=== PATIENT | male | born 1950 | race Two or more races ===

== ENCOUNTER → 2024-04-19 | Outpatient (CLI) | payer OTHER, MEDICAID, SELFPAY ==
[2024-04-19 17:01] LABS: Collection Type, Urine Clean Catch; Squamous Epithelial Cell,Urine 0 /hpf (0-5)
[2024-04-19 17:39] LABS: Bilirubin,Urine Negative (Negative); Blood,Urine Trace (Negative); Clarity,Urine Clear (Clear/Hazy); Color,Urine Lt-Yellow (Lt Yel-Yel); Glucose, Urine 2+ (Negative); Ketones,Urine Negative (Negative); Leukocyte Esterase,Urine Negative (Negative); Nitrite,Urine Negative (Negative); PH,Urine 6.5 (5.0-7.0); Protein,Urine 1+ (Neg - Trace); RBC,Urine 1 /hpf (0-3); Specific Gravity,Urine 1.013 (1.001-1.035); Urobilinogen,Urine Negative mg/dL (0.0-1.0); WBC,Urine 1 /hpf (0-5)
== END | disposition home or self-care (01) ==
PROVIDERS: PCP Internal Medicine; Referring Provider Internal Medicine; Visit Provider Internal Medicine
DX: N39.0 Urinary tract infection, site not specified (principal)
CPT/HCPCS: 81001; 87086

== ENCOUNTER → 2024-05-29 | Outpatient (CLI) | payer OTHER, MEDICAID, SELFPAY | END | disposition home or self-care (01) | PROVIDERS: PCP Internal Medicine; Referring Provider Internal Medicine; Visit Provider Student in an Organized Health Care Education/Training Program | DX: S01.402A Unspecified open wound of left cheek and temporomandibular area, initial encounter (principal); S21.109A Unspecified open wound of unspecified front wall of thorax without penetration into thoracic cavity, initial encounter; S01.90XA Unspecified open wound of unspecified part of head, initial encounter; X58.XXXA Exposure to other specified factors, initial encounter; D48.5 Neoplasm of uncertain behavior of skin; E11.69 Type 2 diabetes mellitus with other specified complication; N18.4 Chronic kidney disease, stage 4 (severe); Z79.84 Long term (current) use of oral hypoglycemic drugs | CPT/HCPCS: 17250; 99213; A9270; G0463 ==

== ENCOUNTER 2024-06-05 12:00 | Outpatient (RCR) | payer OTHER, SELFPAY ==
--- NOTE | 2024-06-06 08:18 | CTCCONSULT_ITS ---
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 Patient also diagnosed with melanoma in a March 2024 and was advised to follow-up with oncology. Patient was treated with radiation in the past for squamous cancer. Patient now have unhealing wounds. Patient have not received systemic therapy till now. 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 amlodipine - 10 mg 1 tab Daily 2. Aspir-81 - 81 mg 1 tab Daily 3. Colace - 100 mg 1 Capsule Daily 4. furosemide - 40 mg 1 tab Daily 5. glimepiride - 4 mg Daily 6. lovastatin - 40 mg Twice a Day 7. oxybutynin chloride - 5 mg 1 tab In the evening 8. Pyridium - 100 mg 1 tab Twice a Day 9. sertraline - 50 mg 1 tab In the evening 10. tamsulosin - 0.4 mg 1 Capsule In the evening 11. traZODone - 50 mg 1 tab In the evening 12. Trulicity - 0.75 mg/0.5 mL 1 Shot Weekly?Palabra Meds? Medications Last Reconciled by Elizabeth Craft MD on 06/05/2024 ALLERGIES: No Known Drug Allergies REVIEW OF SYSTEMS: A complete 14-point review of systems was performed and is negative except as noted in interval history. PHYSICAL EXAMINATION: VITAL SIGNS: Temperature?99.3, B/P?137/72, Height?64?inches, Oxygen?Saturation?99% Weight?139.6?lbs PAIN: 7 - Between severe and very severe pain ECOG Performance Status: 2 - Symptomatic; ambulatory; capable of self-care; >50% of waking hrs. not in bed GENERAL APPEARANCE: Appears well, in no apparent distress, appropriately interactive. HEENT: Normocephalic, no temporal wasting, normal conjunctiva, no scleral icterus, normal hearing, lips without lesions, neck normal range of motion. CARDIOVASCULAR: Not assessed. PULMONARY: Normal respiratory effort, no respiratory distress or use of accessory muscles, speaking in full sentences, no tachypnea. EXTREMITIES: No pedal edema or cyanosis. SKIN: Normal skin appearance. NEUROLOGIC: Alert and oriented x4. PSHYCHIATRIC: Appropriate affect, mood normal, behavior normal, intact thought and speech. LABORATORY DATA: I have personally reviewed and interpreted each of the patient?s relevant lab tests, abnormal findings are below: Date 07/18/19 ??GLUCOSE,RANDOM?(mg/dL) 220?H ??BLOOD?UREA?NITROGEN?(mg/dL) 33?H ??CREATININE?(mg/dL) 2.20?H ??SODIUM?(mmol/L) 140 ??POTASSIUM?(mmol/L) 4.0 ??CHLORIDE?(mmol/L) 103 ??CrCl?(CandG)?(ml/min) 34.28 ??AST/SGOT?(Unit/L) 16 ??ALT/SGPT?(Unit/L) 21 ??ALKALINE?PHOSPHATASE?(Unit/L) 66 ??BILIRUBIN,?TOTAL?(mg/dL) 0.3 ??PROTEIN?TOTAL?(gm/dl) 6.5 ??ALBUMIN,?SERUM?(gm/dl) 4.3 ??GLOBULIN?(gm/dl) 2.2?L ??ALBUMIN/GLOBULIN?RATIO 2.0 ??CALCIUM,?SERUM?(mg/dL) 9.2 ??CALCIUM?SERUM?(CORRECTED)?(mg/dL) 9.2 ASSESSMENT/PLAN: Locally advanced squamous cell cancer of the skin Patient is 74 yr old male with squamous cell cancer of skin and melanoma in situ Not received systemic therapy Unresectable Non healing wounds s/p radiation in the past will start on cemplimab as first line systemic therapy every 3 weeks PET /CT scan to see xtent of disease and to monitor disease Base line labs ordered Consent taken after informing the benefits and risk associated with disease Melanoma in situ Cont to monitor Will follow on pet to see any eveidence of systemic disease ORDERS: Tsh t4 cbc cmp pet scan Rad onc referrel and plaaitive referrel to dr whitehead Immunotherapy orders RETURN TO CLINIC: BILLING AND COMPLIANCE: I reviewed external records from providers outside my specialty as summarized above. I spent a total of 50 minutes on this patient?s care on the day of their visit excluding time spent related to any billed procedures. This time includes time spent with the patient as well as time spent documenting in the medical record, reviewing patients records and tests, obtaining history, placing orders, communicating with other healthcare professionals, counseling the patient, family or caregiver, and/or care coordination for the diagnoses above. Electronically Signed by: Lloyd Smith MD T: 8:15 AM CC: William?Hermelinda,?, Rodger?Rosa? PCP: Zaid Sanchez Referring: Zaid Sanchez This document was completed utilizing speech recognition software. Grammatical errors, random word insertions, pronoun errors, and incomplete sentences are an occasional consequence of this system due to software limitations, ambient noise, and hardware issues. Any formal questions or concerns about the content, text or information contained within the body of this dictation should be directly addressed to the provider for clarification.
== END 2024-06-07 23:59 | disposition home or self-care (01) ==
LOC: SCTC 12:00
PROVIDERS: PCP Internal Medicine; Referring Provider Internal Medicine; Visit Provider Internal Medicine Hematology & Oncology
DX: C44.329 Squamous cell carcinoma of skin of other parts of face (principal)
CPT/HCPCS: 99213; G0463

== ENCOUNTER → 2024-06-07 | Outpatient (CLI) | payer OTHER, SELFPAY | END | disposition home or self-care (01) | PROVIDERS: PCP Internal Medicine; Referring Provider Internal Medicine; Visit Provider Surgery | DX: C44.40 Unspecified malignant neoplasm of skin of scalp and neck (principal); I10 Essential (primary) hypertension; D48.5 Neoplasm of uncertain behavior of skin; E11.69 Type 2 diabetes mellitus with other specified complication; Z79.84 Long term (current) use of oral hypoglycemic drugs; N18.4 Chronic kidney disease, stage 4 (severe) | CPT/HCPCS: 16020; A9270 ==

== ENCOUNTER → 2024-06-21 | Outpatient (CLI) | payer OTHER, SELFPAY | END | disposition home or self-care (01) | PROVIDERS: PCP Internal Medicine; Referring Provider Internal Medicine; Visit Provider Student in an Organized Health Care Education/Training Program | DX: S01.402A Unspecified open wound of left cheek and temporomandibular area, initial encounter (principal); S21.109A Unspecified open wound of unspecified front wall of thorax without penetration into thoracic cavity, initial encounter; S01.90XA Unspecified open wound of unspecified part of head, initial encounter; X58.XXXA Exposure to other specified factors, initial encounter; L98.492 Non-pressure chronic ulcer of skin of other sites with fat layer exposed; C44.40 Unspecified malignant neoplasm of skin of scalp and neck; I10 Essential (primary) hypertension; D48.5 Neoplasm of uncertain behavior of skin; E11.69 Type 2 diabetes mellitus with other specified complication; Z79.84 Long term (current) use of oral hypoglycemic drugs; N18.4 Chronic kidney disease, stage 4 (severe) | CPT/HCPCS: 97597; A9270 ==

== ENCOUNTER 2024-06-26 16:34 | Emergency (ER) | payer OTHER, SELFPAY ==
[2024-06-26 16:39] VITALS: PULSE 78; RESP 20; O2SAT 98
[2024-06-26 17:03] VITALS: BP 119/53; PULSE 98; RESP 18; TEMP 37.7; O2SAT 95
[2024-06-26 17:04] VITALS: BMI 23.8
--- NOTE | 2024-06-26 17:09 | PD.EDRME ---
Rapid Medical Screening Exam RME Arrival date/time: 06/26/24 16:34 74-year-old male with cancer presents to the emergency department today with complaints of low hemoglobin patient was instructed to come to the ER for blood transfusion Vital signs: Vital Signs Temperature 100 F 06/26/24 17:03 Pulse Rate 98 06/26/24 17:03 Respiratory Rate 18 06/26/24 17:03 Blood Pressure 119/53 L 06/26/24 17:03 Pulse Oximetry (%) 95 06/26/24 17:03 Oxygen Delivery Method Room Air 06/26/24 17:03
[2024-06-26 22:02] VITALS: BP 123/49; PULSE 98; RESP 18; TEMP 37.6; O2SAT 96
--- NOTE | 2024-06-26 22:40 | PD.EDWEAK ---
ED Weakness RME/HPI General Chief complaint: Weakness Stated complaint: WEAK Source: patient and EMS Arrival date/time: 06/26/24 16:34 Mode of arrival: EMS Limitations: no limitations RME / HPI RME / HPI Narrative: 06/26/24 16:34 74-year-old male with cancer presents to the emergency department today with complaints of low hemoglobin patient was instructed to come to the ER for blood transfusion. Dr. Alonso?s Main ED Evaluation: 74-year-old male with a history of HTN, T2DM HLD, CKD, squamous cell carcinoma of the skin, melanoma in situ (diagnosed March 2024), and prior radiation treatment for squamous cell cancer presents to the ED for evaluation of low hemoglobin. The patient had labs drawn this morning. He received a voicemail which instructed him to come to the ER for a blood transfusion. He denies acute symptoms such as dizziness, syncope, chest pain, or shortness of breath. Patient notes he has an appointment tomorrow at 0800 for port placement for chemotherapy. Related Data Home Medications ?Medication ?Instructions ?Recorded ?Confirmed benazepril 40 mg tablet 40 mg PO BID 03/08/18 06/21/21 amlodipine 10 mg tablet 10 mg PO DAILY 06/18/21 06/21/21 famotidine 20 mg tablet 20 mg PO DAILY 06/18/21 06/21/21 furosemide 40 mg tablet 40 mg PO DAILY 06/18/21 06/21/21 glimepiride 2 mg tablet 2 mg PO QAM 06/18/21 06/21/21 labetalol 200 mg tablet 200 mg PO TID 06/18/21 06/21/21 lovastatin 40 mg tablet 40 mg PO QPM 06/18/21 06/21/21 mycophenolate mofetil 500 mg tablet 500 mg PO BID 06/18/21 06/21/21 oxybutynin chloride 5 mg tablet 5 mg PO QDAY 06/18/21 06/21/21 tamsulosin 0.4 mg capsule 0.4 mg PO DAILY 06/18/21 06/21/21 Previous Rx's ?Medication ?Instructions ?Recorded hydrocodone 5 mg-acetaminophen 325 1 tab PO BID PRN pain #30 tabs 06/07/24 mg tablet Allergies Allergy/AdvReac Type Severity Reaction Status Date / Time No Known Allergies Allergy Verified 06/26/24 16:45 Review of Systems Review of Systems Systems Reviewed: All systems reviewed, normal except as documented Past Medical History Past Medical History NEUROLOGIC: Positive Neurological Disorders and Brain Tumor (?possible metastatic brain lesion per CT 12/29/20); Negative Seizures, Guillain-[place] Syndrome or Spinal Cord Injury CARDIAC: Positive Cardiac Disorders, Hypercholesterolemia (TAKES MED) and Hypertension (TAKES MED); Negative Congestive Heart Failure, Edema, Cellulitis (HEALING HEAD DUE FROM SURG SKIN CA FROM 02/28) or Varicose Veins RESPIRATORY: Negative Chronic Obstructive Pulmonary Disease (COPD), Asthma, Tuberculosis or Sleep Apnea GASTROINTESTINAL: Positive Gastrointestinal Disorders and Gastroesophageal Reflux Disease (TAKES MED); Negative Hepatitis GENITOURINARY: Positive Genitourinary Disorders, Renal Disease (HAD TEMP DIALYSIS STATED AT THIS TIME KIDNEY FUNCTION WELL), Kidney Stones (HAD PROC X1), Dialysis (HAD TEMP DIALYSIS 02/28 HAD TEMP DIALYSIS CATH CHEST) and Benign Prostatic Hyperplasia MUSCULOSKELETAL: Positive Arthritis; Negative Musculoskeletal Disorders ENT: Positive Cataracts (FOR THIS PROC) ENDOCRINE: Positive Endocrine Disorders and Diabetes Mellitus Type 2 (TAKES MED); Negative Diabetes Mellitus Type 1 HEMATOLOGIC: Positive Blood Disorders and Anemia; Negative Sickle Cell Disease PSYCHO/SOCIAL: Positive Anxiety OTHER HISTORY: Positive Radiation Therapy (01/27), Chicken Pox, Measles and Cancer; Negative Hospitalization, Autoimmune Disease, Shingles, Falls, Blood Transfusions, Blood Transfusion Reaction, Anesthesia Reactions, Chemotherapy, MRSA or Mumps Family History FAMILY HISTORY: Positive Family Cardiac Disorders (MOTHER,SISTERS (HTN)); Negative Family Psychiatric Problems, Family Respiratory Disorders, Family Gastrointestinal Problems, Family Cancer, Family Surgery or Family Anesthesia Reaction Surgical History SURGICAL: Negative Pacemaker Social History SMOKING STATUS: Never smoker SECOND HAND EXPOSURE: No SUBSTANCE USE: does not use ED Exam General Limitations: Present no limitations General appearance: Present alert and in no apparent distress Head Head exam: Present atraumatic Eye Eye exam: Present normal appearance, PERRL and EOMI ENT ENT exam: Present normal exam, normal oropharynx and mucous membranes moist Neck Neck exam: Present normal inspection, full ROM and trachea midline Chest Chest inspection: Present normal inspection and symmetric chest wall rise Respiratory Respiratory exam: Present normal lung sounds bilaterally Cardiovascular Cardiovascular exam: Present regular rate, normal rhythm and normal heart sounds Abdominal Exam Abdominal exam: Present soft and normal bowel sounds Extremities Exam Extremities exam: Present normal inspection and full ROM Back Exam Back exam: Present normal inspection and full ROM Neurological Exam Neurological exam: Present alert, oriented X3 and CN II-XII intact Psychiatric Psychiatric exam: Present normal affect and normal mood Skin Skin exam: Present warm, dry, intact and normal color Course Quality Measures none Orders Category Date Time Status Insert IV NOW Care 06/26/24 17:08 Active Transfuse,blood/blood products NOW Care 06/26/24 17:08 Active Iron Stat Lab 06/26/24 17:23 Completed Total Iron Binding Capacity Stat Lab 06/26/24 17:23 Completed Type and Screen Stat Lab 06/26/24 17:23 Completed prbc [Red Blood Cells] Stat Lab 06/26/24 17:23 Completed Acetaminophen Tab [Tylenol ES Tab] Med 06/26/24 22:58 Discontinued 1,000 mg PO X1 ONE Vital Signs Vital signs: Vital Signs Temperature 100 F 06/26/24 17:03 Pulse Rate 98 06/26/24 17:03 Respiratory Rate 18 06/26/24 17:03 Blood Pressure 119/53 L 06/26/24 17:03 Pulse Oximetry (%) 95 06/26/24 17:03 Oxygen Delivery Method Room Air 06/26/24 17:03 Weakness MDM Narrative MDM Narrative:: 0130 Patient reevaluated. Stable, resting comfortable. He is getting his second unit of blood. 0530 Patient reevaluated. Stable, resting comfortable. He has no complaints. No fever, no chills, or anyother medical complaint. Scribe Attestation: I, Malika Scales, am scribing for and in the presence of Dr. Alonso. Provider Notation: Although this document has been carefully reviewed, there may still be some phonetic and other typographical errors. These errors are purely grammatical due to imperfections in the software program and should not be construed in any way to compromise the substance of the patient's medical care during this visit. Patient data External records reviewed:: [facility] previous records and EMS form Clinical information provided by:: patient and EMS Social determinants that could affect healthcare access:: none Patient has the following chronic illnesses:: see PMH How is presenting disease/condition affected by chronic disease/condition?: uneffected by Evaluation data The following diagnostics were reviewed and interpreted by me:: lab results Lab and/or radiology exams considered but not ordered:: na Interpretation Summary: Blood Type O Positive Antibody Screen Negative Medications / Prescriptions Medications or Prescriptions considered but not ordered:: na Medication administrations:: Medication Administration History Discontinued Medications Acetaminophen (Acetaminophen 500 Mg Tablet) 1,000 mg PO X1 ONE Stop: 06/26/24 22:59 Last Admin: 06/26/24 23:05 Dose: 1,000 mg Documented By: CVL as above, if any Consultations Consultation(s) initiated? (list below): No Diagnosis Weakness Differential Diagnosis: anemia, hypoglycemia, hypothyroidism and dehydration Most likely diagnosis given after review of the tests above:: see clinical impression Admission Indicated Admission indicated?: not indicated Admission Request Was there a request for admission?: No Disposition Plan Disposition Plan: Discharge Discharge Attestation Discharge Attestation: The patient and all family members were given an opportunity to ask questions and understood the discharge instructions. Discharge instructions specifically effects, indications for sooner follow up or return to the emergency department, and the expected course of current diagnosis. Patient condition: Stable Discharge Plan Plan Patient Disposition: HOME (Self Care) Disposition Comment: Stable for discharge home Patient condition on transfer: Stable Prescriptions/Referrals Prescriptions/Med Rec: No Action benazepril 40 mg Tablet 40 mg PO BID furosemide 40 mg tablet 40 mg PO DAILY labetalol 200 mg tablet 200 mg PO TID Patient Comments: TAKE 1 TABLET BY MOUTH THREE TIMES DAILY lovastatin 40 mg Tablet 40 mg PO QPM glimepiride 2 mg Tablet 2 mg PO QAM mycophenolate mofetil 500 mg tablet 500 mg PO BID Patient Comments: TAKE 1 TABLET BY MOUTH TWICE DAILY tamsulosin 0.4 mg Capsule 0.4 mg PO DAILY amlodipine 10 mg tablet 10 mg PO DAILY Patient Comments: TAKE 1 TABLET BY MOUTH ONCE DAILY oxybutynin chloride 5 mg Tablet 5 mg PO QDAY famotidine 20 mg tablet 20 mg PO DAILY hydrocodone-acetaminophen 5-325 mg tablet 1 tab PO BID MDD 2 PRN (Reason: pain) Qty: 30 0RF Referrals: [facility] [Outside] - In 1 week Lloyd Smith MD [Physician] - In 1 week Problem List Clinical Impression: Iron deficiency anemia, Hypochromic-microcytic anemia Patient/Caregiver Discharge Instructions Discharge Activity: activity as tolerated Education Materials: ED Anemia, Iron-Deficiency (Adult) Additional Instructions: Please follow-up with Dr. Smith in the cancer treatment center within the next several days. You can let him know that you received 2 units of packed red blood cells here in the emergency department today. Please return to the ER if you have any worsening or any further medical problems and we will help you. Print Language: Niuean Stand Alone Forms: Grac[employer]a Award Info., Patient Portal Info Letter
[2024-06-26 22:47] VITALS: BP 146/60; PULSE 93; RESP 20; TEMP 37.3; O2SAT 97
[2024-06-26] MEDS: ACETAMINOPHEN 500 MG TABLET 1000 MG PO (23:05)
[2024-06-26 23:06] VITALS: BP 146/65; PULSE 92; RESP 18; TEMP 37.2
[2024-06-26 23:10] LABS: Iron 9 mcg/dL (65-175); Total Iron Binding Capacity 251 mcg/dL (250-425)
[2024-06-26 23:21] VITALS: BP 144/60; PULSE 90; RESP 18; TEMP 37.2; O2SAT 97
[2024-06-27] VITALS (8 sets, daily range): BP systolic 131–138; BP diastolic 57–64; PULSE 76–95; RESP 16–18; TEMP 36.9–37.2; O2SAT 95–99
== END 2024-06-27 04:15 | disposition home or self-care (01) ==
PROVIDERS: Emergency Provider Emergency Medicine
DX: D50.9 Iron deficiency anemia, unspecified (principal); E11.22 Type 2 diabetes mellitus with diabetic chronic kidney disease; I12.9 Hypertensive chronic kidney disease with stage 1 through stage 4 chronic kidney disease, or unspecified chronic kidney disease; N18.9 Chronic kidney disease, unspecified; E78.5 Hyperlipidemia, unspecified; Z85.828 Personal history of other malignant neoplasm of skin; Z86.006 Personal history of melanoma in-situ; Z92.3 Personal history of irradiation
CPT/HCPCS: 36415; 36430; 83540; 83550; 86850; 86900; 86901; 86923; 93005; 99285; P9016; A9270

== ENCOUNTER → 2024-06-27 | Outpatient (CLI) | payer OTHER, SELFPAY ==
[2024-06-25 14:25] VITALS: BMI 27.3
[2024-06-26 12:34] LABS: Basophils % (Auto) 0 % (0-2.5); Eosinophils # (Auto) 0.5 Thou/mm3 (0.0-0.5); Eosinophils % (Auto) 3 % (0-10); Immature Granulocytes % (Auto) 1 % (0-0); Lymphocytes # (Auto) 1.7 Thou/mm3 (1.0-4.8); Lymphocytes % (Auto) 11 % (10-50); Mean Corpuscular HGB Conc 29.9 g/dl (31.0-37.0); Mean Corpuscular Volume 77 fL (80-100); Monocytes # (Auto) 1.4 Thou/mm3 (0.0-0.8); Monocytes % (Auto) 9 % (0-12); Neutrophils # (Auto) 12.2 Thou/mm3 (1.8-7.7); Neutrophils % (Auto) 77 % (37-80); Nucleated Red Blood Cell % 0 /100 WBC (0); Platelet Count 423 Thou/mm3 (140-440); RDW Standard Deviation 48.4 fL (35.1-43.9); Red Blood Count 2.39 Miln/mm3 (4.50-5.90)
[2024-06-26 12:40] LABS: INR 1.3 (0.9-1.3); Partial Thromboplastin Time 35.6 Seconds (22.0-36.0); Prothrombin Time 13.7 Seconds (9.0-12.2)
[2024-06-26 12:46] LABS: Hemoglobin 5.5 g/dL (13.5-16.0)
[2024-06-26 12:47] LABS: Hematocrit 18.4 % (41.0-53.0)
[2024-06-26 13:08] LABS: Path Review Blood Smear Sent to Pathologist
--- NOTE | 2024-06-26 13:28 | PC.NURSE ---
notified dr stauffer of critical values. order to cancel procedure. also notifed Dr.Bhinder Wang of critical values. attempt to call patient but unable to get no answer. left a voicemail to return phone call.
== END | disposition home or self-care (01) ==
LOC: SIRX 08:43
PROVIDERS: Radiology Diagnostic Radiology; Referring Provider Internal Medicine Hematology & Oncology; Visit Provider Internal Medicine Hematology & Oncology
DX: Z53.8 Procedure and treatment not carried out for other reasons (principal); Z01.812 Encounter for preprocedural laboratory examination
CPT/HCPCS: 36415; 85025; 85610; 85730

== ENCOUNTER → 2024-06-28 | Outpatient (CLI) | payer OTHER, SELFPAY | END | disposition home or self-care (01) | LOC: SWHD 13:05 | PROVIDERS: PCP Internal Medicine; Referring Provider Internal Medicine; Visit Provider Surgery | DX: S01.402A Unspecified open wound of left cheek and temporomandibular area, initial encounter (principal); S21.109A Unspecified open wound of unspecified front wall of thorax without penetration into thoracic cavity, initial encounter; S01.90XA Unspecified open wound of unspecified part of head, initial encounter; X58.XXXA Exposure to other specified factors, initial encounter; L98.492 Non-pressure chronic ulcer of skin of other sites with fat layer exposed; I10 Essential (primary) hypertension; D48.5 Neoplasm of uncertain behavior of skin; E11.69 Type 2 diabetes mellitus with other specified complication; Z79.84 Long term (current) use of oral hypoglycemic drugs; N18.4 Chronic kidney disease, stage 4 (severe) | CPT/HCPCS: 97597; A9270 ==

== ENCOUNTER 2024-07-02 07:57 | Outpatient (RCR) | payer OTHER, SELFPAY ==
[2024-06-27 11:07] LABS: Basophils % (Auto) 0 % (0-2.5); Eosinophils # (Auto) 0.5 Thou/mm3 (0.0-0.5); Eosinophils % (Auto) 3 % (0-10); Hematocrit 23.9 % (41.0-53.0); Immature Granulocytes % (Auto) 1 % (0-0); Immature Granulocytes Auto 0.08 Thou/mm3 (0.00-0.00); Lymphocytes # (Auto) 1.4 Thou/mm3 (1.0-4.8); Lymphocytes % (Auto) 9 % (10-50); Mean Corpuscular HGB Conc 31.8 g/dl (31.0-37.0); Mean Corpuscular Hemoglobin 24.6 pg (25.0-35.0); Mean Corpuscular Volume 77 fL (80-100); Monocytes # (Auto) 1.3 Thou/mm3 (0.0-0.8); Monocytes % (Auto) 9 % (0-12); Neutrophils % (Auto) 78 % (37-80); Nucleated Red Blood Cell % 0 /100 WBC (0); Platelet Count 387 Thou/mm3 (140-440); RDW Standard Deviation 46.9 fL (35.1-43.9); Red Blood Count 3.09 Miln/mm3 (4.50-5.90); White Blood Count 15.4 Thou/mm3 (3.8-10.6)
[2024-06-27 11:16] LABS: Hemoglobin 7.6 g/dL (13.5-16.0)
[2024-07-02 09:17] LABS: Basophils # (Auto) 0.1 Thou/mm3 (0.0-0.2); Basophils % (Auto) 0 % (0-2.5); Eosinophils # (Auto) 0.7 Thou/mm3 (0.0-0.5); Eosinophils % (Auto) 3 % (0-10); Hematocrit 21.7 % (41.0-53.0); Immature Granulocytes % (Auto) 1 % (0-0); Immature Granulocytes Auto 0.12 Thou/mm3 (0.00-0.00); Lymphocytes # (Auto) 1.7 Thou/mm3 (1.0-4.8); Lymphocytes % (Auto) 8 % (10-50); Mean Corpuscular HGB Conc 31.8 g/dl (31.0-37.0); Mean Corpuscular Hemoglobin 24.7 pg (25.0-35.0); Mean Corpuscular Volume 78 fL (80-100); Monocytes # (Auto) 1.8 Thou/mm3 (0.0-0.8); Monocytes % (Auto) 9 % (0-12); Neutrophils # (Auto) 16.4 Thou/mm3 (1.8-7.7); Neutrophils % (Auto) 79 % (37-80); Nucleated Red Blood Cell % 0 /100 WBC (0); Platelet Count 332 Thou/mm3 (140-440); RDW Standard Deviation 47.1 fL (35.1-43.9); Red Blood Count 2.79 Miln/mm3 (4.50-5.90); White Blood Count 20.8 Thou/mm3 (3.8-10.6)
[2024-07-02 09:22] LABS: Hemoglobin 6.9 g/dL (13.5-16.0)
[2024-07-02 09:36] LABS: Alanine Aminotransferase 31 U/L (10-49); Albumin, Serum 3.6 gm/dL (3.4-4.8); Albumin/Globulin Ratio 1.3 (1.2-2.2); Alkaline Phosphatase 273 U/L (46-116); Anion Gap 8 (7-16); Aspartate Amino Transferase 25 U/L (0-34); BUN/Creatinine Ratio 17 Ratio (12-20); Bilirubin,Total 0.3 mg/dL (0.3-1.2); Blood Urea Nitrogen 34 mg/dL (9-23); Calcium 10.5 mg/dL (8.3-10.6); Calcium (Corrected) 10.8 mg/dL (8.5-10.1); Carbon Dioxide 27.2 mMol/L (20.0-31.0); Chloride 98 mMol/L (98-107); Globulin 2.7 gm/dL (2.3-3.5); Glucose 167 mg/dL (74-106); Osmolality,Calculated 277 (275-295); Potassium 4.6 mMol/L (3.4-5.1); Sodium 133 mMol/L (136-145); Thyroid Stimulating Hormone 3.45 uIU/mL (0.55-4.78); Total Protein 6.3 gm/dL (5.7-8.2); eGFR 34 See Note
--- NOTE | 2024-07-15 01:22 | CTCFLWUP_ITS ---
Patient: MOLLY RANDALL : 1950 Page 3 of 4 FOLLOW UP NOTE DATE OF SERVICE: 07/04/2024 NAME: MOLLY RANDALL ACCOUNT: [id number] : 1950 AGE: 74 Telephone call to follow-up on patient. Patient has been having bleeding from the wound. 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 Patient also diagnosed with melanoma in a March 2024 and was advised to follow-up with oncology. Patient was treated with radiation in the past for squamous cancer. Patient now have unhealing wounds. Patient is on cemiplimab OTHER MEDICAL HISTORY/CONDITIONS: HYPERTENSION DIABETES TYPE 2 HIGH CHOLESTEROL SKIN CANCER HX CKD (2020) CATARACT EYE SURGERY RIGHT EYE [facility] SURGERY -SCALP/ SKIN TRANSPLANT FAMILY HISTORY: Father:?DENIES Mother:?DENIES Sibling:?DENIES Children:?DENIES Cancer History:?HX SQUAMOUS CELL CANCER SCALP,FACE SOCIAL HISTORY: Occupational?History:?RETIRED [employer] Education?Level:?Completed something less than 8th grade Marital?Status:?Single Tobacco?Pack?per?Day:?1 Tobacco?Use?Years:?15 Tobacco Use:?STOPPED SMOKING 40 YEARS AGO ETOH?Use:?STOPPED?DRINKING?40?YEARS?AGO Drug?Note:?DENIES MEDICATIONS: 1. amlodipine - 10 mg 1 tab Daily 2. Aspir-81 - 81 mg 1 tab Daily 3. Colace - 100 mg 1 Capsule Daily 4. furosemide - 40 mg 1 tab Daily 5. glimepiride - 4 mg Daily 6. lovastatin - 40 mg Twice a Day 7. oxybutynin chloride - 5 mg 1 tab In the evening 8. Pyridium - 100 mg 1 tab Twice a Day 9. sertraline - 50 mg 1 tab In the evening 10. tamsulosin - 0.4 mg 1 Capsule In the evening 11. traZODone - 50 mg 1 tab In the evening 12. Trulicity - 0.75 mg/0.5 mL 1 Shot Weekly Medications Last Reconciled by Elizabeth Craft RN on 06/05/2024 ALLERGIES: No Known Drug Allergies REVIEW OF SYSTEMS: A complete 14-point review of systems was performed and is negative except as noted in interval history. LABORATORY DATA: I have personally reviewed and interpreted each of the patient?s relevant lab tests, abnormal findings are below: Date 07/02/24 07/05/24 07/08/24 ??WHITE?BLOOD?COUNT?(Thou/mm3) 20.8?H 12.8?H 17.3?H ??RED?BLOOD?COUNT?(Miln/mm3) 2.79?L 3.51?L 3.33?L ??HEMOGLOBIN?(gm/dl) 6.9?LL 9.1?L 8.5?L ??HEMATOCRIT?(%) 21.7?LL 27.1?L 26.7?L ??PLATELET?COUNT?(Thou/mm3) 332 328 418 ??NEUTROPHILS?%,?AUTO?(%) 79 84?H 83?H ??LYMPH?%,?AUTO?(%) 8?L 5?L 8?L ??NEUTROPHILS,?AUTO?(Thou/mm3) 16.4?H 10.7?H 14.3?H ??GLUCOSE,RANDOM?(mg/dL) ? ? 148?H ??BLOOD?UREA?NITROGEN?(mg/dL) ? ? 32?H ??CREATININE?(mg/dL) ? ? 1.80?H ??SODIUM?(mmol/L) ? ? 133?L ??POTASSIUM?(mmol/L) ? ? 4.5 ??CHLORIDE?(mmol/L) ? ? 97?L ??CrCl?(CandG)?(ml/min) ? ? 31.62 ??AST/SGOT?(Unit/L) ? ? 29 ??ALT/SGPT?(Unit/L) ? ? 35 ??ALKALINE?PHOSPHATASE?(Unit/L) ? ? 317?H ??BILIRUBIN,?TOTAL?(mg/dL) ? ? 0.3 ??PROTEIN?TOTAL?(gm/dl) ? ? 6.1 ??ALBUMIN,?SERUM?(gm/dl) ? ? 3.4 ??GLOBULIN?(gm/dl) ? ? 2.7 ??ALBUMIN/GLOBULIN?RATIO ? ? 1.3 ??CALCIUM,?SERUM?(mg/dL) ? ? 10.5 ??CALCIUM?SERUM?(CORRECTED)?(mg/dL) ? ? 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 Patient is 74 yr old male with squamous cell cancer of skin and melanoma in situ Not received systemic therapy Unresectable Non healing wounds s/p radiation in the past Patient is on cemplimab as first line systemic therapy every 3 weeks PET /CT scan to see xtent of disease and to monitor disease Continue cemiplimab Transfuse to keep hemoglobin above 7 ORDERS: Order # Description [id number] Follow Up Appointment [id number] CBC + Comprehensive Metabolic Panel [id number] Lab Appointment [id number] Follow Up Appointment [id number] CBC + Comprehensive Metabolic Panel [id number] Lab Appointment [id number] Follow Up Appointment [id number] CBC + Comprehensive Metabolic Panel [id number] Lab Appointment [id number] Follow Up Appointment [id number] CBC + Comprehensive Metabolic Panel [id number] Lab Appointment [id number] Follow Up Appointment [id number] CBC + Comprehensive Metabolic Panel [id number] Lab Appointment [id number] Follow Up Appointment [id number] CBC + Comprehensive Metabolic Panel [id number] Lab Appointment [id number] Follow Up Appointment [id number] CBC + Comprehensive Metabolic Panel [id number] Lab Appointment [id number] Follow Up Appointment [id number] CBC + Comprehensive Metabolic Panel [id number] Lab Appointment [id number] Follow Up Appointment [id number] CBC + Comprehensive Metabolic Panel [id number] Lab Appointment [id number] Follow Up Appointment [id number] CBC + Comprehensive Metabolic Panel [id number] Lab Appointment [id number] Follow Up Appointment [id number] CBC + Comprehensive Metabolic Panel [id number] Lab Appointment [id number] Follow Up Appointment [id number] CBC + Comprehensive Metabolic Panel [id number] Lab Appointment [id number] Follow Up Appointment [id number] CBC + Comprehensive Metabolic Panel [id number] Lab Appointment [id number] Follow Up Appointment [id number] CBC + Comprehensive Metabolic Panel [id number] Lab Appointment [id number] Follow Up Appointment [id number] CBC + Comprehensive Metabolic Panel [id number] Lab Appointment [id number] Follow Up Appointment [id number] CBC + Comprehensive Metabolic Panel [id number] Lab Appointment [id number] Follow Up Appointment [id number] CBC + Comprehensive Metabolic Panel [id number] Lab Appointment [id number] Follow Up Appointment [id number] CBC + Comprehensive Metabolic Panel [id number] Lab Appointment [id number] Follow Up Appointment [id number] CBC + Comprehensive Metabolic Panel [id number] Lab Appointment [id number] Follow Up Appointment [id number] CBC + Comprehensive Metabolic Panel [id number] Lab Appointment [id number] Follow Up Appointment [id number] CBC + Comprehensive Metabolic Panel [id number] Lab Appointment [id number] Follow Up Appointment [id number] CBC + Comprehensive Metabolic Panel [id number] Lab Appointment [id number] Follow Up Appointment [id number] CBC + Comprehensive Metabolic Panel [id number] Lab Appointment [id number] Follow Up Appointment [id number] CBC + Comprehensive Metabolic Panel [id number] Lab Appointment [id number] Follow Up Appointment [id number] CBC + Comprehensive Metabolic Panel [id number] Lab Appointment [id number] Follow Up Appointment RETURN TO CLINIC: BILLING AND COMPLIANCE: I reviewed external records from providers outside my specialty as summarized above. I spent a total of 50 minutes on this patient?s care on the day of their visit excluding time spent related to any billed procedures. This time includes time spent with the patient as well as time spent documenting in the medical record, reviewing patients records and tests, obtaining history, placing orders, communicating with other healthcare professionals, counseling the patient, family or caregiver, and/or care coordination for the diagnoses above. Electronically Signed by: Lloyd Smith MD T: 1:20 AM CC: William?Hermelinda?, Rodger?Rosa? PCP: Zaid Sanchez Referring: Zaid Sanchez This document was completed utilizing speech recognition software. Grammatical errors, random word insertions, pronoun errors, and incomplete sentences are an occasional consequence of this system due to software limitations, ambient noise, and hardware issues. Any formal questions or concerns about the content, text or information contained within the body of this dictation should be directly addressed to the provider for clarification.
== END 2024-07-08 23:59 | disposition home or self-care (01) ==
LOC: SCTC 07:57
PROVIDERS: PCP Internal Medicine; Referring Provider Internal Medicine; Visit Provider Internal Medicine Hematology & Oncology
DX: Z51.11 Encounter for antineoplastic chemotherapy (principal); C44.329 Squamous cell carcinoma of skin of other parts of face
CPT/HCPCS: 36415; 36430; 80053; 84439; 84443; 85025; 86850; 86900; 86901; 86923; 96413; 99212; J7040; J7050; J9119; P9016; G0463

== ENCOUNTER → 2024-07-03 | Outpatient (CLI) | payer OTHER, SELFPAY | END | disposition home or self-care (01) | LOC: SWHD 13:06 | PROVIDERS: PCP Internal Medicine; Referring Provider Internal Medicine; Visit Provider Student in an Organized Health Care Education/Training Program | DX: S01.402A Unspecified open wound of left cheek and temporomandibular area, initial encounter (principal); S21.109A Unspecified open wound of unspecified front wall of thorax without penetration into thoracic cavity, initial encounter; S01.90XA Unspecified open wound of unspecified part of head, initial encounter; X58.XXXA Exposure to other specified factors, initial encounter; L98.492 Non-pressure chronic ulcer of skin of other sites with fat layer exposed; I10 Essential (primary) hypertension; D48.5 Neoplasm of uncertain behavior of skin; E11.69 Type 2 diabetes mellitus with other specified complication; Z79.84 Long term (current) use of oral hypoglycemic drugs; N18.4 Chronic kidney disease, stage 4 (severe) | CPT/HCPCS: 17250; A9270 ==

== ENCOUNTER 2024-07-05 14:37 | Emergency (ER) | payer MEDICARE, MEDICAID, SELFPAY ==
[2024-07-05 15:52] VITALS: BP 120/57; PULSE 87; RESP 18; TEMP 36.7; O2SAT 98; BMI 25.9
--- NOTE | 2024-07-05 15:53 | PD.EDADULT ---
ED General RME/HPI General Stated complaint: BLEED Time Seen by Provider: 07/05/24 14:54 Arrival date/time: 07/05/24 14:37 RME / HPI RME / HPI narrative: 74 year old male with history of hypertension, diabetes, hyperlipidemia, squamous cell carcinoma of the skin, melanoma in situ (diagnosed March 2024), h/o radiation therapy presents to the ED BIBA from the wound clinic. Related Data Home Medications ?Medication ?Instructions ?Recorded ?Confirmed benazepril 40 mg tablet 40 mg PO BID 03/08/18 06/21/21 amlodipine 10 mg tablet 10 mg PO DAILY 06/18/21 06/21/21 famotidine 20 mg tablet 20 mg PO DAILY 06/18/21 06/21/21 furosemide 40 mg tablet 40 mg PO DAILY 06/18/21 06/21/21 glimepiride 2 mg tablet 2 mg PO QAM 06/18/21 06/21/21 labetalol 200 mg tablet 200 mg PO TID 06/18/21 06/21/21 lovastatin 40 mg tablet 40 mg PO QPM 06/18/21 06/21/21 mycophenolate mofetil 500 mg tablet 500 mg PO BID 06/18/21 06/21/21 oxybutynin chloride 5 mg tablet 5 mg PO QDAY 06/18/21 06/21/21 tamsulosin 0.4 mg capsule 0.4 mg PO DAILY 06/18/21 06/21/21 Previous Rx's ?Medication ?Instructions ?Recorded hydrocodone 5 mg-acetaminophen 325 1 tab PO BID PRN pain #30 tabs 06/07/24 mg tablet Allergies Allergy/AdvReac Type Severity Reaction Status Date / Time No Known Allergies Allergy Verified 07/03/24 08:08 Course Orders Category Date Time Status CBC Stat Lab 07/05/24 16:04 Completed Type and Screen Stat Lab 07/05/24 16:04 Results Acetaminophen Tab [Tylenol Tab] Med 07/05/24 15:26 Discontinued 650 mg PO X1 ONE Vital Signs Vital signs: Vital Signs Temperature 98.0 F 07/05/24 15:52 Pulse Rate 87 07/05/24 15:52 Respiratory Rate 18 07/05/24 15:52 Blood Pressure 120/57 L 07/05/24 15:52 Pulse Oximetry (%) 98 07/05/24 15:52 Oxygen Delivery Method Room Air 03/28/25 15:52 MDM Medications Medication administrations:: Medication Administration History Discontinued Medications Acetaminophen (Acetaminophen 325 Mg Tablet) 650 mg PO X1 ONE Stop: 07/05/24 15:27 Last Admin: 07/05/24 17:25 Dose: 650 mg Documented By: NAN Medical Decision Making Lab Data 07/05/24 16:04 Labs: Lab Results 07/05/24 Range/Units 16:04 WBC 12.8 H D (3.8-10.6) Thou/mm3 RBC 3.51 L (4.50-5.90) Miln/mm3 Hgb 9.1 L D (13.5-16.0) g/dL Hct 27.1 L (41.0-53.0) % MCV 77 L (80-100) fL MCH 25.9 (25.0-35.0) pg MCHC 33.6 (31.0-37.0) g/dl RDW Std Deviation 46.2 H (35.1-43.9) fL Plt Count 328 (140-440) Thou/mm3 Neut % (Auto) 84 H (37-80) % Lymph % (Auto) 5 L (10-50) % Pickett % (Auto) 9 (0-12) % Eos % (Auto) 2 (0-10) % Baso % (Auto) 0 (0-2.5) % Neut # (Auto) 10.7 H (1.8-7.7) Thou/mm3 Lymph # (Auto) 0.6 L (1.0-4.8) Thou/mm3 Pickett # (Auto) 1.1 H (0.0-0.8) Thou/mm3 Eos # (Auto) 0.2 (0.0-0.5) Thou/mm3 Baso # (Auto) 0.1 (0.0-0.2) Thou/mm3 Immature Gran # (Auto) 0.07 H (0.00-0.00) Thou/mm3 Absolute Nucleated RBC 0.00 (0.00-0.00) Thou/mm3 Immature Gran % 1 H (0-0) % Nucleated RBC % 0 (0) /100 WBC Blood Type O Positive Blood Bank Wristband ID Yes Discharge Plan Plan Patient Disposition: HOME (Self Care) Prescriptions/Referrals Prescriptions/Med Rec: No Action benazepril 40 mg Tablet 40 mg PO BID furosemide 40 mg tablet 40 mg PO DAILY labetalol 200 mg tablet 200 mg PO TID Patient Comments: TAKE 1 TABLET BY MOUTH THREE TIMES DAILY lovastatin 40 mg Tablet 40 mg PO QPM glimepiride 2 mg Tablet 2 mg PO QAM mycophenolate mofetil 500 mg tablet 500 mg PO BID Patient Comments: TAKE 1 TABLET BY MOUTH TWICE DAILY tamsulosin 0.4 mg Capsule 0.4 mg PO DAILY amlodipine 10 mg tablet 10 mg PO DAILY Patient Comments: TAKE 1 TABLET BY MOUTH ONCE DAILY oxybutynin chloride 5 mg Tablet 5 mg PO QDAY famotidine 20 mg tablet 20 mg PO DAILY hydrocodone-acetaminophen 5-325 mg tablet 1 tab PO BID MDD 2 PRN (Reason: pain) Qty: 30 0RF Referrals: No Primary/Family,Physician [Primary Care Provider] - In 1 week Problem List Clinical Impression: Bleeding from wound Patient/Caregiver Discharge Instructions Additional Instructions: Continue following up with wound care as scheduled Print Language: Albanian Stand Alone Forms: Graciela Award Info., Patient Portal Info Letter
[2024-07-05 16:13] LABS: Basophils # (Auto) 0.1 Thou/mm3 (0.0-0.2); Basophils % (Auto) 0 % (0-2.5); Eosinophils # (Auto) 0.2 Thou/mm3 (0.0-0.5); Eosinophils % (Auto) 2 % (0-10); Hematocrit 27.1 % (41.0-53.0); Hemoglobin 9.1 g/dL (13.5-16.0); Immature Granulocytes % (Auto) 1 % (0-0); Immature Granulocytes Auto 0.07 Thou/mm3 (0.00-0.00); Lymphocytes # (Auto) 0.6 Thou/mm3 (1.0-4.8); Lymphocytes % (Auto) 5 % (10-50); Mean Corpuscular HGB Conc 33.6 g/dl (31.0-37.0); Mean Corpuscular Hemoglobin 25.9 pg (25.0-35.0); Mean Corpuscular Volume 77 fL (80-100); Monocytes # (Auto) 1.1 Thou/mm3 (0.0-0.8); Monocytes % (Auto) 9 % (0-12); Neutrophils # (Auto) 10.7 Thou/mm3 (1.8-7.7); Neutrophils % (Auto) 84 % (37-80); Nucleated Red Blood Cell % 0 /100 WBC (0); Platelet Count 328 Thou/mm3 (140-440); RDW Standard Deviation 46.2 fL (35.1-43.9); Red Blood Count 3.51 Miln/mm3 (4.50-5.90); White Blood Count 12.8 Thou/mm3 (3.8-10.6)
[2024-07-05] MEDS: ACETAMINOPHEN 325 MG TABLET 650 MG PO (17:25)
[2024-07-05 18:03] VITALS: BP 122/56; PULSE 90; RESP 18; TEMP 36.8; O2SAT 99
== END 2024-07-05 19:12 | disposition home or self-care (01) ==
PROVIDERS: Emergency Provider Emergency Medicine
DX: R58 Hemorrhage, not elsewhere classified (principal)
CPT/HCPCS: 36415; 85025; 86850; 86900; 86901; 99283; A9270

== ENCOUNTER → 2024-07-05 | Outpatient (CLI) | payer OTHER, SELFPAY | END | disposition home or self-care (01) | LOC: SWHD 13:22 | PROVIDERS: PCP Internal Medicine; Referring Provider Internal Medicine; Visit Provider Surgery | DX: S01.402A Unspecified open wound of left cheek and temporomandibular area, initial encounter (principal); S21.109A Unspecified open wound of unspecified front wall of thorax without penetration into thoracic cavity, initial encounter; S01.90XA Unspecified open wound of unspecified part of head, initial encounter; X58.XXXA Exposure to other specified factors, initial encounter; L98.492 Non-pressure chronic ulcer of skin of other sites with fat layer exposed; D48.5 Neoplasm of uncertain behavior of skin; E11.69 Type 2 diabetes mellitus with other specified complication; Z79.84 Long term (current) use of oral hypoglycemic drugs; N18.4 Chronic kidney disease, stage 4 (severe) | CPT/HCPCS: 97597; 97598; A9270 ==

== ENCOUNTER → 2024-07-08 | Outpatient (CLI) | payer OTHER, MEDICAID, SELFPAY ==
[2024-07-08 10:22] LABS: Basophils # (Auto) 0.1 Thou/mm3 (0.0-0.2); Basophils % (Auto) 0 % (0-2.5); Eosinophils # (Auto) 0.4 Thou/mm3 (0.0-0.5); Eosinophils % (Auto) 2 % (0-10); Hematocrit 26.7 % (41.0-53.0); Immature Granulocytes % (Auto) 1 % (0-0); Immature Granulocytes Auto 0.12 Thou/mm3 (0.00-0.00); Lymphocytes # (Auto) 1.3 Thou/mm3 (1.0-4.8); Lymphocytes % (Auto) 8 % (10-50); Mean Corpuscular HGB Conc 31.8 g/dl (31.0-37.0); Mean Corpuscular Hemoglobin 25.5 pg (25.0-35.0); Mean Corpuscular Volume 80 fL (80-100); Monocytes # (Auto) 1.1 Thou/mm3 (0.0-0.8); Monocytes % (Auto) 6 % (0-12); Neutrophils # (Auto) 14.3 Thou/mm3 (1.8-7.7); Neutrophils % (Auto) 83 % (37-80); Nucleated Red Blood Cell % 0 /100 WBC (0); Platelet Count 418 Thou/mm3 (140-440); RDW Standard Deviation 48.9 fL (35.1-43.9); Red Blood Count 3.33 Miln/mm3 (4.50-5.90); White Blood Count 17.3 Thou/mm3 (3.8-10.6)
[2024-07-08 10:35] LABS: Alanine Aminotransferase 35 U/L (10-49); Albumin, Serum 3.4 gm/dL (3.4-4.8); Albumin/Globulin Ratio 1.3 (1.2-2.2); Alkaline Phosphatase 317 U/L (46-116); Anion Gap 9 (7-16); Aspartate Amino Transferase 29 U/L (0-34); BUN/Creatinine Ratio 18 Ratio (12-20); Bilirubin,Total 0.3 mg/dL (0.3-1.2); Blood Urea Nitrogen 32 mg/dL (9-23); Calcium 10.5 mg/dL (8.3-10.6); Chloride 97 mMol/L (98-107); Creatinine (Component) 1.8 mg/dL (0.6-1.3); Globulin 2.7 gm/dL (2.3-3.5); Glucose 148 mg/dL (74-106); Osmolality,Calculated 276 (275-295); Potassium 4.5 mMol/L (3.4-5.1); Sodium 133 mMol/L (136-145); Total Protein 6.1 gm/dL (5.7-8.2); eGFR 39 See Note
[2024-07-08 10:55] LABS: Hemoglobin 8.5 g/dL (13.5-16.0)
== END | disposition home or self-care (01) ==
PROVIDERS: PCP Internal Medicine; Referring Provider Internal Medicine Hematology & Oncology; Visit Provider Internal Medicine Hematology & Oncology
DX: C44.90 Unspecified malignant neoplasm of skin, unspecified (principal)
CPT/HCPCS: 36415; 80053; 85025

== ENCOUNTER → 2024-07-09 | Outpatient (CLI) | payer OTHER, MEDICAID, SELFPAY ==
--- NOTE | 2024-07-09 09:30 | XR_ITS ---
EXAMINATION: PET/CT FUSION SKULL TO THIGH EXAM DATE AND TIME: July 09, 2024, 1002 hours Comparison brain MRI January 07, 2021, CT brain scan 12/29/2020, CT abdomen pelvis October 29, 2020 INDICATIONS: Diagnosis restaging post treatment skin cancer CTDI:vol (mGy) 3.82 DLP: (mGycm) 396.48 PROCEDURE: 15.9 mCi FDG was administered intravenously To allow for distribution and uptake of radiotracer, the patient was allowed to rest quietly in a shielded room. Imaging was performed on an integrated 16-slice PET/CT scanner, with scanning from the skull base to the mid thigh. Serum blood glucose at the time of the injection was measured 136 mg/dL. CT scanning was performed without oral or intravenous contrast material. FINDINGS: Head and Neck: Hypermetabolic extensive left frontal scalp lesion, at least transverse dimension 9.8 cm anterior posterior dimension 2.6 cm with large defect in the left frontal bone at the 7 cm Large hypermetabolic soft tissue mass below the left ear, AP dimension 8.5 cm, mediolateral dimension 4.8 cm 16 x 6 mm hypermetabolic soft tissue mass anterior to the left ear Suspicious for 25 mm left lobe hypermetabolic liver lesion axial image 146 and more caudad left lobe hypermetabolic liver lesion image 153 measuring 22 mm More subtle hypermetabolic areas in the right lobe of the liver without definite lesions on the CT images Chest: 12 x 14 mm hypermetabolic skin nodule anterior to the upper body the sternum, axial image 109 12 x 4 mm hypermetabolic skin nodule anterior to the sternum, axial image 109 Abdomen and Pelvis: 25 mm left lobe hypermetabolic liver lesion axial image 146 More caudad left lobe hypermetabolic liver lesion 22 mm Musculoskeletal: Marrow uptake is within normal range. IMPRESSION: Hypermetabolic left frontal scalp lesion 9.8 x 2.6 cm, with large frontal cranial vault defect, at least 7 cm, recommend brain MRI follow-up pre and postcontrast to assess intracranial extension Hypermetabolic soft tissue mass below the left ear 8.5 x 4.8 cm 16 x 6 mm hypermetabolic soft tissue mass anterior to the left ear 12 x 4 mm hypermetabolic skin nodule anterior to the upper body of the sternum 25 mm, 22 mm hypermetabolic left lobe liver lesions, recommend MRI abdomen liver follow-up pre and post intravenous contrast
== END | disposition home or self-care (01) ==
PROVIDERS: PCP Internal Medicine; Referring Provider Internal Medicine Hematology & Oncology; Visit Provider Internal Medicine Hematology & Oncology
DX: G93.89 Other specified disorders of brain (principal); H93.8X2 Other specified disorders of left ear; R22.2 Localized swelling, mass and lump, trunk; C44.90 Unspecified malignant neoplasm of skin, unspecified
CPT/HCPCS: 78815; A9552

== ENCOUNTER → 2024-07-10 | Outpatient (CLI) | payer OTHER, MEDICAID, SELFPAY | END | disposition home or self-care (01) | LOC: SWHD 12:42 | PROVIDERS: PCP Internal Medicine; Referring Provider Internal Medicine; Visit Provider Student in an Organized Health Care Education/Training Program | DX: S01.402A Unspecified open wound of left cheek and temporomandibular area, initial encounter (principal); S21.109A Unspecified open wound of unspecified front wall of thorax without penetration into thoracic cavity, initial encounter; S01.90XA Unspecified open wound of unspecified part of head, initial encounter; X58.XXXA Exposure to other specified factors, initial encounter; D48.5 Neoplasm of uncertain behavior of skin; E11.69 Type 2 diabetes mellitus with other specified complication; N18.4 Chronic kidney disease, stage 4 (severe); Z79.84 Long term (current) use of oral hypoglycemic drugs | CPT/HCPCS: 17250; A9270 ==

== ENCOUNTER → 2024-07-12 | Outpatient (CLI) | payer OTHER, MEDICAID, SELFPAY | END | disposition home or self-care (01) | LOC: SWHD 12:50 | PROVIDERS: PCP Internal Medicine; Referring Provider Internal Medicine; Visit Provider Surgery | DX: S01.402A Unspecified open wound of left cheek and temporomandibular area, initial encounter (principal); S21.109A Unspecified open wound of unspecified front wall of thorax without penetration into thoracic cavity, initial encounter; S01.90XA Unspecified open wound of unspecified part of head, initial encounter; X58.XXXA Exposure to other specified factors, initial encounter; D48.5 Neoplasm of uncertain behavior of skin; E11.69 Type 2 diabetes mellitus with other specified complication; N18.4 Chronic kidney disease, stage 4 (severe); Z79.84 Long term (current) use of oral hypoglycemic drugs | CPT/HCPCS: 99214; A9270; G0463 ==

== ENCOUNTER → 2024-07-15 | Outpatient (CLI) | payer OTHER, MEDICAID, SELFPAY ==
[2024-07-15 17:44] LABS: Basophils # (Auto) 0.1 Thou/mm3 (0.0-0.2); Basophils % (Auto) 0 % (0-2.5); Eosinophils # (Auto) 0.2 Thou/mm3 (0.0-0.5); Eosinophils % (Auto) 1 % (0-10); Hematocrit 21.3 % (41.0-53.0); Immature Granulocytes % (Auto) 1 % (0-0); Immature Granulocytes Auto 0.17 Thou/mm3 (0.00-0.00); Lymphocytes # (Auto) 1.8 Thou/mm3 (1.0-4.8); Lymphocytes % (Auto) 10 % (10-50); Mean Corpuscular Hemoglobin 24.8 pg (25.0-35.0); Mean Corpuscular Volume 83 fL (80-100); Monocytes # (Auto) 1.5 Thou/mm3 (0.0-0.8); Monocytes % (Auto) 8 % (0-12); Neutrophils # (Auto) 13.9 Thou/mm3 (1.8-7.7); Neutrophils % (Auto) 79 % (37-80); Nucleated Red Blood Cell % 0 /100 WBC (0); Platelet Count 451 Thou/mm3 (140-440); RDW Standard Deviation 53.9 fL (35.1-43.9); Red Blood Count 2.58 Miln/mm3 (4.50-5.90); White Blood Count 17.5 Thou/mm3 (3.8-10.6)
[2024-07-15 18:02] LABS: Alanine Aminotransferase 15 U/L (10-49); Albumin, Serum 3.2 gm/dL (3.4-4.8); Albumin/Globulin Ratio 1.4 (1.2-2.2); Alkaline Phosphatase 198 U/L (46-116); Anion Gap 7 (7-16); Aspartate Amino Transferase 10 U/L (0-34); BUN/Creatinine Ratio 15 Ratio (12-20); Bilirubin,Total 0.3 mg/dL (0.3-1.2); Blood Urea Nitrogen 33 mg/dL (9-23); Calcium 9.4 mg/dL (8.3-10.6); Carbon Dioxide 26.6 mMol/L (20.0-31.0); Chloride 99 mMol/L (98-107); Creatinine (Component) 2.2 mg/dL (0.6-1.3); Globulin 2.3 gm/dL (2.3-3.5); Glucose 246 mg/dL (74-106); Osmolality,Calculated 281 (275-295); Potassium 4.9 mMol/L (3.4-5.1); Sodium 133 mMol/L (136-145); Thyroid Stimulating Hormone 1.72 uIU/mL (0.55-4.78); Total Protein 5.5 gm/dL (5.7-8.2); eGFR 30 See Note
[2024-07-15 18:08] LABS: Hemoglobin 6.4 g/dL (13.5-16.0)
[2024-07-16 04:15] LABS: Path Review Blood Smear Sent to Pathologist
== END | disposition home or self-care (01) ==
LOC: SCTO 16:07
PROVIDERS: PCP Internal Medicine; Referring Provider Internal Medicine Hematology & Oncology; Visit Provider Internal Medicine Hematology & Oncology
DX: C44.90 Unspecified malignant neoplasm of skin, unspecified (principal); E03.2 Hypothyroidism due to medicaments and other exogenous substances
CPT/HCPCS: 36415; 80053; 84443; 85025

== ENCOUNTER 2024-07-17 13:49 | Emergency (ER) | payer OTHER, SELFPAY ==
[2024-07-17 13:53] VITALS: BP 126/56; PULSE 77; RESP 18; TEMP 36.8; O2SAT 99
[2024-07-17 13:58] VITALS: PULSE 76; RESP 16; O2SAT 99
--- NOTE | 2024-07-17 13:58 | PC.NURSE ---
Patient to er via ems from wound center, to er with c/o low hemoglobin, was told by cancer to come to er for low hemoglobin, however, patient went to his appointment instead, staff did not feel comfortable letting him drive, patient has no other complaints at this time, denies pain, skin warm dry and slightly pale. Patient has wound dressing to head in place from wound care, patient placed in gown, call light within reach, chart up to be seen by er provider.
[2024-07-17 14:03] VITALS: BMI 25.3
--- NOTE | 2024-07-17 14:16 | PD.EDADULT ---
ED General RME/HPI General Chief complaint: General Adult/Misc Complain Stated complaint: ABNORMAL LABS Time Seen by Provider: 07/17/24 14:15 Arrival date/time: 07/17/24 13:49 RME / HPI RME / HPI narrative: DR. PARMAR MAIN ED EVALUATION: 74 year old male presents to the Emergency Department BIB from cancer treatment center for abnormally low hemoglobin. May need blood transfusion. PMHx: Hypertension, diabetes, hyperlipidemia, squamous cell carcinoma of the skin, melanoma in situ (diagnosed March 2024), h/o radiation therapy. Social Hx: No tobacco, alcohol, or substance use. Related Data Home Medications ?Medication ?Instructions ?Recorded ?Confirmed benazepril 40 mg tablet 40 mg PO BID 03/08/18 06/21/21 amlodipine 10 mg tablet 10 mg PO DAILY 06/18/21 06/21/21 famotidine 20 mg tablet 20 mg PO DAILY 06/18/21 06/21/21 furosemide 40 mg tablet 40 mg PO DAILY 06/18/21 06/21/21 glimepiride 2 mg tablet 2 mg PO QAM 06/18/21 06/21/21 labetalol 200 mg tablet 200 mg PO TID 06/18/21 06/21/21 lovastatin 40 mg tablet 40 mg PO QPM 06/18/21 06/21/21 mycophenolate mofetil 500 mg tablet 500 mg PO BID 06/18/21 06/21/21 oxybutynin chloride 5 mg tablet 5 mg PO QDAY 06/18/21 06/21/21 tamsulosin 0.4 mg capsule 0.4 mg PO DAILY 06/18/21 06/21/21 Previous Rx's ?Medication ?Instructions ?Recorded hydrocodone 5 mg-acetaminophen 325 1 tab PO BID PRN pain #30 tabs 06/07/24 mg tablet Allergies Allergy/AdvReac Type Severity Reaction Status Date / Time No Known Allergies Allergy Verified 07/03/24 08:08 Review of Systems Review of Systems Systems Reviewed: All systems reviewed, normal except as documented Past Medical History Past Medical History NEUROLOGIC: Positive Neurological Disorders and Brain Tumor CARDIAC: Positive Cardiac Disorders, Hypercholesterolemia and Hypertension GASTROINTESTINAL: Positive Gastrointestinal Disorders and Gastroesophageal Reflux Disease GENITOURINARY: Positive Genitourinary Disorders, Renal Disease, Kidney Stones, Dialysis and Benign Prostatic Hyperplasia MUSCULOSKELETAL: Positive Arthritis ENT: Positive Cataracts ENDOCRINE: Positive Endocrine Disorders and Diabetes Mellitus Type 2 HEMATOLOGIC: Positive Blood Disorders and Anemia PSYCHO/SOCIAL: Positive Anxiety OTHER HISTORY: Positive Radiation Therapy, Chicken Pox, Measles and Cancer Family History FAMILY HISTORY: Positive Family Cardiac Disorders Social History SMOKING STATUS: Former smoker SECOND HAND EXPOSURE: No SUBSTANCE USE: does not use ALCOHOL: Never ED Exam Narrative Physical exam: GENERAL APPEARANCE: alert and oriented x 4, well-developed, well-nourished, no acute distress, looks pale VITALS: All vitals were reviewed and the pulse ox is 99% on room air, which is normal according to my interpretation. HEENT: Patient has a bandage over his head, chronic left mass. Atraumatic; pupils equal, round, reactive to light; EOMI; mucous membranes pink, moist; oropharynx clear NECK: Supple LUNGS: CTABL; no wheezes, no rales, no rhonchi HEART: Regular rate, regular rhythm; normal S1, S2; no murmurs ABDOMEN: non distended; normal BS; soft, no tenderness, no guarding, no rebound; no masses, no organomegaly, no hernia BACK: no CVA tenderness EXTREMITIES: atraumatic; no edema NEUROLOGIC: awake; alert and oriented x4; cranial nerves II-XII grossly intact; no focal sensory or motor deficits PSYCHIATRIC: appropriate mood and affect SKIN: warm, dry, normal color; no rashes Course Quality Measures none Orders Category Date Time Status CBC Stat Lab 07/17/24 14:23 Completed CMP [Comprehensive Metabolic Panel] Stat Lab 07/17/24 14:23 Completed Type and Screen Stat Lab 07/17/24 14:23 Completed Vital Signs Vital signs: Vital Signs Temperature 98.2 F 07/17/24 13:53 Pulse Rate 77 07/17/24 13:53 Respiratory Rate 18 07/17/24 13:53 Blood Pressure 126/56 L 07/17/24 13:53 Pulse Oximetry (%) 99 07/17/24 13:53 Oxygen Delivery Method Room Air 07/17/24 13:53 [facility] Patient data External records reviewed:: EMS form Clinical information provided by:: patient and EMS Social determinants that could affect healthcare access:: none Patient has the following chronic illnesses:: Hypertension, diabetes, hyperlipidemia, squamous cell carcinoma of the skin, melanoma in situ (diagnosed March 2024), h/o radiation therapy How is presenting disease/condition affected by chronic disease/condition?: exacerbated by Evaluation data The following diagnostics were reviewed and interpreted by me:: lab results Lab and/or radiology exams considered but not ordered:: none Interpretation Summary: Hemoglobin 7.5, no need for blood transfusion today. Medications Medications considered but not ordered:: none Medication administrations:: see above if any Consultations Consultation(s) initiated? (list below): No Diagnosis Differential Diagnosis ED Complaint MDM: anemia, dehydration, GI bleed Most likely diagnosis given after review of the tests above:: Anemia Admission Indicated Admission indicated?: not indicated Explain why admission is indicated or not indicated:: Patient has no emergent abnormalities on his studies and can be managed on an outpatient basis. Admission Request Was there a request for admission?: No Disposition Plan Disposition Plan: Discharge Discharge Attestation Discharge Attestation: The patient and all family members were given an opportunity to ask questions and understood the discharge instructions. Discharge instructions specifically effects, indications for sooner follow up or return to the emergency department, and the expected course of current diagnosis. Patient condition: Stable Medical Decision Making MDM Narrative MDM Narrative: IIra am scribing for and in the presence of Dr. Parmar. Differential Diagnosis Differential Diagnosis: anemia, dehydration, GI bleed Lab Data 07/17/24 14:23 07/17/24 14:23 Labs: Lab Results 07/17/24 Range/Units 14:23 WBC 17.3 H (3.8-10.6) Thou/mm3 RBC 2.93 L (4.50-5.90) Miln/mm3 Hgb 7.5 L (13.5-16.0) g/dL Hct 23.8 L (41.0-53.0) % MCV 81 (80-100) fL MCH 25.6 (25.0-35.0) pg MCHC 31.5 (31.0-37.0) g/dl RDW Std Deviation 52.0 H (35.1-43.9) fL Plt Count 445 H (140-440) Thou/mm3 Neut % (Auto) 79 (37-80) % Lymph % (Auto) 12 (10-50) % Dubois % (Auto) 8 (0-12) % Eos % (Auto) 1 (0-10) % Baso % (Auto) 0 (0-2.5) % Neut # (Auto) 13.6 H (1.8-7.7) Thou/mm3 Lymph # (Auto) 2.1 (1.0-4.8) Thou/mm3 Dubois # (Auto) 1.4 H (0.0-0.8) Thou/mm3 Eos # (Auto) 0.1 (0.0-0.5) Thou/mm3 Baso # (Auto) 0.1 (0.0-0.2) Thou/mm3 Immature Gran # (Auto) 0.10 H (0.00-0.00) Thou/mm3 Absolute Nucleated RBC 0.00 (0.00-0.00) Thou/mm3 Immature Gran % 1 H (0-0) % Nucleated RBC % 0 (0) /100 WBC Sodium 137 (136-145) mMol/L Potassium 4.8 (3.4-5.1) mMol/L Chloride 102 (98-107) mMol/L Carbon Dioxide 27.3 (20.0-31.0) mMol/L Anion Gap 8 (7-16) BUN 31 H (9-23) mg/dL Creatinine 2.0 H (0.6-1.3) mg/dL Estim Creat Clear Calc 25.7 L (>60) mL/min eGFR 34 L (60 - ) See Note BUN/Creatinine Ratio 16 (12-20) Ratio Glucose 110 H D (74-106) mg/dL Calculated Osmolality 281 (275-295) Calcium 10.6 (8.3-10.6) mg/dL Corrected Calcium 10.6 H (8.5-10.1) mg/dL Total Bilirubin 0.3 (0.3-1.2) mg/dL AST 12 (0-34) U/L ALT 14 (10-49) U/L Alkaline Phosphatase 202 H (46-116) U/L Total Protein 7.0 (5.7-8.2) gm/dL Albumin 4.0 D (3.4-4.8) gm/dL Globulin 3.0 (2.3-3.5) gm/dL Albumin/Globulin Ratio 1.3 (1.2-2.2) Blood Type O Positive Antibody Screen NEGATIVE Blood Bank Wristband ID Yes Discharge Plan Plan Patient Disposition: HOME (Self Care) Prescriptions/Referrals Prescriptions/Med Rec: No Action benazepril 40 mg Tablet 40 mg PO BID furosemide 40 mg tablet 40 mg PO DAILY labetalol 200 mg tablet 200 mg PO TID Patient Comments: TAKE 1 TABLET BY MOUTH THREE TIMES DAILY lovastatin 40 mg Tablet 40 mg PO QPM glimepiride 2 mg Tablet 2 mg PO QAM mycophenolate mofetil 500 mg tablet 500 mg PO BID Patient Comments: TAKE 1 TABLET BY MOUTH TWICE DAILY tamsulosin 0.4 mg Capsule 0.4 mg PO DAILY amlodipine 10 mg tablet 10 mg PO DAILY Patient Comments: TAKE 1 TABLET BY MOUTH ONCE DAILY oxybutynin chloride 5 mg Tablet 5 mg PO QDAY famotidine 20 mg tablet 20 mg PO DAILY hydrocodone-acetaminophen 5-325 mg tablet 1 tab PO BID MDD 2 PRN (Reason: pain) Qty: 30 0RF Referrals: Zaid Sanchez MD [Primary Care Provider] - In 1 week Problem List Clinical Impression: Anemia Patient/Caregiver Discharge Instructions Education Materials: ED Anemia Type Not Specified Print Language: Bulgarian Stand Alone Forms: Graciela Award Info., Patient Portal Info Letter
[2024-07-17 14:38] LABS: Basophils # (Auto) 0.1 Thou/mm3 (0.0-0.2); Basophils % (Auto) 0 % (0-2.5); Eosinophils # (Auto) 0.1 Thou/mm3 (0.0-0.5); Eosinophils % (Auto) 1 % (0-10); Immature Granulocytes % (Auto) 1 % (0-0); Lymphocytes # (Auto) 2.1 Thou/mm3 (1.0-4.8); Lymphocytes % (Auto) 12 % (10-50); Mean Corpuscular Volume 81 fL (80-100); Monocytes # (Auto) 1.4 Thou/mm3 (0.0-0.8); Monocytes % (Auto) 8 % (0-12); Nucleated Red Blood Cell % 0 /100 WBC (0)
[2024-07-17 14:39] LABS: Hematocrit 23.8 % (41.0-53.0); Mean Corpuscular HGB Conc 31.5 g/dl (31.0-37.0); Mean Corpuscular Hemoglobin 25.6 pg (25.0-35.0); Neutrophils # (Auto) 13.6 Thou/mm3 (1.8-7.7); Neutrophils % (Auto) 79 % (37-80); Platelet Count 445 Thou/mm3 (140-440); Red Blood Count 2.93 Miln/mm3 (4.50-5.90); White Blood Count 17.3 Thou/mm3 (3.8-10.6)
[2024-07-17 14:40] LABS: Hemoglobin 7.5 g/dL (13.5-16.0)
[2024-07-17 14:58] LABS: Alanine Aminotransferase 14 U/L (10-49); Albumin/Globulin Ratio 1.3 (1.2-2.2); Alkaline Phosphatase 202 U/L (46-116); Anion Gap 8 (7-16); Aspartate Amino Transferase 12 U/L (0-34); BUN/Creatinine Ratio 16 Ratio (12-20); Bilirubin,Total 0.3 mg/dL (0.3-1.2); Blood Urea Nitrogen 31 mg/dL (9-23); Calcium 10.6 mg/dL (8.3-10.6); Calcium (Corrected) 10.6 mg/dL (8.5-10.1); Carbon Dioxide 27.3 mMol/L (20.0-31.0); Chloride 102 mMol/L (98-107); Estimated Creatinine Clearance 25.7 mL/min (>60); Glucose 110 mg/dL (74-106); Osmolality,Calculated 281 (275-295); Potassium 4.8 mMol/L (3.4-5.1); Sodium 137 mMol/L (136-145); eGFR 34 See Note
[2024-07-17 16:43] VITALS: BP 132/66; PULSE 82; RESP 16; O2SAT 99
== END 2024-07-17 16:43 | disposition home or self-care (01) ==
PROVIDERS: Emergency Provider Emergency Medicine; PCP Internal Medicine
DX: C44.92 Squamous cell carcinoma of skin, unspecified (principal); D63.0 Anemia in neoplastic disease; I10 Essential (primary) hypertension; E11.9 Type 2 diabetes mellitus without complications; E78.00 Pure hypercholesterolemia, unspecified; D03.9 Melanoma in situ, unspecified; Z87.891 Personal history of nicotine dependence; Z92.3 Personal history of irradiation
CPT/HCPCS: 36415; 80053; 85025; 86850; 86900; 86901; 99283

== ENCOUNTER → 2024-07-17 | Outpatient (CLI) | payer OTHER, MEDICAID, SELFPAY | END | disposition home or self-care (01) | LOC: SWHD 12:44 | PROVIDERS: PCP Internal Medicine; Referring Provider Internal Medicine; Visit Provider Student in an Organized Health Care Education/Training Program | DX: S01.402A Unspecified open wound of left cheek and temporomandibular area, initial encounter (principal); S21.109A Unspecified open wound of unspecified front wall of thorax without penetration into thoracic cavity, initial encounter; S01.90XA Unspecified open wound of unspecified part of head, initial encounter; X58.XXXA Exposure to other specified factors, initial encounter; D48.5 Neoplasm of uncertain behavior of skin; E11.69 Type 2 diabetes mellitus with other specified complication; N18.4 Chronic kidney disease, stage 4 (severe); Z79.84 Long term (current) use of oral hypoglycemic drugs | CPT/HCPCS: 17250; 99214; A9270; G0463 ==

== ENCOUNTER → 2024-07-19 | Outpatient (CLI) | payer OTHER, SELFPAY | END | disposition home or self-care (01) | LOC: SWHD 12:39 | PROVIDERS: PCP Internal Medicine; Referring Provider Internal Medicine; Visit Provider Student in an Organized Health Care Education/Training Program | DX: S01.402A Unspecified open wound of left cheek and temporomandibular area, initial encounter (principal); S21.109A Unspecified open wound of unspecified front wall of thorax without penetration into thoracic cavity, initial encounter; S01.90XA Unspecified open wound of unspecified part of head, initial encounter; X58.XXXA Exposure to other specified factors, initial encounter; D48.5 Neoplasm of uncertain behavior of skin; E11.69 Type 2 diabetes mellitus with other specified complication; N18.4 Chronic kidney disease, stage 4 (severe); Z79.84 Long term (current) use of oral hypoglycemic drugs | CPT/HCPCS: 11042; 97597; A9270 ==

== ENCOUNTER → 2024-07-22 | Outpatient (CLI) | payer OTHER, SELFPAY ==
[2024-07-22 10:48] LABS: Basophils % (Auto) 0 % (0-2.5); Eosinophils # (Auto) 0.4 Thou/mm3 (0.0-0.5); Eosinophils % (Auto) 3 % (0-10); Hematocrit 21.4 % (41.0-53.0); Immature Granulocytes % (Auto) 1 % (0-0); Immature Granulocytes Auto 0.07 Thou/mm3 (0.00-0.00); Lymphocytes # (Auto) 1.8 Thou/mm3 (1.0-4.8); Lymphocytes % (Auto) 13 % (10-50); Mean Corpuscular HGB Conc 30.8 g/dl (31.0-37.0); Mean Corpuscular Hemoglobin 24.7 pg (25.0-35.0); Mean Corpuscular Volume 80 fL (80-100); Monocytes # (Auto) 1.1 Thou/mm3 (0.0-0.8); Monocytes % (Auto) 8 % (0-12); Neutrophils # (Auto) 10.8 Thou/mm3 (1.8-7.7); Neutrophils % (Auto) 76 % (37-80); Nucleated Red Blood Cell % 0 /100 WBC (0); Platelet Count 404 Thou/mm3 (140-440); RDW Standard Deviation 50.7 fL (35.1-43.9); Red Blood Count 2.67 Miln/mm3 (4.50-5.90); White Blood Count 14.2 Thou/mm3 (3.8-10.6)
[2024-07-22 10:52] LABS: Alanine Aminotransferase 31 U/L (10-49); Albumin, Serum 3.7 gm/dL (3.4-4.8); Albumin/Globulin Ratio 1.3 (1.2-2.2); Alkaline Phosphatase 174 U/L (46-116); Anion Gap 9 (7-16); Aspartate Amino Transferase 30 U/L (0-34); BUN/Creatinine Ratio 16 Ratio (12-20); Bilirubin,Total 0.3 mg/dL (0.3-1.2); Blood Urea Nitrogen 34 mg/dL (9-23); Calcium 10.3 mg/dL (8.3-10.6); Calcium (Corrected) 10.5 mg/dL (8.5-10.1); Chloride 102 mMol/L (98-107); Creatinine (Component) 2.1 mg/dL (0.6-1.3); Globulin 2.9 gm/dL (2.3-3.5); Glucose 126 mg/dL (74-106); Osmolality,Calculated 281 (275-295); Potassium 4.6 mMol/L (3.4-5.1); Sodium 136 mMol/L (136-145); Total Protein 6.6 gm/dL (5.7-8.2); eGFR 32 See Note
[2024-07-22 10:55] LABS: Hemoglobin 6.6 g/dL (13.5-16.0)
== END | disposition home or self-care (01) ==
LOC: SCTO 09:38
PROVIDERS: PCP Internal Medicine; Referring Provider Internal Medicine Hematology & Oncology; Visit Provider Internal Medicine Hematology & Oncology
DX: E03.2 Hypothyroidism due to medicaments and other exogenous substances (principal); C44.90 Unspecified malignant neoplasm of skin, unspecified
CPT/HCPCS: 36415; 80053; 84443; 85025

== ENCOUNTER → 2024-07-24 | Outpatient (CLI) | payer OTHER, SELFPAY | END | disposition home or self-care (01) | LOC: SWHD 12:46 | PROVIDERS: PCP Internal Medicine; Referring Provider Internal Medicine; Visit Provider Student in an Organized Health Care Education/Training Program | DX: S01.402A Unspecified open wound of left cheek and temporomandibular area, initial encounter (principal); S21.109A Unspecified open wound of unspecified front wall of thorax without penetration into thoracic cavity, initial encounter; S01.90XA Unspecified open wound of unspecified part of head, initial encounter; X58.XXXA Exposure to other specified factors, initial encounter; D48.5 Neoplasm of uncertain behavior of skin; E11.69 Type 2 diabetes mellitus with other specified complication; N18.4 Chronic kidney disease, stage 4 (severe); Z79.84 Long term (current) use of oral hypoglycemic drugs | CPT/HCPCS: 17250; 99214; A9270; G0463 ==

== ENCOUNTER → 2024-07-26 | Outpatient (CLI) | payer OTHER, SELFPAY | END | disposition home or self-care (01) | LOC: SWHD 12:35 | PROVIDERS: PCP Internal Medicine; Referring Provider Internal Medicine; Visit Provider Physician Assistant | DX: S01.402A Unspecified open wound of left cheek and temporomandibular area, initial encounter (principal); S21.109A Unspecified open wound of unspecified front wall of thorax without penetration into thoracic cavity, initial encounter; S01.90XA Unspecified open wound of unspecified part of head, initial encounter; X58.XXXA Exposure to other specified factors, initial encounter; D48.5 Neoplasm of uncertain behavior of skin; E11.69 Type 2 diabetes mellitus with other specified complication; N18.4 Chronic kidney disease, stage 4 (severe); Z79.84 Long term (current) use of oral hypoglycemic drugs | CPT/HCPCS: 17250; A9270 ==

== ENCOUNTER → 2024-07-31 | Outpatient (CLI) | payer OTHER, SELFPAY | END | disposition home or self-care (01) | LOC: SWHD 12:40 | PROVIDERS: PCP Internal Medicine; Referring Provider Internal Medicine; Visit Provider Surgery | DX: S01.402A Unspecified open wound of left cheek and temporomandibular area, initial encounter (principal); S21.109A Unspecified open wound of unspecified front wall of thorax without penetration into thoracic cavity, initial encounter; S01.90XA Unspecified open wound of unspecified part of head, initial encounter; X58.XXXA Exposure to other specified factors, initial encounter; D48.5 Neoplasm of uncertain behavior of skin; E11.69 Type 2 diabetes mellitus with other specified complication; N18.4 Chronic kidney disease, stage 4 (severe); Z79.84 Long term (current) use of oral hypoglycemic drugs | CPT/HCPCS: 99214; A9270; G0463 ==

== ENCOUNTER → 2024-08-02 | Outpatient (CLI) | payer OTHER, SELFPAY | END | disposition home or self-care (01) | LOC: SWHD 12:35 | PROVIDERS: PCP Internal Medicine; Referring Provider Internal Medicine; Visit Provider Surgery | DX: S01.402A Unspecified open wound of left cheek and temporomandibular area, initial encounter (principal); S21.109A Unspecified open wound of unspecified front wall of thorax without penetration into thoracic cavity, initial encounter; S01.90XA Unspecified open wound of unspecified part of head, initial encounter; X58.XXXA Exposure to other specified factors, initial encounter; D48.5 Neoplasm of uncertain behavior of skin; E11.69 Type 2 diabetes mellitus with other specified complication; N18.4 Chronic kidney disease, stage 4 (severe); Z79.84 Long term (current) use of oral hypoglycemic drugs | CPT/HCPCS: 11042; 11045 ×10 ==

== ENCOUNTER 2024-08-07 08:04 | Outpatient (RCR) | payer OTHER, SELFPAY ==
--- NOTE | 2024-07-30 13:57 | CTCFLWUP_ITS ---
Patient: MOLLY RANDALL : 1950 Page 2 of 5 FOLLOW UP NOTE DATE OF SERVICE: 07/30/2024 NAME: MOLLY RANDALL ACCOUNT: [id number] : 1950 AGE: 74 INTERVAL HISTORY: Mr. Antony Lou, a patient with scalp cancer, presents for follow-up after starting treatment with cemiplimab in May 2024. The patient reports feeling well and is happy with his progress, stating that he believes the tumor is decreasing in size. He mentions eating very well and appears to be in better overall health compared to his initial presentation. Mr. Antony Lou has been adherent to his treatment regimen, which includes immunotherapy. He received a blood transfusion on July 23, consisting of two units. The patient reports no specific complaints or new symptoms during this visit. Since starting treatment, Mr. Antony Lou's overall health status appears to have improved significantly. The clinician notes that the patient looks so much better and appears to be a different person compared to his initial presentation, suggesting a positive response to the current treatment plan. 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 Patient also diagnosed with melanoma in a March 2024 and was advised to follow-up with oncology. Patient was treated with radiation in the past for squamous cancer. Patient now have unhealing wounds. 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 amlodipine - 10 mg 1 tab Daily 2. Aspir-81 - 81 mg 1 tab Daily 3. Colace - 100 mg 1 Capsule Daily 4. furosemide - 40 mg 1 tab Daily 5. glimepiride - 4 mg Daily 6. lovastatin - 40 mg Twice a Day 7. oxybutynin chloride - 5 mg 1 tab In the evening 8. Pyridium - 100 mg 1 tab Twice a Day 9. sertraline - 50 mg 1 tab In the evening 10. tamsulosin - 0.4 mg 1 Capsule In the evening 11. traZODone - 50 mg 1 tab In the evening 12. Trulicity - 0.75 mg/0.5 mL 1 Shot Weekly Medications Last Reconciled by Anna Hood MA on 07/30/2024 ALLERGIES: No Known Drug Allergies REVIEW OF SYSTEMS: A complete 14-point review of systems was performed and is negative except as noted in interval history. PHYSICAL EXAMINATION: VITAL SIGNS: Temperature?98.2, B/P?129/68, Oxygen?Saturation?100% Weight?134.8?lbs (Change?since?07/23/24:?1.6?lbs) PAIN: 0 - No pain ECOG Performance Status: 1 - Symptomatic; ambulatory; restricted in strenuous activity GENERAL APPEARANCE: Appears well, in no apparent distress, appropriately interactive. HEENT: Normocephalic, no temporal wasting, normal conjunctiva, no scleral icterus, normal hearing, lips without lesions, neck normal range of motion. CARDIOVASCULAR: Not assessed. PULMONARY: Normal respiratory effort, no respiratory distress or use of accessory muscles, speaking in full sentences, no tachypnea. EXTREMITIES: No pedal edema or cyanosis. SKIN: Normal skin appearance. NEUROLOGIC: Alert and oriented x4. PSHYCHIATRIC: Appropriate affect, mood normal, behavior normal, intact thought and speech. LABORATORY DATA: I have personally reviewed and interpreted each of the patient?s relevant lab tests, abnormal findings are below: Date 07/17/24 07/22/24 ??WHITE?BLOOD?COUNT?(Thou/mm3) 17.3?H 14.2?H ??RED?BLOOD?COUNT?(Miln/mm3) 2.93?L 2.67?L ??HEMOGLOBIN?(gm/dl) 7.5?L 6.6?LL ??HEMATOCRIT?(%) 23.8?L 21.4?LL ??PLATELET?COUNT?(Thou/mm3) 445?H 404 ??NEUTROPHILS?%,?AUTO?(%) 79 76 ??LYMPH?%,?AUTO?(%) 12 13 ??NEUTROPHILS,?AUTO?(Thou/mm3) 13.6?H 10.8?H ??GLUCOSE,RANDOM?(mg/dL) 110?H 126?H ??BLOOD?UREA?NITROGEN?(mg/dL) 31?H 34?H ??CREATININE?(mg/dL) 2.00?H 2.10?H ??SODIUM?(mmol/L) 137 136 ??POTASSIUM?(mmol/L) 4.8 4.6 ??CHLORIDE?(mmol/L) 102 102 ??CrCl?(CandG)?(ml/min) 28.46 27.10 ??AST/SGOT?(Unit/L) 12 30 ??ALT/SGPT?(Unit/L) 14 31 ??ALKALINE?PHOSPHATASE?(Unit/L) 202?H 174?H ??BILIRUBIN,?TOTAL?(mg/dL) 0.3 0.3 ??PROTEIN?TOTAL?(gm/dl) 7.0 6.6 ??ALBUMIN,?SERUM?(gm/dl) 4.0 3.7 ??GLOBULIN?(gm/dl) 3.0 2.9 ??ALBUMIN/GLOBULIN?RATIO 1.3 1.3 ??CALCIUM,?SERUM?(mg/dL) 10.6 10.3 ??CALCIUM?SERUM?(CORRECTED)?(mg/dL) 10.6?H 10.5?H ASSESSMENT/PLAN: 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 Scalp Cancer Assessment: Patient started on cemiplimab in May 2024 for scalp cancer. Recent PET-CT scan shows multiple concerning lesions: 1. Hypermetabolic left frontal scalp lesion (9.8 x 2 cm) 2. Two lesions on left ear (8.5 x 4.8 cm and 16 x 6 mm) 3. Two liver spots (25 mm and 22 mm) 4. Sternum lesion (12 x 4 mm) Patient reports subjective improvement, stating the tumor is decreasing in size. However, the left frontal scalp lesion is concerning for potential intracranial involvement. Plan: - Continue cemiplimab immunotherapy - Order MRI brain to evaluate for intracranial involvement of left frontal scalp lesion - Order MRI liver to further evaluate liver lesions - Monitor thyroid function due to immunotherapy - Schedule follow-up PET-CT scan in 3 months - Follow-up appointment in 4 weeks - Continue current treatment schedule (patient to return in 2 weeks for next treatment) Anemia Assessment: Patient received blood transfusion on July 23, 2024. Two units of blood were administered. Plan: - Continue to monitor hemoglobin levels - Assess need for further transfusions at follow-up appointments Bone Health Concerns Assessment: Patient has bone-related issues, possibly related to cancer metastases or treatment effects. Consideration for medication to decrease calcium levels, pending dental clearance. Plan: - Refer patient to dentist for clearance - Once dental clearance obtained, consider initiating medication to lower calcium levels (pending insurance approval) - Advise patient to increase water intake ORDERS: Order # Description [id number] MRI + Brain + With W/O Contrast [id number] Comprehensive Metabolic Panel - 12 + CBC with Auto Diff [id number] Thyroid Stimulating Hormone + Thyroxine, Free + Assay Triiodothyronine (T3) [id number] Cortisol Free [id number] MD Follow Up 4 Week RETURN TO CLINIC: 4 weeks BILLING AND COMPLIANCE: I reviewed external records from providers outside my specialty as summarized above. I spent a total of 50 minutes on this patient?s care on the day of their visit excluding time spent related to any billed procedures. This time includes time spent with the patient as well as time spent documenting in the medical record, reviewing patients records and tests, obtaining history, placing orders, communicating with other healthcare professionals, counseling the patient, family or caregiver, and/or care coordination for the diagnoses above. Electronically Signed by: Lloyd Smith MD T: 1:55 PM CC: William?Hermelinda,?, Rodger?Rosa? PCP: Zaid Sanchez Referring: Zaid Sanchez This document was completed utilizing speech recognition software. Grammatical errors, random word insertions, pronoun errors, and incomplete sentences are an occasional consequence of this system due to software limitations, ambient noise, and hardware issues. Any formal questions or concerns about the content, text or information contained within the body of this dictation should be directly addressed to the provider for clarification.
[2024-08-07 08:56] LABS: Basophils # (Auto) 0.1 Thou/mm3 (0.0-0.2); Basophils % (Auto) 0 % (0-2.5); Eosinophils # (Auto) 0.4 Thou/mm3 (0.0-0.5); Eosinophils % (Auto) 3 % (0-10); Hematocrit 20.3 % (41.0-53.0); Immature Granulocytes % (Auto) 1 % (0-0); Immature Granulocytes Auto 0.11 Thou/mm3 (0.00-0.00); Lymphocytes # (Auto) 1.8 Thou/mm3 (1.0-4.8); Lymphocytes % (Auto) 13 % (10-50); Mean Corpuscular HGB Conc 32.5 g/dl (31.0-37.0); Mean Corpuscular Hemoglobin 26.3 pg (25.0-35.0); Mean Corpuscular Volume 81 fL (80-100); Monocytes # (Auto) 1.2 Thou/mm3 (0.0-0.8); Monocytes % (Auto) 9 % (0-12); Neutrophils # (Auto) 9.9 Thou/mm3 (1.8-7.7); Neutrophils % (Auto) 74 % (37-80); Nucleated Red Blood Cell % 0 /100 WBC (0); Platelet Count 393 Thou/mm3 (140-440); RDW Standard Deviation 53.2 fL (35.1-43.9); Red Blood Count 2.51 Miln/mm3 (4.50-5.90); White Blood Count 13.5 Thou/mm3 (3.8-10.6)
[2024-08-07 09:06] LABS: Hemoglobin 6.6 g/dL (13.5-16.0)
[2024-08-07 09:14] LABS: Alanine Aminotransferase 13 U/L (10-49); Albumin, Serum 3.6 gm/dL (3.4-4.8); Albumin/Globulin Ratio 1.3 (1.2-2.2); Alkaline Phosphatase 160 U/L (46-116); Anion Gap 7 (7-16); Aspartate Amino Transferase 10 U/L (0-34); BUN/Creatinine Ratio 20 Ratio (12-20); Bilirubin,Total 0.2 mg/dL (0.3-1.2); Blood Urea Nitrogen 47 mg/dL (9-23); Calcium 9.7 mg/dL (8.3-10.6); Carbon Dioxide 26.2 mMol/L (20.0-31.0); Chloride 102 mMol/L (98-107); Creatinine (Component) 2.4 mg/dL (0.6-1.3); Globulin 2.7 gm/dL (2.3-3.5); Glucose 144 mg/dL (74-106); Osmolality,Calculated 285 (275-295); Sodium 135 mMol/L (136-145); Total Protein 6.3 gm/dL (5.7-8.2); eGFR 27 See Note
== END 2024-08-07 23:59 | disposition home or self-care (01) ==
LOC: SCTC 08:04
PROVIDERS: Internal Medicine Hematology & Oncology; PCP Internal Medicine; Referring Provider Internal Medicine; Visit Provider Radiology Therapeutic Radiology
DX: Z51.11 Encounter for antineoplastic chemotherapy (principal); C44.42 Squamous cell carcinoma of skin of scalp and neck; D64.9 Anemia, unspecified
CPT/HCPCS: 36430; 80053; 85025; 86850; 86900; 86901; 86923; 96413; 99213; J7050; J9119; P9016; A9270; G0463

== ENCOUNTER → 2024-08-09 | Outpatient (CLI) | payer OTHER, SELFPAY | END | disposition home or self-care (01) | LOC: SWHD 12:30 | PROVIDERS: PCP Internal Medicine; Referring Provider Internal Medicine; Visit Provider Student in an Organized Health Care Education/Training Program | DX: S01.90XA Unspecified open wound of unspecified part of head, initial encounter (principal); S01.402A Unspecified open wound of left cheek and temporomandibular area, initial encounter; S21.109A Unspecified open wound of unspecified front wall of thorax without penetration into thoracic cavity, initial encounter; X58.XXXA Exposure to other specified factors, initial encounter; D48.5 Neoplasm of uncertain behavior of skin; E11.69 Type 2 diabetes mellitus with other specified complication; N18.4 Chronic kidney disease, stage 4 (severe); C76.0 Malignant neoplasm of head, face and neck; C49.0 Malignant neoplasm of connective and soft tissue of head, face and neck | CPT/HCPCS: 17250; A9270 ==

== ENCOUNTER → 2024-08-12 | Outpatient (CLI) | payer OTHER, SELFPAY ==
[2024-08-12 11:46] LABS: Alanine Aminotransferase 10 U/L (10-49); Albumin, Serum 3.9 gm/dL (3.4-4.8); Albumin/Globulin Ratio 1.3 (1.2-2.2); Alkaline Phosphatase 149 U/L (46-116); Anion Gap 10 (7-16); Aspartate Amino Transferase < 10 U/L (0-34); BUN/Creatinine Ratio 25 Ratio (12-20); Bilirubin,Total 0.3 mg/dL (0.3-1.2); Blood Urea Nitrogen 49 mg/dL (9-23); Calcium 9.9 mg/dL (8.3-10.6); Chloride 103 mMol/L (98-107); Free T4 (Free Thyroxine) 0.72 ng/dL (0.89-1.76); Globulin 2.9 gm/dL (2.3-3.5); Glucose 124 mg/dL (74-106); Osmolality,Calculated 289 (275-295); Potassium 4.6 mMol/L (3.4-5.1); Sodium 138 mMol/L (136-145); Thyroid Stimulating Hormone 2.87 uIU/mL (0.55-4.78); Total Protein 6.8 gm/dL (5.7-8.2); eGFR 34 See Note
[2024-08-12 11:47] LABS: Basophils # (Auto) 0.1 Thou/mm3 (0.0-0.2); Basophils % (Auto) 1 % (0-2.5); Eosinophils # (Auto) 0.3 Thou/mm3 (0.0-0.5); Eosinophils % (Auto) 3 % (0-10); Hematocrit 31.2 % (41.0-53.0); Hemoglobin 9.9 g/dL (13.5-16.0); Immature Granulocytes % (Auto) 1 % (0-0); Immature Granulocytes Auto 0.07 Thou/mm3 (0.00-0.00); Lymphocytes # (Auto) 1.8 Thou/mm3 (1.0-4.8); Lymphocytes % (Auto) 14 % (10-50); Mean Corpuscular HGB Conc 31.7 g/dl (31.0-37.0); Mean Corpuscular Hemoglobin 26.9 pg (25.0-35.0); Mean Corpuscular Volume 85 fL (80-100); Monocytes # (Auto) 1.1 Thou/mm3 (0.0-0.8); Monocytes % (Auto) 8 % (0-12); Neutrophils # (Auto) 9.7 Thou/mm3 (1.8-7.7); Neutrophils % (Auto) 75 % (37-80); Nucleated Red Blood Cell % 0 /100 WBC (0); Platelet Count 359 Thou/mm3 (140-440); RDW Standard Deviation 54.2 fL (35.1-43.9); Red Blood Count 3.68 Miln/mm3 (4.50-5.90)
[2024-08-26 07:25] LABS: T3,Total* 65 ng/dL (76-181)
[2024-08-26 07:26] LABS: Cortisol,total,LC/MS/MS* 17.4 mcg/dL
== END | disposition home or self-care (01) ==
LOC: SCTO 10:14
PROVIDERS: PCP Internal Medicine; Referring Provider Internal Medicine Hematology & Oncology; Visit Provider Internal Medicine Hematology & Oncology
DX: C44.90 Unspecified malignant neoplasm of skin, unspecified (principal)
CPT/HCPCS: 36415; 80053; 82533; 84439; 84443; 84480; 85025

== ENCOUNTER → 2024-08-14 | Outpatient (CLI) | payer OTHER, SELFPAY | END | disposition home or self-care (01) | LOC: SWHD 12:40 | PROVIDERS: PCP Internal Medicine; Referring Provider Internal Medicine; Visit Provider Surgery | DX: S01.402A Unspecified open wound of left cheek and temporomandibular area, initial encounter (principal); S21.109A Unspecified open wound of unspecified front wall of thorax without penetration into thoracic cavity, initial encounter; S01.90XA Unspecified open wound of unspecified part of head, initial encounter; X58.XXXA Exposure to other specified factors, initial encounter; D48.5 Neoplasm of uncertain behavior of skin; E11.69 Type 2 diabetes mellitus with other specified complication; N18.4 Chronic kidney disease, stage 4 (severe); Z79.84 Long term (current) use of oral hypoglycemic drugs | CPT/HCPCS: 97597; A9270 ==

== ENCOUNTER → 2024-08-16 | Outpatient (CLI) | payer OTHER, SELFPAY | END | disposition home or self-care (01) | LOC: SWHD 12:49 | PROVIDERS: PCP Internal Medicine; Referring Provider Internal Medicine; Visit Provider Surgery | DX: S01.402A Unspecified open wound of left cheek and temporomandibular area, initial encounter (principal); S21.109A Unspecified open wound of unspecified front wall of thorax without penetration into thoracic cavity, initial encounter; S01.90XA Unspecified open wound of unspecified part of head, initial encounter; X58.XXXA Exposure to other specified factors, initial encounter; D48.5 Neoplasm of uncertain behavior of skin; E11.69 Type 2 diabetes mellitus with other specified complication; N18.4 Chronic kidney disease, stage 4 (severe); Z79.84 Long term (current) use of oral hypoglycemic drugs; D64.9 Anemia, unspecified; C76.0 Malignant neoplasm of head, face and neck; C49.0 Malignant neoplasm of connective and soft tissue of head, face and neck | CPT/HCPCS: 99214; A9270; G0463 ==

== ENCOUNTER → 2024-08-19 | Outpatient (CLI) | payer OTHER, SELFPAY | END | disposition home or self-care (01) | LOC: SWHD 12:36 | PROVIDERS: PCP Internal Medicine; Referring Provider Internal Medicine; Visit Provider Student in an Organized Health Care Education/Training Program | DX: S01.402A Unspecified open wound of left cheek and temporomandibular area, initial encounter (principal); S21.109A Unspecified open wound of unspecified front wall of thorax without penetration into thoracic cavity, initial encounter; S01.90XA Unspecified open wound of unspecified part of head, initial encounter; X58.XXXA Exposure to other specified factors, initial encounter; D48.5 Neoplasm of uncertain behavior of skin; E11.69 Type 2 diabetes mellitus with other specified complication; N18.4 Chronic kidney disease, stage 4 (severe); D64.9 Anemia, unspecified; Z79.84 Long term (current) use of oral hypoglycemic drugs; C76.0 Malignant neoplasm of head, face and neck; C49.0 Malignant neoplasm of connective and soft tissue of head, face and neck | CPT/HCPCS: 99214; A9270; G0463 ==

== ENCOUNTER → 2024-08-19 | Outpatient (CLI) | payer OTHER, SELFPAY ==
[2024-08-19 10:28] LABS: Basophils # (Auto) 0.1 Thou/mm3 (0.0-0.2); Basophils % (Auto) 0 % (0-2.5); Eosinophils # (Auto) 0.3 Thou/mm3 (0.0-0.5); Eosinophils % (Auto) 2 % (0-10); Hematocrit 28.4 % (41.0-53.0); Hemoglobin 9.1 g/dL (13.5-16.0); Immature Granulocytes % (Auto) 0 % (0-0); Immature Granulocytes Auto 0.06 Thou/mm3 (0.00-0.00); Lymphocytes # (Auto) 1.8 Thou/mm3 (1.0-4.8); Lymphocytes % (Auto) 13 % (10-50); Mean Corpuscular Hemoglobin 26.7 pg (25.0-35.0); Mean Corpuscular Volume 83 fL (80-100); Monocytes # (Auto) 1.2 Thou/mm3 (0.0-0.8); Monocytes % (Auto) 9 % (0-12); Neutrophils # (Auto) 10.2 Thou/mm3 (1.8-7.7); Neutrophils % (Auto) 75 % (37-80); Nucleated Red Blood Cell % 0 /100 WBC (0); Platelet Count 328 Thou/mm3 (140-440); RDW Standard Deviation 52.2 fL (35.1-43.9); Red Blood Count 3.41 Miln/mm3 (4.50-5.90); White Blood Count 13.7 Thou/mm3 (3.8-10.6)
[2024-08-19 11:07] LABS: Alanine Aminotransferase 12 U/L (10-49); Albumin, Serum 3.9 gm/dL (3.4-4.8); Albumin/Globulin Ratio 1.3 (1.2-2.2); Alkaline Phosphatase 143 U/L (46-116); Anion Gap 10 (7-16); Aspartate Amino Transferase 12 U/L (0-34); BUN/Creatinine Ratio 19 Ratio (12-20); Bilirubin,Total 0.4 mg/dL (0.3-1.2); Blood Urea Nitrogen 40 mg/dL (9-23); Calcium (Corrected) 10.1 mg/dL (8.5-10.1); Carbon Dioxide 26.2 mMol/L (20.0-31.0); Chloride 100 mMol/L (98-107); Creatinine (Component) 2.1 mg/dL (0.6-1.3); Glucose 178 mg/dL (74-106); Osmolality,Calculated 285 (275-295); Potassium 4.5 mMol/L (3.4-5.1); Sodium 136 mMol/L (136-145); Thyroid Stimulating Hormone 2.48 uIU/mL (0.55-4.78); Total Protein 6.9 gm/dL (5.7-8.2); eGFR 32 See Note
== END | disposition home or self-care (01) ==
LOC: SCTO 09:21
PROVIDERS: PCP Internal Medicine; Referring Provider Internal Medicine Hematology & Oncology; Visit Provider Internal Medicine Hematology & Oncology
DX: E03.2 Hypothyroidism due to medicaments and other exogenous substances (principal); C44.90 Unspecified malignant neoplasm of skin, unspecified
CPT/HCPCS: 36415; 80053; 84443; 85025

== ENCOUNTER → 2024-08-23 | Outpatient (CLI) | payer OTHER, SELFPAY | END | disposition home or self-care (01) | LOC: SWHD 12:40 | PROVIDERS: PCP Internal Medicine; Referring Provider Internal Medicine; Visit Provider Student in an Organized Health Care Education/Training Program | DX: S01.402A Unspecified open wound of left cheek and temporomandibular area, initial encounter (principal); S21.109A Unspecified open wound of unspecified front wall of thorax without penetration into thoracic cavity, initial encounter; S01.90XA Unspecified open wound of unspecified part of head, initial encounter; X58.XXXA Exposure to other specified factors, initial encounter; D48.5 Neoplasm of uncertain behavior of skin; E11.69 Type 2 diabetes mellitus with other specified complication; N18.4 Chronic kidney disease, stage 4 (severe); Z79.84 Long term (current) use of oral hypoglycemic drugs; D64.9 Anemia, unspecified; C76.0 Malignant neoplasm of head, face and neck; C49.0 Malignant neoplasm of connective and soft tissue of head, face and neck | CPT/HCPCS: 11106; A9270 ==

== ENCOUNTER → 2024-08-26 | Outpatient (CLI) | payer OTHER, SELFPAY ==
[2024-08-26 10:19] LABS: Alanine Aminotransferase 28 U/L (10-49); Albumin, Serum 4.1 gm/dL (3.4-4.8); Albumin/Globulin Ratio 1.5 (1.2-2.2); Alkaline Phosphatase 147 U/L (46-116); Anion Gap 10 (7-16); Aspartate Amino Transferase 23 U/L (0-34); BUN/Creatinine Ratio 13 Ratio (12-20); Bilirubin,Total 0.3 mg/dL (0.3-1.2); Blood Urea Nitrogen 30 mg/dL (9-23); Calcium 10.2 mg/dL (8.3-10.6); Calcium (Corrected) 10.2 mg/dL (8.5-10.1); Carbon Dioxide 25.4 mMol/L (20.0-31.0); Chloride 99 mMol/L (98-107); Creatinine (Component) 2.4 mg/dL (0.6-1.3); Globulin 2.8 gm/dL (2.3-3.5); Glucose 151 mg/dL (74-106); Osmolality,Calculated 277 (275-295); Potassium 4.4 mMol/L (3.4-5.1); Sodium 134 mMol/L (136-145); Thyroid Stimulating Hormone 2.67 uIU/mL (0.55-4.78); Total Protein 6.9 gm/dL (5.7-8.2); eGFR 27 See Note
[2024-08-26 10:22] LABS: Basophils # (Auto) 0.1 Thou/mm3 (0.0-0.2); Basophils % (Auto) 0 % (0-2.5); Eosinophils # (Auto) 0.4 Thou/mm3 (0.0-0.5); Eosinophils % (Auto) 2 % (0-10); Hematocrit 26.3 % (41.0-53.0); Immature Granulocytes % (Auto) 1 % (0-0); Immature Granulocytes Auto 0.09 Thou/mm3 (0.00-0.00); Lymphocytes # (Auto) 1.4 Thou/mm3 (1.0-4.8); Lymphocytes % (Auto) 9 % (10-50); Mean Corpuscular HGB Conc 32.7 g/dl (31.0-37.0); Mean Corpuscular Hemoglobin 26.5 pg (25.0-35.0); Mean Corpuscular Volume 81 fL (80-100); Monocytes # (Auto) 1.3 Thou/mm3 (0.0-0.8); Monocytes % (Auto) 8 % (0-12); Neutrophils # (Auto) 13.6 Thou/mm3 (1.8-7.7); Neutrophils % (Auto) 81 % (37-80); Nucleated Red Blood Cell % 0 /100 WBC (0); Platelet Count 407 Thou/mm3 (140-440); RDW Standard Deviation 51.2 fL (35.1-43.9); Red Blood Count 3.24 Miln/mm3 (4.50-5.90); White Blood Count 16.8 Thou/mm3 (3.8-10.6)
[2024-08-26 10:26] LABS: Hemoglobin 8.6 g/dL (13.5-16.0)
== END | disposition home or self-care (01) ==
LOC: SCTO 09:05
PROVIDERS: PCP Internal Medicine; Referring Provider Internal Medicine Hematology & Oncology; Visit Provider Internal Medicine Hematology & Oncology
DX: C44.90 Unspecified malignant neoplasm of skin, unspecified (principal); E03.2 Hypothyroidism due to medicaments and other exogenous substances
CPT/HCPCS: 36415; 80053; 84443; 85025

== ENCOUNTER → 2024-08-28 | Outpatient (CLI) | payer OTHER, SELFPAY | END | disposition home or self-care (01) | LOC: SWHD 12:53 | PROVIDERS: PCP Internal Medicine; Referring Provider Internal Medicine; Visit Provider Student in an Organized Health Care Education/Training Program | DX: S01.402A Unspecified open wound of left cheek and temporomandibular area, initial encounter (principal); S21.109A Unspecified open wound of unspecified front wall of thorax without penetration into thoracic cavity, initial encounter; S01.90XA Unspecified open wound of unspecified part of head, initial encounter; X58.XXXA Exposure to other specified factors, initial encounter; D48.5 Neoplasm of uncertain behavior of skin; E11.69 Type 2 diabetes mellitus with other specified complication; N18.4 Chronic kidney disease, stage 4 (severe); Z79.84 Long term (current) use of oral hypoglycemic drugs; D64.9 Anemia, unspecified; C76.0 Malignant neoplasm of head, face and neck; C49.0 Malignant neoplasm of connective and soft tissue of head, face and neck | CPT/HCPCS: 11042; 11045; A9270 ==

== ENCOUNTER → 2024-08-30 | Outpatient (CLI) | payer OTHER, SELFPAY | END | disposition home or self-care (01) | LOC: SWHD 12:33 | PROVIDERS: PCP Internal Medicine; Referring Provider Internal Medicine; Visit Provider Surgery | DX: S21.109A Unspecified open wound of unspecified front wall of thorax without penetration into thoracic cavity, initial encounter (principal); S01.90XA Unspecified open wound of unspecified part of head, initial encounter; X58.XXXA Exposure to other specified factors, initial encounter; D48.5 Neoplasm of uncertain behavior of skin; E11.69 Type 2 diabetes mellitus with other specified complication; N18.4 Chronic kidney disease, stage 4 (severe); Z79.84 Long term (current) use of oral hypoglycemic drugs; D64.9 Anemia, unspecified; C76.0 Malignant neoplasm of head, face and neck; C49.0 Malignant neoplasm of connective and soft tissue of head, face and neck | CPT/HCPCS: 99214; A9270; G0463 ==

== ENCOUNTER 2024-09-03 08:03 | Outpatient (RCR) | payer OTHER, SELFPAY ==
[2024-09-03 08:48] LABS: Basophils % (Auto) 0 % (0-2.5); Eosinophils # (Auto) 0.4 Thou/mm3 (0.0-0.5); Eosinophils % (Auto) 2 % (0-10); Hematocrit 21.4 % (41.0-53.0); Immature Granulocytes % (Auto) 1 % (0-0); Immature Granulocytes Auto 0.13 Thou/mm3 (0.00-0.00); Lymphocytes # (Auto) 1.9 Thou/mm3 (1.0-4.8); Lymphocytes % (Auto) 10 % (10-50); Mean Corpuscular HGB Conc 32.2 g/dl (31.0-37.0); Mean Corpuscular Hemoglobin 26.4 pg (25.0-35.0); Mean Corpuscular Volume 82 fL (80-100); Monocytes # (Auto) 1.6 Thou/mm3 (0.0-0.8); Monocytes % (Auto) 8 % (0-12); Neutrophils # (Auto) 15.4 Thou/mm3 (1.8-7.7); Neutrophils % (Auto) 79 % (37-80); Nucleated Red Blood Cell % 0 /100 WBC (0); Platelet Count 437 Thou/mm3 (140-440); RDW Standard Deviation 50.3 fL (35.1-43.9); Red Blood Count 2.61 Miln/mm3 (4.50-5.90); White Blood Count 19.5 Thou/mm3 (3.8-10.6)
[2024-09-03 08:51] LABS: Hemoglobin 6.9 g/dL (13.5-16.0)
[2024-09-03 08:59] LABS: Alanine Aminotransferase 32 U/L (10-49); Albumin, Serum 3.7 gm/dL (3.4-4.8); Albumin/Globulin Ratio 1.4 (1.2-2.2); Alkaline Phosphatase 167 U/L (46-116); Anion Gap 10 (7-16); Aspartate Amino Transferase 27 U/L (0-34); BUN/Creatinine Ratio 15 Ratio (12-20); Bilirubin,Total 0.3 mg/dL (0.3-1.2); Blood Urea Nitrogen 31 mg/dL (9-23); Calcium 9.5 mg/dL (8.3-10.6); Calcium (Corrected) 9.7 mg/dL (8.5-10.1); Carbon Dioxide 27.1 mMol/L (20.0-31.0); Chloride 100 mMol/L (98-107); Creatinine (Component) 2.1 mg/dL (0.6-1.3); Globulin 2.7 gm/dL (2.3-3.5); Glucose 135 mg/dL (74-106); Osmolality,Calculated 282 (275-295); Potassium 4.6 mMol/L (3.4-5.1); Sodium 137 mMol/L (136-145); Thyroid Stimulating Hormone 2.48 uIU/mL (0.55-4.78); Total Protein 6.4 gm/dL (5.7-8.2); eGFR 32 See Note
== END 2024-09-07 23:59 | disposition home or self-care (01) ==
LOC: SCTC 08:03
PROVIDERS: Internal Medicine Hematology & Oncology; PCP Internal Medicine; Referring Provider Internal Medicine; Visit Provider Radiology Therapeutic Radiology
DX: Z51.11 Encounter for antineoplastic chemotherapy (principal); C44.42 Squamous cell carcinoma of skin of scalp and neck; D64.9 Anemia, unspecified
CPT/HCPCS: 36415; 36430; 80053; 84443; 85025; 86850; 86900; 86901; 86923; 96413; J7050; J9119; P9016

== ENCOUNTER → 2024-09-04 | Outpatient (CLI) | payer OTHER, SELFPAY | END | disposition home or self-care (01) | LOC: SWHD 12:48 | PROVIDERS: PCP Internal Medicine; Referring Provider Internal Medicine; Visit Provider Student in an Organized Health Care Education/Training Program | DX: S31.109A Unspecified open wound of abdominal wall, unspecified quadrant without penetration into peritoneal cavity, initial encounter (principal); S01.90XA Unspecified open wound of unspecified part of head, initial encounter; X58.XXXA Exposure to other specified factors, initial encounter; D48.5 Neoplasm of uncertain behavior of skin; E11.69 Type 2 diabetes mellitus with other specified complication; N18.4 Chronic kidney disease, stage 4 (severe); Z79.84 Long term (current) use of oral hypoglycemic drugs; D64.9 Anemia, unspecified; C76.0 Malignant neoplasm of head, face and neck; C49.0 Malignant neoplasm of connective and soft tissue of head, face and neck | CPT/HCPCS: 97597; 97598 ×2; A9270 ==

== ENCOUNTER → 2024-09-06 | Outpatient (CLI) | payer OTHER, SELFPAY | END | disposition home or self-care (01) | LOC: SWHD 12:37 | PROVIDERS: PCP Internal Medicine; Referring Provider Internal Medicine; Visit Provider Physician Assistant | DX: S31.109A Unspecified open wound of abdominal wall, unspecified quadrant without penetration into peritoneal cavity, initial encounter (principal); S01.90XA Unspecified open wound of unspecified part of head, initial encounter; X58.XXXA Exposure to other specified factors, initial encounter; D48.5 Neoplasm of uncertain behavior of skin; E11.69 Type 2 diabetes mellitus with other specified complication; N18.4 Chronic kidney disease, stage 4 (severe); Z79.84 Long term (current) use of oral hypoglycemic drugs; D64.9 Anemia, unspecified; C76.0 Malignant neoplasm of head, face and neck; C49.0 Malignant neoplasm of connective and soft tissue of head, face and neck | CPT/HCPCS: 99213; A9270; G0463 ==

== ENCOUNTER → 2024-09-09 | Outpatient (CLI) | payer OTHER, SELFPAY ==
[2024-09-09 14:55] LABS: Basophils % (Auto) 0 % (0-2.5); Eosinophils # (Auto) 0.2 Thou/mm3 (0.0-0.5); Eosinophils % (Auto) 1 % (0-10); Hematocrit 26.3 % (41.0-53.0); Immature Granulocytes % (Auto) 1 % (0-0); Immature Granulocytes Auto 0.12 Thou/mm3 (0.00-0.00); Lymphocytes # (Auto) 1.3 Thou/mm3 (1.0-4.8); Lymphocytes % (Auto) 7 % (10-50); Mean Corpuscular HGB Conc 33.1 g/dl (31.0-37.0); Mean Corpuscular Hemoglobin 26.9 pg (25.0-35.0); Mean Corpuscular Volume 81 fL (80-100); Monocytes # (Auto) 1.1 Thou/mm3 (0.0-0.8); Monocytes % (Auto) 6 % (0-12); Neutrophils # (Auto) 15.4 Thou/mm3 (1.8-7.7); Neutrophils % (Auto) 85 % (37-80); Nucleated Red Blood Cell % 0 /100 WBC (0); Platelet Count 429 Thou/mm3 (140-440); RDW Standard Deviation 46.1 fL (35.1-43.9); Red Blood Count 3.24 Miln/mm3 (4.50-5.90); White Blood Count 18.1 Thou/mm3 (3.8-10.6)
[2024-09-09 14:59] LABS: Alanine Aminotransferase 33 U/L (10-49); Albumin, Serum 3.5 gm/dL (3.4-4.8); Albumin/Globulin Ratio 1.3 (1.2-2.2); Alkaline Phosphatase 158 U/L (46-116); Anion Gap 10 (7-16); Aspartate Amino Transferase 23 U/L (0-34); BUN/Creatinine Ratio 20 Ratio (12-20); Bilirubin,Total 0.3 mg/dL (0.3-1.2); Blood Urea Nitrogen 40 mg/dL (9-23); Calcium 9.3 mg/dL (8.3-10.6); Calcium (Corrected) 9.7 mg/dL (8.5-10.1); Carbon Dioxide 25.5 mMol/L (20.0-31.0); Chloride 101 mMol/L (98-107); Globulin 2.6 gm/dL (2.3-3.5); Glucose 119 mg/dL (74-106); Osmolality,Calculated 282 (275-295); Potassium 4.5 mMol/L (3.4-5.1); Sodium 136 mMol/L (136-145); Thyroid Stimulating Hormone 2.27 uIU/mL (0.55-4.78); Total Protein 6.1 gm/dL (5.7-8.2); eGFR 34 See Note
[2024-09-09 15:04] LABS: Hemoglobin 8.7 g/dL (13.5-16.0)
== END | disposition home or self-care (01) ==
LOC: SCTO 13:49
PROVIDERS: PCP Internal Medicine; Referring Provider Internal Medicine Hematology & Oncology; Visit Provider Internal Medicine Hematology & Oncology
DX: C44.90 Unspecified malignant neoplasm of skin, unspecified (principal)
CPT/HCPCS: 36415; 80053; 84443; 85025

== ENCOUNTER → 2024-09-11 | Outpatient (CLI) | payer OTHER, SELFPAY | END | disposition home or self-care (01) | LOC: SWHD 12:47 | PROVIDERS: PCP Internal Medicine; Referring Provider Internal Medicine; Visit Provider Surgery | DX: S31.109A Unspecified open wound of abdominal wall, unspecified quadrant without penetration into peritoneal cavity, initial encounter (principal); S01.90XA Unspecified open wound of unspecified part of head, initial encounter; X58.XXXA Exposure to other specified factors, initial encounter; D48.5 Neoplasm of uncertain behavior of skin; E11.69 Type 2 diabetes mellitus with other specified complication; N18.4 Chronic kidney disease, stage 4 (severe); Z79.84 Long term (current) use of oral hypoglycemic drugs; C76.0 Malignant neoplasm of head, face and neck; C49.0 Malignant neoplasm of connective and soft tissue of head, face and neck | CPT/HCPCS: 99214; G0463 ==

== ENCOUNTER → 2024-09-13 | Outpatient (CLI) | payer OTHER, SELFPAY | END | disposition home or self-care (01) | LOC: SWHD 12:47 | PROVIDERS: PCP Internal Medicine; Referring Provider Internal Medicine; Visit Provider Student in an Organized Health Care Education/Training Program | DX: S31.109A Unspecified open wound of abdominal wall, unspecified quadrant without penetration into peritoneal cavity, initial encounter (principal); S01.90XA Unspecified open wound of unspecified part of head, initial encounter; X58.XXXA Exposure to other specified factors, initial encounter; D48.5 Neoplasm of uncertain behavior of skin; E11.69 Type 2 diabetes mellitus with other specified complication; N18.4 Chronic kidney disease, stage 4 (severe); D64.9 Anemia, unspecified; C76.0 Malignant neoplasm of head, face and neck; C49.0 Malignant neoplasm of connective and soft tissue of head, face and neck | CPT/HCPCS: 11042 ==

== ENCOUNTER → 2024-09-16 | Outpatient (CLI) | payer OTHER, SELFPAY ==
[2024-09-16 13:52] LABS: Basophils # (Auto) 0.1 Thou/mm3 (0.0-0.2); Basophils % (Auto) 0 % (0-2.5); Eosinophils # (Auto) 0.1 Thou/mm3 (0.0-0.5); Eosinophils % (Auto) 1 % (0-10); Hematocrit 23.8 % (41.0-53.0); Immature Granulocytes % (Auto) 1 % (0-0); Immature Granulocytes Auto 0.12 Thou/mm3 (0.00-0.00); Lymphocytes # (Auto) 1.5 Thou/mm3 (1.0-4.8); Lymphocytes % (Auto) 8 % (10-50); Mean Corpuscular HGB Conc 33.2 g/dl (31.0-37.0); Mean Corpuscular Hemoglobin 26.6 pg (25.0-35.0); Mean Corpuscular Volume 80 fL (80-100); Monocytes # (Auto) 1.3 Thou/mm3 (0.0-0.8); Monocytes % (Auto) 7 % (0-12); Neutrophils # (Auto) 15.8 Thou/mm3 (1.8-7.7); Neutrophils % (Auto) 84 % (37-80); Nucleated Red Blood Cell % 0 /100 WBC (0); Platelet Count 438 Thou/mm3 (140-440); RDW Standard Deviation 45.1 fL (35.1-43.9); Red Blood Count 2.97 Miln/mm3 (4.50-5.90); White Blood Count 18.9 Thou/mm3 (3.8-10.6)
[2024-09-16 13:56] LABS: Alanine Aminotransferase 23 U/L (10-49); Albumin, Serum 3.4 gm/dL (3.4-4.8); Albumin/Globulin Ratio 1.2 (1.2-2.2); Alkaline Phosphatase 151 U/L (46-116); Anion Gap 10 (7-16); BUN/Creatinine Ratio 15 Ratio (12-20); Bilirubin,Total 0.3 mg/dL (0.3-1.2); Blood Urea Nitrogen 29 mg/dL (9-23); Calcium 9.9 mg/dL (8.3-10.6); Calcium (Corrected) 10.4 mg/dL (8.5-10.1); Carbon Dioxide 24.5 mMol/L (20.0-31.0); Chloride 96 mMol/L (98-107); Creatinine (Component) 1.9 mg/dL (0.6-1.3); Globulin 2.8 gm/dL (2.3-3.5); Glucose 111 mg/dL (74-106); Osmolality,Calculated 267 (275-295); Potassium 4.9 mMol/L (3.4-5.1); Sodium 130 mMol/L (136-145); Thyroid Stimulating Hormone 2.32 uIU/mL (0.55-4.78); Total Protein 6.2 gm/dL (5.7-8.2); eGFR 36 See Note
[2024-09-16 14:17] LABS: Hemoglobin 7.9 g/dL (13.5-16.0)
== END | disposition home or self-care (01) ==
LOC: SCTO 12:11
PROVIDERS: PCP Internal Medicine; Referring Provider Internal Medicine Hematology & Oncology; Visit Provider Internal Medicine Hematology & Oncology
DX: C44.90 Unspecified malignant neoplasm of skin, unspecified (principal)
CPT/HCPCS: 36415; 80053; 84443; 85025

== ENCOUNTER → 2024-09-18 | Outpatient (CLI) | payer OTHER, SELFPAY | END | disposition home or self-care (01) | LOC: SWHD 12:26 | PROVIDERS: PCP Internal Medicine; Referring Provider Internal Medicine; Visit Provider Surgery | DX: S31.109A Unspecified open wound of abdominal wall, unspecified quadrant without penetration into peritoneal cavity, initial encounter (principal); S01.90XA Unspecified open wound of unspecified part of head, initial encounter; X58.XXXA Exposure to other specified factors, initial encounter; D48.5 Neoplasm of uncertain behavior of skin; E11.69 Type 2 diabetes mellitus with other specified complication; N18.4 Chronic kidney disease, stage 4 (severe); Z79.84 Long term (current) use of oral hypoglycemic drugs; D64.9 Anemia, unspecified; C76.0 Malignant neoplasm of head, face and neck; C49.0 Malignant neoplasm of connective and soft tissue of head, face and neck | CPT/HCPCS: 99213; A9270; G0463 ==

== ENCOUNTER → 2024-09-20 | Outpatient (CLI) | payer OTHER, SELFPAY | END | disposition home or self-care (01) | LOC: SWHD 12:51 | PROVIDERS: PCP Internal Medicine; Referring Provider Internal Medicine; Visit Provider Surgery | DX: S01.90XA Unspecified open wound of unspecified part of head, initial encounter (principal); X58.XXXA Exposure to other specified factors, initial encounter; D48.5 Neoplasm of uncertain behavior of skin; E11.69 Type 2 diabetes mellitus with other specified complication; N18.4 Chronic kidney disease, stage 4 (severe); Z79.84 Long term (current) use of oral hypoglycemic drugs; D64.9 Anemia, unspecified; C76.0 Malignant neoplasm of head, face and neck; C49.0 Malignant neoplasm of connective and soft tissue of head, face and neck | CPT/HCPCS: 99213; A9270; G0463 ==

== ENCOUNTER → 2024-09-23 | Outpatient (CLI) | payer OTHER, SELFPAY ==
[2024-09-23 11:27] LABS: Basophils # (Auto) 0.1 Thou/mm3 (0.0-0.2); Basophils % (Auto) 0 % (0-2.5); Eosinophils # (Auto) 0.1 Thou/mm3 (0.0-0.5); Eosinophils % (Auto) 0 % (0-10); Hematocrit 30.1 % (41.0-53.0); Hemoglobin 9.9 g/dL (13.5-16.0); Immature Granulocytes % (Auto) 1 % (0-0); Immature Granulocytes Auto 0.16 Thou/mm3 (0.00-0.00); Lymphocytes # (Auto) 1.5 Thou/mm3 (1.0-4.8); Lymphocytes % (Auto) 7 % (10-50); Mean Corpuscular HGB Conc 32.9 g/dl (31.0-37.0); Mean Corpuscular Hemoglobin 27.1 pg (25.0-35.0); Mean Corpuscular Volume 83 fL (80-100); Monocytes # (Auto) 1.5 Thou/mm3 (0.0-0.8); Monocytes % (Auto) 7 % (0-12); Neutrophils # (Auto) 17.2 Thou/mm3 (1.8-7.7); Neutrophils % (Auto) 84 % (37-80); Nucleated Red Blood Cell % 0 /100 WBC (0); Platelet Count 462 Thou/mm3 (140-440); RDW Standard Deviation 45.4 fL (35.1-43.9); Red Blood Count 3.65 Miln/mm3 (4.50-5.90); White Blood Count 20.4 Thou/mm3 (3.8-10.6)
[2024-09-23 11:44] LABS: Anion Gap 9 (7-16); BUN/Creatinine Ratio 12 Ratio (12-20); Bilirubin,Total 0.4 mg/dL (0.3-1.2); Blood Urea Nitrogen 23 mg/dL (9-23); Calcium 10.1 mg/dL (8.3-10.6); Chloride 96 mMol/L (98-107); Creatinine (Component) 1.9 mg/dL (0.6-1.3); Glucose 133 mg/dL (74-106); Osmolality,Calculated 268 (275-295); Potassium 4.3 mMol/L (3.4-5.1); Sodium 131 mMol/L (136-145); eGFR 36 See Note
[2024-09-23 11:45] LABS: Alanine Aminotransferase 13 U/L (10-49); Albumin, Serum 3.8 gm/dL (3.4-4.8); Albumin/Globulin Ratio 1.3 (1.2-2.2); Alkaline Phosphatase 151 U/L (46-116); Aspartate Amino Transferase < 10 U/L (0-34); Calcium (Corrected) 10.3 mg/dL (8.5-10.1); Thyroid Stimulating Hormone 2.64 uIU/mL (0.55-4.78); Total Protein 6.8 gm/dL (5.7-8.2)
== END | disposition home or self-care (01) ==
LOC: SCTO 10:13
PROVIDERS: PCP Internal Medicine; Referring Provider Internal Medicine Hematology & Oncology; Visit Provider Internal Medicine Hematology & Oncology
DX: C44.90 Unspecified malignant neoplasm of skin, unspecified (principal)
CPT/HCPCS: 36415; 80053; 84443; 85025

== ENCOUNTER → 2024-09-25 | Outpatient (CLI) | payer OTHER, SELFPAY | END | disposition home or self-care (01) | LOC: SWHD 12:51 | PROVIDERS: PCP Internal Medicine; Referring Provider Internal Medicine; Visit Provider Student in an Organized Health Care Education/Training Program | DX: S01.90XA Unspecified open wound of unspecified part of head, initial encounter (principal); X58.XXXA Exposure to other specified factors, initial encounter; D48.5 Neoplasm of uncertain behavior of skin; E11.69 Type 2 diabetes mellitus with other specified complication; N18.4 Chronic kidney disease, stage 4 (severe); Z79.84 Long term (current) use of oral hypoglycemic drugs; D64.9 Anemia, unspecified; C76.0 Malignant neoplasm of head, face and neck; C49.0 Malignant neoplasm of connective and soft tissue of head, face and neck | CPT/HCPCS: 11042; 11045; A9270 ==

== ENCOUNTER → 2024-09-27 | Outpatient (CLI) | payer OTHER, SELFPAY | END | disposition home or self-care (01) | LOC: SWHD 12:41 | PROVIDERS: PCP Internal Medicine; Referring Provider Internal Medicine; Visit Provider Surgery | DX: X58.XXXA Exposure to other specified factors, initial encounter (principal); D48.5 Neoplasm of uncertain behavior of skin; E11.69 Type 2 diabetes mellitus with other specified complication; N18.4 Chronic kidney disease, stage 4 (severe); Z79.84 Long term (current) use of oral hypoglycemic drugs; D64.9 Anemia, unspecified; C76.0 Malignant neoplasm of head, face and neck; C49.0 Malignant neoplasm of connective and soft tissue of head, face and neck | CPT/HCPCS: 99213; A9270; G0463 ==

== ENCOUNTER → 2024-09-30 | Outpatient (CLI) | payer OTHER, MEDICAID, SELFPAY ==
[2024-09-30 12:26] LABS: Basophils % (Auto) 0 % (0-2.5); Eosinophils # (Auto) 0.2 Thou/mm3 (0.0-0.5); Eosinophils % (Auto) 1 % (0-10); Hematocrit 24.7 % (41.0-53.0); Immature Granulocytes % (Auto) 1 % (0-0); Immature Granulocytes Auto 0.21 Thou/mm3 (0.00-0.00); Lymphocytes % (Auto) 9 % (10-50); Mean Corpuscular HGB Conc 32.8 g/dl (31.0-37.0); Mean Corpuscular Hemoglobin 27.1 pg (25.0-35.0); Mean Corpuscular Volume 83 fL (80-100); Monocytes # (Auto) 1.6 Thou/mm3 (0.0-0.8); Monocytes % (Auto) 7 % (0-12); Neutrophils # (Auto) 18.8 Thou/mm3 (1.8-7.7); Neutrophils % (Auto) 82 % (37-80); Nucleated Red Blood Cell % 0 /100 WBC (0); Platelet Count 400 Thou/mm3 (140-440); RDW Standard Deviation 46.6 fL (35.1-43.9); Red Blood Count 2.99 Miln/mm3 (4.50-5.90); White Blood Count 22.9 Thou/mm3 (3.8-10.6)
[2024-09-30 12:27] LABS: Hemoglobin 8.1 g/dL (13.5-16.0)
[2024-09-30 12:46] LABS: Alanine Aminotransferase 15 U/L (10-49); Albumin, Serum 3.8 gm/dL (3.4-4.8); Albumin/Globulin Ratio 1.6 (1.2-2.2); Alkaline Phosphatase 147 U/L (46-116); Anion Gap 10 (7-16); Aspartate Amino Transferase 12 U/L (0-34); BUN/Creatinine Ratio 12 Ratio (12-20); Bilirubin,Total 0.5 mg/dL (0.3-1.2); Blood Urea Nitrogen 24 mg/dL (9-23); Calcium 10.4 mg/dL (8.3-10.6); Calcium (Corrected) 10.6 mg/dL (8.5-10.1); Carbon Dioxide 24.9 mMol/L (20.0-31.0); Chloride 95 mMol/L (98-107); Globulin 2.4 gm/dL (2.3-3.5); Glucose 137 mg/dL (74-106); Osmolality,Calculated 266 (275-295); Potassium 4.4 mMol/L (3.4-5.1); Sodium 130 mMol/L (136-145); Thyroid Stimulating Hormone 1.96 uIU/mL (0.55-4.78); Total Protein 6.2 gm/dL (5.7-8.2); eGFR 34 See Note
== END | disposition home or self-care (01) ==
PROVIDERS: PCP Internal Medicine; Referring Provider Internal Medicine Hematology & Oncology; Visit Provider Internal Medicine Hematology & Oncology
DX: C44.90 Unspecified malignant neoplasm of skin, unspecified (principal); E03.9 Hypothyroidism, unspecified
CPT/HCPCS: 36415; 80053; 84443; 85025

== ENCOUNTER 2024-10-01 14:06 | Outpatient (RCR) | payer OTHER, SELFPAY ==
[2024-09-27 19:50] LABS: Abnormal protein band 1 0.3 g/dL (NONE DETECTED); Albumin 2.9 g/dL (3.8-4.8); Alpha-1-Globulin 0.7 g/dL (0.2-0.3); Alpha-2-Globulin 1.1 g/dL (0.5-0.9); Beta-1-Globulin 0.4 g/dL (0.4-0.6); Beta-2-globulin 0.5 g/dL (0.2-0.5); Immunoglobulin A 320 mg/dL (70-320); Immunoglobulin G 1180 mg/dL (600-1540); Kappa Light Chain, Free 62.8 mg/L (3.3-19.4); Lambda Light Chain, Free 52.1 mg/L (5.7-26.3)
[2024-09-30 06:55] LABS: Immunoglobulin M 73 mg/dL (50-300); Kappa/Lambda, Free Ratio 1.21 (0.26-1.65); Protein, total, serum 6.6 g/dL (6.1-8.1)
--- NOTE | 2024-10-02 07:27 | CTCFLWUP_ITS ---
Patient: MOLLY RANDALL : 1950 Page 2 of 4 FOLLOW UP NOTE DATE OF SERVICE: 10/01/2024 NAME: MOLLY RANDALL ACCOUNT: [id number] : 1950 AGE: 74 INTERVAL HISTORY: Mr. Antony oLu, a patient with scalp cancer, presents for follow-up after starting treatment with cemiplimab in May 2024. The patient reports feeling well and is happy with his progress, stating that he believes the tumor is decreasing in size. He mentions eating very well and appears to be in better overall health compared to his initial presentation. His wound do not have bad odor. ONCOLOGY HISTORY:?[facility] Hx? 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 Patient also diagnosed with melanoma in a March 2024 and was advised to follow-up with oncology. Patient was treated with radiation in the past for squamous cancer. Patient now have unhealing wounds. 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 amlodipine - 10 mg 1 tab Daily 2. Colace - 100 mg 1 Capsule Daily 3. furosemide - 40 mg 1 tab Daily 4. glimepiride - 4 mg Daily 5. lovastatin - 40 mg Twice a Day 6. oxybutynin chloride - 5 mg 1 tab In the evening 7. Pyridium - 100 mg 1 tab Twice a Day 8. sertraline - 50 mg 1 tab In the evening 9. tamsulosin - 0.4 mg 1 Capsule In the evening 10. traZODone - 50 mg 1 tab In the evening 11. Trulicity - 0.75 mg/0.5 mL 1 Shot Weekly?[place]ra Meds? Medications Last Reconciled by Mayela Trimble MA on 10/01/2024 ALLERGIES: No Known Drug Allergies REVIEW OF SYSTEMS: A complete 14-point review of systems was performed and is negative except as noted in interval history. PHYSICAL EXAMINATION:?[facility] PE? VITAL SIGNS: Temperature?100.7, B/P?110/68, Oxygen?Saturation?97% Weight?127?lbs (Change?since?09/24/24:?4?lbs) PAIN: 0 - No pain ECOG Performance Status: 2 - Symptomatic; ambulatory; capable of self-care; >50% of waking hrs. not in bed GENERAL APPEARANCE: Appears well, in no apparent distress, appropriately interactive. HEENT: Normocephalic, no temporal wasting, normal conjunctiva, no scleral icterus, normal hearing, lips without lesions, neck normal range of motion. CARDIOVASCULAR: Not assessed. PULMONARY: Normal respiratory effort, no respiratory distress or use of accessory muscles, speaking in full sentences, no tachypnea. EXTREMITIES: No pedal edema or cyanosis. SKIN: Normal skin appearance. NEUROLOGIC: Alert and oriented x4. PSHYCHIATRIC: Appropriate affect, mood normal, behavior normal, intact thought and speech. LABORATORY DATA: I have personally reviewed and interpreted each of the patient?s relevant lab tests, abnormal findings are below: Date 09/23/24 09/30/24 ??WHITE?BLOOD?COUNT?(Thou/mm3) 20.4?H 22.9?H ??RED?BLOOD?COUNT?(Miln/mm3) 3.65?L 2.99?L ??HEMOGLOBIN?(gm/dl) 9.9?L 8.1?L ??HEMATOCRIT?(%) 30.1?L 24.7?L ??PLATELET?COUNT?(Thou/mm3) 462?H 400 ??NEUTROPHILS?%,?AUTO?(%) 84?H 82?H ??LYMPH?%,?AUTO?(%) 7?L 9?L ??NEUTROPHILS,?AUTO?(Thou/mm3) 17.2?H 18.8?H ??GLUCOSE,RANDOM?(mg/dL) 133?H 137?H ??BLOOD?UREA?NITROGEN?(mg/dL) 23 24?H ??CREATININE?(mg/dL) 1.90?H 2.00?H ??SODIUM?(mmol/L) 131?L 130?L ??POTASSIUM?(mmol/L) 4.3 4.4 ??CHLORIDE?(mmol/L) 96?L 95?L ??CrCl?(CandG)?(ml/min) 28.41 25.18 ??AST/SGOT?(Unit/L) <?10 12 ??ALT/SGPT?(Unit/L) 13 15 ??ALKALINE?PHOSPHATASE?(Unit/L) 151?H 147?H ??BILIRUBIN,?TOTAL?(mg/dL) 0.4 0.5 ??PROTEIN?TOTAL?(gm/dl) 6.8 6.2 ??ALBUMIN,?SERUM?(gm/dl) 3.8 3.8 ??GLOBULIN?(gm/dl) 3.0 2.4 ??ALBUMIN/GLOBULIN?RATIO 1.3 1.6 ??CALCIUM,?SERUM?(mg/dL) 10.1 10.4 ??CALCIUM?SERUM?(CORRECTED)?(mg/dL) 10.3?H 10.6?H ASSESSMENT/PLAN:?Anthony Smith Assessment/Plan? 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 Scalp Cancer Assessment: Patient started on cemiplimab in May 2024 for scalp cancer. Recent PET-CT scan shows multiple concerning lesions: 1. Hypermetabolic left frontal scalp lesion (9.8 x 2 cm) 2. Two lesions on left ear (8.5 x 4.8 cm and 16 x 6 mm) 3. Two liver spots (25 mm and 22 mm) 4. Sternum lesion (12 x 4 mm) Patient reports subjective improvement, stating the tumor is decreasing in size. However, the left frontal scalp lesion is concerning for potential intracranial involvement. Plan: - Continue cemiplimab immunotherapy - Monitor thyroid function due to immunotherapy Ordered PET scan Anemia Improved and stable Plan: - Continue to monitor hemoglobin levels - Assess need for further transfusions as needed Bone Health Concerns Assessment: Patient has bone-related issues, possibly related to cancer metastases or treatment effects. Consideration for medication to decrease calcium levels, pending dental clearance. Plan: - Refer patient to dentist for clearance - Once dental clearance obtained, consider initiating medication to lower calcium levels (pending insurance approval) - Advise patient to increase water intake ORDERS: Order # Description [id number] Follow Up Appointment [id number] CBC + Comprehensive Metabolic Panel [id number] Lab Appointment [id number] Bone Scan, Whole body [id number] Serum Protein Electrophoresis + Serum Immunofixation Electrophoresis + Beta-2 Microglobulin + Quant Immunoglobulins + Free kappa and lambda light chains plus ratio, quantitative RETURN TO CLINIC: BILLING AND COMPLIANCE: I reviewed external records from providers outside my specialty as summarized above. I spent a total of 50 minutes on this patient?s care on the day of their visit excluding time spent related to any billed procedures. This time includes time spent with the patient as well as time spent documenting in the medical record, reviewing patients records and tests, obtaining history, placing orders, communicating with other healthcare professionals, counseling the patient, family or caregiver, and/or care coordination for the diagnoses above. Electronically Signed by: Lloyd Smith MD T: 7:25 AM CC: William?Hermelinda?, Rodger?Rosa? PCP: Zaid Sanchez Referring: Zaid Sanchez This document was completed utilizing speech recognition software. Grammatical errors, random word insertions, pronoun errors, and incomplete sentences are an occasional consequence of this system due to software limitations, ambient noise, and hardware issues. Any formal questions or concerns about the content, text or information contained within the body of this dictation should be directly addressed to the provider for clarification.
== END 2024-10-07 23:59 | disposition home or self-care (01) ==
LOC: SCTC 14:06
PROVIDERS: PCP Internal Medicine; Referring Provider Internal Medicine; Visit Provider Internal Medicine Hematology & Oncology
DX: Z51.11 Encounter for antineoplastic chemotherapy (principal); C44.42 Squamous cell carcinoma of skin of scalp and neck; D64.9 Anemia, unspecified
CPT/HCPCS: 36430; 82232; 82784; 83521; 84155; 84165; 86334; 86850; 86900; 86901; 86923; 96413; 99212; J7050; J9119; P9016; G0463

== ENCOUNTER → 2024-10-02 | Outpatient (CLI) | payer OTHER, MEDICAID, SELFPAY | END | disposition home or self-care (01) | LOC: SWHD 12:43 | PROVIDERS: PCP Internal Medicine; Referring Provider Internal Medicine; Visit Provider Student in an Organized Health Care Education/Training Program | DX: S01.90XA Unspecified open wound of unspecified part of head, initial encounter (principal); X58.XXXA Exposure to other specified factors, initial encounter; D48.5 Neoplasm of uncertain behavior of skin; E11.69 Type 2 diabetes mellitus with other specified complication; N18.4 Chronic kidney disease, stage 4 (severe); Z79.84 Long term (current) use of oral hypoglycemic drugs; D64.9 Anemia, unspecified; C76.0 Malignant neoplasm of head, face and neck; C49.0 Malignant neoplasm of connective and soft tissue of head, face and neck | CPT/HCPCS: 97597; 97598 ×8; A9270 ==

== ENCOUNTER → 2024-10-02 | Outpatient (CLI) | payer OTHER, MEDICAID, SELFPAY | END | disposition home or self-care (01) | LOC: SLDO 14:17 | PROVIDERS: Referring Provider Student in an Organized Health Care Education/Training Program; Visit Provider Student in an Organized Health Care Education/Training Program | DX: E11.622 Type 2 diabetes mellitus with other skin ulcer (principal); C44.42 Squamous cell carcinoma of skin of scalp and neck | CPT/HCPCS: 87070; 87075; 87077; 87186; 87205 ==

== ENCOUNTER → 2024-10-04 | Outpatient (CLI) | payer OTHER, MEDICAID, SELFPAY | END | disposition home or self-care (01) | LOC: SWHD 12:38 | PROVIDERS: PCP Internal Medicine; Referring Provider Internal Medicine; Visit Provider Physician Assistant | DX: S01.90XA Unspecified open wound of unspecified part of head, initial encounter (principal); X58.XXXA Exposure to other specified factors, initial encounter; D48.5 Neoplasm of uncertain behavior of skin; E11.69 Type 2 diabetes mellitus with other specified complication; N18.4 Chronic kidney disease, stage 4 (severe); D64.9 Anemia, unspecified; C76.0 Malignant neoplasm of head, face and neck; C49.0 Malignant neoplasm of connective and soft tissue of head, face and neck | CPT/HCPCS: 17250; A9270 ==

== ENCOUNTER → 2024-10-07 | Outpatient (CLI) | payer OTHER, MEDICAID, SELFPAY ==
[2024-10-07 11:35] LABS: Basophils # (Auto) 0.1 Thou/mm3 (0.0-0.2); Basophils % (Auto) 0 % (0-2.5); Eosinophils # (Auto) 0.2 Thou/mm3 (0.0-0.5); Eosinophils % (Auto) 1 % (0-10); Hematocrit 24.2 % (41.0-53.0); Immature Granulocytes % (Auto) 1 % (0-0); Immature Granulocytes Auto 0.18 Thou/mm3 (0.00-0.00); Lymphocytes # (Auto) 1.8 Thou/mm3 (1.0-4.8); Lymphocytes % (Auto) 8 % (10-50); Mean Corpuscular HGB Conc 32.2 g/dl (31.0-37.0); Mean Corpuscular Hemoglobin 26.5 pg (25.0-35.0); Mean Corpuscular Volume 82 fL (80-100); Monocytes # (Auto) 1.4 Thou/mm3 (0.0-0.8); Monocytes % (Auto) 6 % (0-12); Neutrophils # (Auto) 18.9 Thou/mm3 (1.8-7.7); Neutrophils % (Auto) 84 % (37-80); Nucleated Red Blood Cell % 0 /100 WBC (0); Platelet Count 421 Thou/mm3 (140-440); RDW Standard Deviation 46.3 fL (35.1-43.9); Red Blood Count 2.94 Miln/mm3 (4.50-5.90); White Blood Count 22.5 Thou/mm3 (3.8-10.6)
[2024-10-07 11:40] LABS: Hemoglobin 7.8 g/dL (13.5-16.0)
[2024-10-07 11:48] LABS: Alanine Aminotransferase 13 U/L (10-49); Albumin, Serum 3.7 gm/dL (3.4-4.8); Albumin/Globulin Ratio 1.5 (1.2-2.2); Alkaline Phosphatase 142 U/L (46-116); Anion Gap 6 (7-16); Aspartate Amino Transferase 10 U/L (0-34); BUN/Creatinine Ratio 14 Ratio (12-20); Bilirubin,Total 0.3 mg/dL (0.3-1.2); Blood Urea Nitrogen 28 mg/dL (9-23); Calcium 10.8 mg/dL (8.3-10.6); Carbon Dioxide 25.7 mMol/L (20.0-31.0); Chloride 98 mMol/L (98-107); Globulin 2.4 gm/dL (2.3-3.5); Glucose 178 mg/dL (74-106); Osmolality,Calculated 270 (275-295); Potassium 5.1 mMol/L (3.4-5.1); Sodium 130 mMol/L (136-145); Total Protein 6.1 gm/dL (5.7-8.2); eGFR 34 See Note
== END | disposition home or self-care (01) ==
PROVIDERS: PCP Internal Medicine; Referring Provider Internal Medicine Hematology & Oncology; Visit Provider Internal Medicine Hematology & Oncology
DX: C44.90 Unspecified malignant neoplasm of skin, unspecified (principal); E03.9 Hypothyroidism, unspecified
CPT/HCPCS: 36415; 80053; 85025

== ENCOUNTER → 2024-10-09 | Outpatient (CLI) | payer OTHER, MEDICAID, SELFPAY | END | disposition home or self-care (01) | LOC: SWHD 12:39 | PROVIDERS: PCP Internal Medicine; Referring Provider Internal Medicine; Visit Provider Student in an Organized Health Care Education/Training Program | DX: S01.90XA Unspecified open wound of unspecified part of head, initial encounter (principal); X58.XXXA Exposure to other specified factors, initial encounter; D48.5 Neoplasm of uncertain behavior of skin; E11.69 Type 2 diabetes mellitus with other specified complication; N18.4 Chronic kidney disease, stage 4 (severe); Z79.84 Long term (current) use of oral hypoglycemic drugs; D64.9 Anemia, unspecified; C76.0 Malignant neoplasm of head, face and neck; C49.0 Malignant neoplasm of connective and soft tissue of head, face and neck | CPT/HCPCS: 11042; 11045; A9270 ==

== ENCOUNTER 2024-10-14 16:16 | Emergency (ER) | payer OTHER, SELFPAY ==
[2024-10-14 16:24] VITALS: PULSE 90; RESP 18; O2SAT 99; BMI 21.4
[2024-10-14 18:30] VITALS: BP 121/55; PULSE 82; RESP 20; TEMP 36.6; O2SAT 99
--- NOTE | 2024-10-14 20:27 | PD.EDRME ---
Rapid Medical Screening Exam RME Arrival date/time: 10/14/24 16:16 This is a case of 74-year-old male who came in the emergency room due to bleeding from the head status postbiopsy and a skin lesion 45 minutes prior to arrival in the emergency room patient eloped after MSE Chief Complaint: Skin/Abscess/Foreign Body Time Seen by Provider: 10/14/24 18:20 Vital signs: Vital Signs Temperature 97.8 F 10/14/24 18:30 Pulse Rate 82 10/14/24 18:30 Respiratory Rate 20 10/14/24 18:30 Blood Pressure 121/55 L 10/14/24 18:30 Pulse Oximetry (%) 99 10/14/24 18:30 Oxygen Delivery Method Room Air 10/14/24 18:30
--- NOTE | 2024-10-14 20:34 | PD.EDADDENDU ---
Emergency Room Addendum Addendum Narrative: When I looked for the patient to start my evaluation, I was told the patient eloped. Alphonso Lee MD
== END 2024-10-15 19:01 | disposition left against medical advice (07) ==
PROVIDERS: Emergency Provider Emergency Medicine; PCP Internal Medicine
DX: L76.22 Postprocedural hemorrhage of skin and subcutaneous tissue following other procedure (principal); Y84.8 Other medical procedures as the cause of abnormal reaction of the patient, or of later complication, without mention of misadventure at the time of the procedure; Z53.29 Procedure and treatment not carried out because of patient's decision for other reasons
CPT/HCPCS: 99281

== ENCOUNTER → 2024-10-14 | Outpatient (CLI) | payer OTHER, SELFPAY ==
[2024-10-14 13:26] LABS: Alanine Aminotransferase 10 U/L (10-49); Albumin, Serum 3.4 gm/dL (3.4-4.8); Albumin/Globulin Ratio 1.3 (1.2-2.2); Alkaline Phosphatase 123 U/L (46-116); Anion Gap 10 (7-16); Aspartate Amino Transferase 10 U/L (0-34); BUN/Creatinine Ratio 17 Ratio (12-20); Bilirubin,Total 0.2 mg/dL (0.3-1.2); Blood Urea Nitrogen 46 mg/dL (9-23); Calcium 9.8 mg/dL (8.3-10.6); Calcium (Corrected) 10.3 mg/dL (8.5-10.1); Carbon Dioxide 22.2 mMol/L (20.0-31.0); Chloride 103 mMol/L (98-107); Creatinine (Component) 2.7 mg/dL (0.6-1.3); Globulin 2.7 gm/dL (2.3-3.5); Glucose 259 mg/dL (74-106); Osmolality,Calculated 291 (275-295); Potassium 5.1 mMol/L (3.4-5.1); Sodium 135 mMol/L (136-145); Thyroid Stimulating Hormone 2.76 uIU/mL (0.55-4.78); Total Protein 6.1 gm/dL (5.7-8.2); eGFR 24 See Note
[2024-10-14 13:27] LABS: Basophils # (Auto) 0.0 Thou/mm3 (0.0-0.2); Basophils % (Auto) 0 % (0-2.5); Eosinophils # (Auto) 0.3 Thou/mm3 (0.0-0.5); Eosinophils % (Auto) 2 % (0-10); Immature Granulocytes Auto 0.14 Thou/mm3 (0.00-0.00); Lymphocytes # (Auto) 1.5 Thou/mm3 (1.0-4.8); Lymphocytes % (Auto) 10 % (10-50); Mean Corpuscular HGB Conc 32.6 g/dl (31.0-37.0); Mean Corpuscular Hemoglobin 26.6 pg (25.0-35.0); Mean Corpuscular Volume 81 fL (80-100); Monocytes # (Auto) 1.3 Thou/mm3 (0.0-0.8); Monocytes % (Auto) 8 % (0-12); Neutrophils # (Auto) 12.4 Thou/mm3 (1.8-7.7); Neutrophils % (Auto) 79 % (37-80); Nucleated Red Blood Cell # 0.00 Thou/mm3 (0.00-0.00); Nucleated Red Blood Cell % 0 /100 WBC (0); Platelet Count 370 Thou/mm3 (140-440); RDW Standard Deviation 47.7 fL (35.1-43.9); Red Blood Count 2.37 Miln/mm3 (4.50-5.90); White Blood Count 15.7 Thou/mm3 (3.8-10.6)
[2024-10-14 13:39] LABS: Hematocrit 19.3 % (41.0-53.0)
[2024-10-14 13:40] LABS: Hemoglobin 6.3 g/dL (13.5-16.0)
== END | disposition home or self-care (01) ==
LOC: COPL 12:00
PROVIDERS: PCP Internal Medicine; Referring Provider Internal Medicine Hematology & Oncology; Visit Provider Internal Medicine Hematology & Oncology
DX: C44.90 Unspecified malignant neoplasm of skin, unspecified (principal); E03.9 Hypothyroidism, unspecified
CPT/HCPCS: 36415; 80053; 84443; 85025

== ENCOUNTER → 2024-10-16 | Outpatient (CLI) | payer OTHER, SELFPAY | END | disposition home or self-care (01) | LOC: SWHD 12:41 | PROVIDERS: PCP Internal Medicine; Referring Provider Internal Medicine; Visit Provider Student in an Organized Health Care Education/Training Program | DX: S01.90XA Unspecified open wound of unspecified part of head, initial encounter (principal); X58.XXXA Exposure to other specified factors, initial encounter; D48.5 Neoplasm of uncertain behavior of skin; E11.69 Type 2 diabetes mellitus with other specified complication; N18.4 Chronic kidney disease, stage 4 (severe); Z79.84 Long term (current) use of oral hypoglycemic drugs; D64.9 Anemia, unspecified; C76.0 Malignant neoplasm of head, face and neck; C49.0 Malignant neoplasm of connective and soft tissue of head, face and neck | CPT/HCPCS: 17250; A9270 ==

== ENCOUNTER → 2024-10-18 | Outpatient (CLI) | payer OTHER, SELFPAY | END | disposition home or self-care (01) | LOC: SWHD 12:40 | PROVIDERS: PCP Internal Medicine; Referring Provider Internal Medicine; Visit Provider Surgery | DX: S01.90XA Unspecified open wound of unspecified part of head, initial encounter (principal); X58.XXXA Exposure to other specified factors, initial encounter; D48.5 Neoplasm of uncertain behavior of skin; E11.69 Type 2 diabetes mellitus with other specified complication; N18.4 Chronic kidney disease, stage 4 (severe); Z79.84 Long term (current) use of oral hypoglycemic drugs; D64.9 Anemia, unspecified; C76.0 Malignant neoplasm of head, face and neck; C49.0 Malignant neoplasm of connective and soft tissue of head, face and neck | CPT/HCPCS: 99213; A9270; G0463 ==

== ENCOUNTER → 2024-10-21 | Outpatient (CLI) | payer OTHER, MEDICAID, SELFPAY ==
[2024-10-21 14:13] LABS: Basophils # (Auto) 0.1 Thou/mm3 (0.0-0.2); Basophils % (Auto) 0 % (0-2.5); Eosinophils # (Auto) 0.1 Thou/mm3 (0.0-0.5); Eosinophils % (Auto) 1 % (0-10); Hematocrit 25.8 % (41.0-53.0); Immature Granulocytes Auto 0.09 Thou/mm3 (0.00-0.00); Lymphocytes # (Auto) 1.7 Thou/mm3 (1.0-4.8); Lymphocytes % (Auto) 11 % (10-50); Mean Corpuscular HGB Conc 32.2 g/dl (31.0-37.0); Mean Corpuscular Hemoglobin 27.1 pg (25.0-35.0); Mean Corpuscular Volume 84 fL (80-100); Monocytes # (Auto) 1.3 Thou/mm3 (0.0-0.8); Monocytes % (Auto) 8 % (0-12); Neutrophils # (Auto) 12.7 Thou/mm3 (1.8-7.7); Neutrophils % (Auto) 80 % (37-80); Nucleated Red Blood Cell # 0.00 Thou/mm3 (0.00-0.00); Nucleated Red Blood Cell % 0 /100 WBC (0); Platelet Count 365 Thou/mm3 (140-440); RDW Standard Deviation 50.9 fL (35.1-43.9); Red Blood Count 3.06 Miln/mm3 (4.50-5.90); White Blood Count 15.9 Thou/mm3 (3.8-10.6)
[2024-10-21 14:15] LABS: Hemoglobin 8.3 g/dL (13.5-16.0)
[2024-10-21 14:38] LABS: Alanine Aminotransferase 7 U/L (10-49); Albumin, Serum 3.5 gm/dL (3.4-4.8); Albumin/Globulin Ratio 1.2 (1.2-2.2); Alkaline Phosphatase 101 U/L (46-116); Anion Gap 11 (7-16); Aspartate Amino Transferase 10 U/L (0-34); BUN/Creatinine Ratio 24 Ratio (12-20); Bilirubin,Total 0.2 mg/dL (0.3-1.2); Blood Urea Nitrogen 57 mg/dL (9-23); Calcium 9.8 mg/dL (8.3-10.6); Calcium (Corrected) 10.2 mg/dL (8.5-10.1); Carbon Dioxide 25.5 mMol/L (20.0-31.0); Chloride 99 mMol/L (98-107); Creatinine (Component) 2.4 mg/dL (0.6-1.3); Globulin 3.0 gm/dL (2.3-3.5); Glucose 173 mg/dL (74-106); Osmolality,Calculated 289 (275-295); Potassium 4.9 mMol/L (3.4-5.1); Sodium 135 mMol/L (136-145); Total Protein 6.5 gm/dL (5.7-8.2); eGFR 27 See Note
== END | disposition home or self-care (01) ==
LOC: SCTO 13:05
PROVIDERS: PCP Internal Medicine; Referring Provider Internal Medicine Hematology & Oncology; Visit Provider Internal Medicine Hematology & Oncology
DX: C44.90 Unspecified malignant neoplasm of skin, unspecified (principal)
CPT/HCPCS: 36415; 80053; 85025

== ENCOUNTER → 2024-10-23 | Outpatient (CLI) | payer OTHER, MEDICAID, SELFPAY | END | disposition home or self-care (01) | LOC: SWHD 12:30 | PROVIDERS: PCP Internal Medicine; Referring Provider Internal Medicine; Visit Provider Student in an Organized Health Care Education/Training Program | DX: S01.90XA Unspecified open wound of unspecified part of head, initial encounter (principal); X58.XXXA Exposure to other specified factors, initial encounter; D48.5 Neoplasm of uncertain behavior of skin; C76.0 Malignant neoplasm of head, face and neck; C49.0 Malignant neoplasm of connective and soft tissue of head, face and neck | CPT/HCPCS: 17250; 99213; A9270; G0463 ==

== ENCOUNTER → 2024-10-25 | Outpatient (CLI) | payer OTHER, MEDICAID, SELFPAY | END | disposition home or self-care (01) | LOC: SWHD 13:15 | PROVIDERS: PCP Internal Medicine; Referring Provider Internal Medicine; Visit Provider Student in an Organized Health Care Education/Training Program | DX: S01.90XA Unspecified open wound of unspecified part of head, initial encounter (principal); X58.XXXA Exposure to other specified factors, initial encounter; D48.5 Neoplasm of uncertain behavior of skin; E11.69 Type 2 diabetes mellitus with other specified complication; N18.4 Chronic kidney disease, stage 4 (severe); Z79.84 Long term (current) use of oral hypoglycemic drugs; C76.0 Malignant neoplasm of head, face and neck; C49.0 Malignant neoplasm of connective and soft tissue of head, face and neck | CPT/HCPCS: 99213; G0463 ==

== ENCOUNTER → 2024-10-30 | Outpatient (CLI) | payer OTHER, MEDICAID, SELFPAY | END | disposition home or self-care (01) | LOC: SWHD 12:53 | PROVIDERS: PCP Internal Medicine; Referring Provider Internal Medicine; Visit Provider Student in an Organized Health Care Education/Training Program | DX: S01.90XA Unspecified open wound of unspecified part of head, initial encounter (principal); X58.XXXA Exposure to other specified factors, initial encounter; D48.5 Neoplasm of uncertain behavior of skin; E11.69 Type 2 diabetes mellitus with other specified complication; N18.4 Chronic kidney disease, stage 4 (severe); Z79.84 Long term (current) use of oral hypoglycemic drugs; C76.0 Malignant neoplasm of head, face and neck; C49.0 Malignant neoplasm of connective and soft tissue of head, face and neck | CPT/HCPCS: 17250; A9270 ==

== ENCOUNTER → 2024-11-01 | Outpatient (CLI) | payer OTHER, MEDICAID, SELFPAY | END | disposition home or self-care (01) | LOC: SWHD 12:38 | PROVIDERS: PCP Internal Medicine; Referring Provider Internal Medicine; Visit Provider Student in an Organized Health Care Education/Training Program | DX: S01.90XA Unspecified open wound of unspecified part of head, initial encounter (principal); X58.XXXA Exposure to other specified factors, initial encounter; D48.5 Neoplasm of uncertain behavior of skin; E11.69 Type 2 diabetes mellitus with other specified complication; N18.4 Chronic kidney disease, stage 4 (severe); Z79.84 Long term (current) use of oral hypoglycemic drugs; C76.0 Malignant neoplasm of head, face and neck; C49.0 Malignant neoplasm of connective and soft tissue of head, face and neck | CPT/HCPCS: 99213; A9270; G0463 ==

== ENCOUNTER → 2024-11-04 | Outpatient (CLI) | payer OTHER, MEDICAID, SELFPAY ==
[2024-11-04 15:47] LABS: Basophils # (Auto) 0.0 Thou/mm3 (0.0-0.2); Basophils % (Auto) 0 % (0-2.5); Eosinophils # (Auto) 0.1 Thou/mm3 (0.0-0.5); Eosinophils % (Auto) 1 % (0-10); Immature Granulocytes Auto 0.07 Thou/mm3 (0.00-0.00); Lymphocytes # (Auto) 1.4 Thou/mm3 (1.0-4.8); Lymphocytes % (Auto) 12 % (10-50); Mean Corpuscular HGB Conc 31.0 g/dl (31.0-37.0); Mean Corpuscular Hemoglobin 26.9 pg (25.0-35.0); Mean Corpuscular Volume 87 fL (80-100); Monocytes # (Auto) 1.1 Thou/mm3 (0.0-0.8); Monocytes % (Auto) 9 % (0-12); Neutrophils # (Auto) 9.6 Thou/mm3 (1.8-7.7); Neutrophils % (Auto) 78 % (37-80); Nucleated Red Blood Cell # 0.00 Thou/mm3 (0.00-0.00); Nucleated Red Blood Cell % 0 /100 WBC (0); Platelet Count 460 Thou/mm3 (140-440); RDW Standard Deviation 51.8 fL (35.1-43.9); Red Blood Count 2.12 Miln/mm3 (4.50-5.90); White Blood Count 12.3 Thou/mm3 (3.8-10.6)
[2024-11-04 15:57] LABS: Hematocrit 18.4 % (41.0-53.0); Hemoglobin 5.7 g/dL (13.5-16.0)
[2024-11-04 16:07] LABS: Alanine Aminotransferase 25 U/L (10-49); Albumin, Serum 3.5 gm/dL (3.4-4.8); Albumin/Globulin Ratio 1.5 (1.2-2.2); Alkaline Phosphatase 122 U/L (46-116); Anion Gap 11 (7-16); Aspartate Amino Transferase 16 U/L (0-34); BUN/Creatinine Ratio 22 Ratio (12-20); Bilirubin,Total < 0.2 mg/dL (0.3-1.2); Blood Urea Nitrogen 53 mg/dL (9-23); Calcium 9.3 mg/dL (8.3-10.6); Calcium (Corrected) 9.7 mg/dL (8.5-10.1); Carbon Dioxide 25.0 mMol/L (20.0-31.0); Chloride 105 mMol/L (98-107); Creatinine (Component) 2.4 mg/dL (0.6-1.3); Globulin 2.4 gm/dL (2.3-3.5); Glucose 93 mg/dL (74-106); Osmolality,Calculated 295 (275-295); Potassium 5.0 mMol/L (3.4-5.1); Sodium 141 mMol/L (136-145); Thyroid Stimulating Hormone 2.68 uIU/mL (0.55-4.78); Total Protein 5.9 gm/dL (5.7-8.2); eGFR 27 See Note
== END | disposition home or self-care (01) ==
LOC: SCTO 14:05
PROVIDERS: PCP Internal Medicine; Referring Provider Internal Medicine Hematology & Oncology; Visit Provider Internal Medicine Hematology & Oncology
DX: E03.9 Hypothyroidism, unspecified (principal); C44.90 Unspecified malignant neoplasm of skin, unspecified
CPT/HCPCS: 36415; 80053; 84443; 85025

== ENCOUNTER → 2024-11-06 | Outpatient (CLI) | payer OTHER, MEDICAID, SELFPAY | END | disposition home or self-care (01) | PROVIDERS: PCP Internal Medicine; Referring Provider Internal Medicine; Visit Provider Student in an Organized Health Care Education/Training Program | DX: S01.90XA Unspecified open wound of unspecified part of head, initial encounter (principal); X58.XXXA Exposure to other specified factors, initial encounter; D48.5 Neoplasm of uncertain behavior of skin; E11.69 Type 2 diabetes mellitus with other specified complication; N18.4 Chronic kidney disease, stage 4 (severe); Z79.84 Long term (current) use of oral hypoglycemic drugs; C76.0 Malignant neoplasm of head, face and neck; C49.0 Malignant neoplasm of connective and soft tissue of head, face and neck | CPT/HCPCS: 17250 ==

== ENCOUNTER → 2024-11-06 | Outpatient (CLI) | payer OTHER, MEDICAID, SELFPAY ==
--- NOTE | 2024-11-06 13:15 | XR_ITS ---
Examination: Bone scan whole body, radioisotope Date and time of exam: November 06, 2024 1402 hours INDICATIONS: Diagnosis malignant neoplasm of the skin, skin cancer tumor the head Technique: Study has been performed with intravenous administration of 20.8 mci 99M technetium MDP. Anterior, posterior whole body images are obtained. Images have been obtained including the lower extremities. Findings: Irregular increased isotope accumulation in the left cranial vault most prominent anteriorly in the frontotemporal region Remaining images demonstrate symmetrical isotope accumulation IMPRESSION: Abnormal increased isotope accumulation left cranial vault, recommend 6 view standard skull series follow-up
== END | disposition home or self-care (01) ==
PROVIDERS: PCP Internal Medicine; Referring Provider Urology; Visit Provider Urology
DX: R93.7 Abnormal findings on diagnostic imaging of other parts of musculoskeletal system (principal); C44.90 Unspecified malignant neoplasm of skin, unspecified
CPT/HCPCS: 78306; A9503

== ENCOUNTER 2024-11-07 07:33 | Outpatient (RCR) | payer OTHER, SELFPAY ==
[2024-10-15 09:21] LABS: Basophils # (Auto) 0.1 Thou/mm3 (0.0-0.2); Basophils % (Auto) 0 % (0-2.5); Eosinophils # (Auto) 0.4 Thou/mm3 (0.0-0.5); Eosinophils % (Auto) 3 % (0-10); Hematocrit 20.7 % (41.0-53.0); Immature Granulocytes Auto 0.10 Thou/mm3 (0.00-0.00); Lymphocytes # (Auto) 1.5 Thou/mm3 (1.0-4.8); Lymphocytes % (Auto) 11 % (10-50); Mean Corpuscular HGB Conc 31.9 g/dl (31.0-37.0); Mean Corpuscular Hemoglobin 26.8 pg (25.0-35.0); Mean Corpuscular Volume 84 fL (80-100); Monocytes # (Auto) 1.0 Thou/mm3 (0.0-0.8); Monocytes % (Auto) 8 % (0-12); Neutrophils # (Auto) 10.4 Thou/mm3 (1.8-7.7); Neutrophils % (Auto) 77 % (37-80); Nucleated Red Blood Cell # 0.00 Thou/mm3 (0.00-0.00); Nucleated Red Blood Cell % 0 /100 WBC (0); Platelet Count 401 Thou/mm3 (140-440); RDW Standard Deviation 48.8 fL (35.1-43.9); Red Blood Count 2.46 Miln/mm3 (4.50-5.90); White Blood Count 13.4 Thou/mm3 (3.8-10.6)
[2024-10-15 09:26] LABS: Alanine Aminotransferase 11 U/L (10-49); Albumin, Serum 3.5 gm/dL (3.4-4.8); Albumin/Globulin Ratio 1.3 (1.2-2.2); Alkaline Phosphatase 122 U/L (46-116); Anion Gap 9 (7-16); Aspartate Amino Transferase 11 U/L (0-34); BUN/Creatinine Ratio 17 Ratio (12-20); Bilirubin,Total 0.2 mg/dL (0.3-1.2); Blood Urea Nitrogen 45 mg/dL (9-23); Calcium 9.6 mg/dL (8.3-10.6); Calcium (Corrected) 10.0 mg/dL (8.5-10.1); Carbon Dioxide 24.4 mMol/L (20.0-31.0); Chloride 104 mMol/L (98-107); Creatinine (Component) 2.6 mg/dL (0.6-1.3); Globulin 2.7 gm/dL (2.3-3.5); Glucose 115 mg/dL (74-106); Osmolality,Calculated 286 (275-295); Potassium 5.2 mMol/L (3.4-5.1); Sodium 137 mMol/L (136-145); Thyroid Stimulating Hormone 3.94 uIU/mL (0.55-4.78); Total Protein 6.2 gm/dL (5.7-8.2); eGFR 25 See Note
[2024-10-15 09:52] LABS: Hemoglobin 6.5 g/dL (13.5-16.0)
[2024-10-15 16:51] LABS: Path Review Blood Smear Sent to Pathologist
[2024-10-23 09:25] LABS: Alanine Aminotransferase < 7 U/L (10-49); Albumin, Serum 3.7 gm/dL (3.4-4.8); Albumin/Globulin Ratio 1.2 (1.2-2.2); Alkaline Phosphatase 121 U/L (46-116); Anion Gap 10 (7-16); Aspartate Amino Transferase 11 U/L (0-34); BUN/Creatinine Ratio 25 Ratio (12-20); Bilirubin,Total 0.2 mg/dL (0.3-1.2); Blood Urea Nitrogen 54 mg/dL (9-23); Calcium 10.4 mg/dL (8.3-10.6); Calcium (Corrected) 10.6 mg/dL (8.5-10.1); Carbon Dioxide 26.4 mMol/L (20.0-31.0); Chloride 100 mMol/L (98-107); Creatinine (Component) 2.2 mg/dL (0.6-1.3); Globulin 3.1 gm/dL (2.3-3.5); Glucose 127 mg/dL (74-106); Osmolality,Calculated 288 (275-295); Potassium 4.9 mMol/L (3.4-5.1); Sodium 136 mMol/L (136-145); Total Protein 6.8 gm/dL (5.7-8.2); eGFR 30 See Note
[2024-10-29 09:45] LABS: Basophils # (Auto) 0.0 Thou/mm3 (0.0-0.2); Basophils % (Auto) 0 % (0-2.5); Eosinophils # (Auto) 0.4 Thou/mm3 (0.0-0.5); Eosinophils % (Auto) 3 % (0-10); Hematocrit 25.3 % (41.0-53.0); Immature Granulocytes Auto 0.13 Thou/mm3 (0.00-0.00); Lymphocytes # (Auto) 1.7 Thou/mm3 (1.0-4.8); Lymphocytes % (Auto) 10 % (10-50); Mean Corpuscular HGB Conc 32.8 g/dl (31.0-37.0); Mean Corpuscular Hemoglobin 27.1 pg (25.0-35.0); Mean Corpuscular Volume 83 fL (80-100); Monocytes # (Auto) 1.8 Thou/mm3 (0.0-0.8); Monocytes % (Auto) 10 % (0-12); Neutrophils # (Auto) 13.0 Thou/mm3 (1.8-7.7); Neutrophils % (Auto) 77 % (37-80); Nucleated Red Blood Cell # 0.00 Thou/mm3 (0.00-0.00); Nucleated Red Blood Cell % 0 /100 WBC (0); Platelet Count 382 Thou/mm3 (140-440); RDW Standard Deviation 50.2 fL (35.1-43.9); Red Blood Count 3.06 Miln/mm3 (4.50-5.90); White Blood Count 17.0 Thou/mm3 (3.8-10.6)
[2024-10-29 10:05] LABS: Alanine Aminotransferase 18 U/L (10-49); Albumin, Serum 3.9 gm/dL (3.4-4.8); Albumin/Globulin Ratio 1.2 (1.2-2.2); Alkaline Phosphatase 146 U/L (46-116); Anion Gap 10 (7-16); Aspartate Amino Transferase 20 U/L (0-34); BUN/Creatinine Ratio 22 Ratio (12-20); Bilirubin,Total 0.4 mg/dL (0.3-1.2); Blood Urea Nitrogen 50 mg/dL (9-23); Calcium 10.2 mg/dL (8.3-10.6); Calcium (Corrected) 10.3 mg/dL (8.5-10.1); Carbon Dioxide 26.3 mMol/L (20.0-31.0); Chloride 98 mMol/L (98-107); Creatinine (Component) 2.3 mg/dL (0.6-1.3); Globulin 3.2 gm/dL (2.3-3.5); Glucose 161 mg/dL (74-106); Osmolality,Calculated 284 (275-295); Potassium 4.5 mMol/L (3.4-5.1); Sodium 134 mMol/L (136-145); Thyroid Stimulating Hormone 3.13 uIU/mL (0.55-4.78); Total Protein 7.1 gm/dL (5.7-8.2); eGFR 29 See Note
[2024-10-29 10:08] LABS: Hemoglobin 8.3 g/dL (13.5-16.0)
[2024-11-05 16:01] LABS: Hematocrit 24.6 % (41.0-53.0)
[2024-11-05 16:06] LABS: Hemoglobin 7.8 g/dL (13.5-16.0)
== END 2024-11-07 23:59 | disposition home or self-care (01) ==
LOC: SCTC 07:33
PROVIDERS: PCP Internal Medicine; Referring Provider Internal Medicine; Visit Provider Internal Medicine Hematology & Oncology
DX: Z51.11 Encounter for antineoplastic chemotherapy (principal); C44.42 Squamous cell carcinoma of skin of scalp and neck; D64.9 Anemia, unspecified; L98.8 Other specified disorders of the skin and subcutaneous tissue
CPT/HCPCS: 36415; 36430; 80053; 84443; 85014; 85018; 85025; 86850; 86900; 86901; 86923; 96374; 96375; 96413; A4216; J1938; J7040; J7050; J9119; P9016

== ENCOUNTER → 2024-11-08 | Outpatient (CLI) | payer OTHER, MEDICAID, SELFPAY | END | disposition home or self-care (01) | LOC: SWHD 12:40 | PROVIDERS: PCP Internal Medicine; Referring Provider Internal Medicine; Visit Provider Surgery | DX: S01.90XA Unspecified open wound of unspecified part of head, initial encounter (principal); X58.XXXA Exposure to other specified factors, initial encounter; D48.5 Neoplasm of uncertain behavior of skin; E11.69 Type 2 diabetes mellitus with other specified complication; N18.4 Chronic kidney disease, stage 4 (severe); Z79.84 Long term (current) use of oral hypoglycemic drugs; C76.0 Malignant neoplasm of head, face and neck; C49.0 Malignant neoplasm of connective and soft tissue of head, face and neck | CPT/HCPCS: 99213; A9270; G0463 ==

== ENCOUNTER → 2024-11-11 | Outpatient (CLI) | payer OTHER, MEDICAID, SELFPAY ==
[2024-11-11 13:14] LABS: Basophils # (Auto) 0.0 Thou/mm3 (0.0-0.2); Basophils % (Auto) 0 % (0-2.5); Eosinophils # (Auto) 0.2 Thou/mm3 (0.0-0.5); Eosinophils % (Auto) 2 % (0-10); Hematocrit 31.3 % (41.0-53.0); Hemoglobin 9.9 g/dL (13.5-16.0); Immature Granulocytes Auto 0.06 Thou/mm3 (0.00-0.00); Lymphocytes # (Auto) 2.3 Thou/mm3 (1.0-4.8); Lymphocytes % (Auto) 17 % (10-50); Mean Corpuscular HGB Conc 31.6 g/dl (31.0-37.0); Mean Corpuscular Hemoglobin 28.4 pg (25.0-35.0); Mean Corpuscular Volume 90 fL (80-100); Monocytes # (Auto) 1.0 Thou/mm3 (0.0-0.8); Monocytes % (Auto) 8 % (0-12); Neutrophils # (Auto) 9.5 Thou/mm3 (1.8-7.7); Neutrophils % (Auto) 73 % (37-80); Nucleated Red Blood Cell # 0.00 Thou/mm3 (0.00-0.00); Nucleated Red Blood Cell % 0 /100 WBC (0); Platelet Count 341 Thou/mm3 (140-440); RDW Standard Deviation 54.3 fL (35.1-43.9); Red Blood Count 3.48 Miln/mm3 (4.50-5.90); White Blood Count 13.1 Thou/mm3 (3.8-10.6)
[2024-11-11 13:28] LABS: Alanine Aminotransferase 14 U/L (10-49); Albumin, Serum 4.0 gm/dL (3.4-4.8); Albumin/Globulin Ratio 1.4 (1.2-2.2); Alkaline Phosphatase 122 U/L (46-116); Anion Gap 8 (7-16); Aspartate Amino Transferase 14 U/L (0-34); BUN/Creatinine Ratio 20 Ratio (12-20); Bilirubin,Total 0.3 mg/dL (0.3-1.2); Blood Urea Nitrogen 46 mg/dL (9-23); Calcium 10.7 mg/dL (8.3-10.6); Calcium (Corrected) 10.7 mg/dL (8.5-10.1); Carbon Dioxide 28.3 mMol/L (20.0-31.0); Chloride 104 mMol/L (98-107); Creatinine (Component) 2.3 mg/dL (0.6-1.3); Globulin 2.8 gm/dL (2.3-3.5); Glucose 83 mg/dL (74-106); Osmolality,Calculated 290 (275-295); Potassium 5.8 mMol/L (3.4-5.1); Sodium 140 mMol/L (136-145); Thyroid Stimulating Hormone 3.85 uIU/mL (0.55-4.78); Total Protein 6.8 gm/dL (5.7-8.2); eGFR 29 See Note
== END | disposition home or self-care (01) ==
LOC: COPL 12:27 → SCTO 12:31
PROVIDERS: PCP Internal Medicine Hematology & Oncology; Referring Provider Internal Medicine Hematology & Oncology; Visit Provider Internal Medicine Hematology & Oncology
DX: C44.90 Unspecified malignant neoplasm of skin, unspecified (principal); E03.9 Hypothyroidism, unspecified
CPT/HCPCS: 36415; 80053; 84443; 85025

== ENCOUNTER → 2024-11-12 | Outpatient (CLI) | payer OTHER, MEDICAID, SELFPAY ==
--- NOTE | 2024-11-12 10:15 | XR_ITS ---
EXAMINATION: PET/CT FUSION SKULL TO THIGH EXAM DATE AND TIME: November 12, 2024 1010 hours Comparison PET/CT scan July 09, 2024, brain MRI 01/07/2021 INDICATIONS: Diagnosis skin cancer, hypermetabolic left frontal scalp lesion 9.8 cm, hypermetabolic soft tissue mass below the left ear 8.5 cm, hypermetabolic soft tissue mass anterior to the left ear 16mm, hypermetabolic skin nodule anterior to the upper sternum 12 mm, 25 mm, 22 mm hypermetabolic left lobe liver lesions, restaging post treatment CTDI:vol (mGy) 4.31 DLP: (mGycm) 447 PROCEDURE: 15.5 mCi FDG was administered intravenously To allow for distribution and uptake of radiotracer, the patient was allowed to rest quietly in a shielded room. Imaging was performed on an integrated 16-slice PET/CT scanner, with scanning from the skull base to the mid thigh. Serum blood glucose at the time of the injection was measured 86 mg/dL. CT scanning was performed without oral or intravenous contrast material. FINDINGS: Head and Neck: Smaller hypermetabolic left frontal scalp lesion which on this study is to hypermetabolic lesions, axial image 27, measuring 19 mm and 35 mm compared to 9.8 cm aggregate transverse dimension on July 09, 2024 More caudad left frontal scalp hypermetabolic lesion is currently weakly hypermetabolic, 5.3 cm in transverse dimension compared to 7.6 cm in transverse dimension on July 09, 2024 exam 8.5 cm hypermetabolic lesion left ear lesion extending below the left ear is no longer identified Chest: 12 mm hypermetabolic skin nodule anterior to the upper body of the sternum on July 09, 2024 is no longer identified. Abdomen and Pelvis: Hypermetabolic liver lesions are no longer identified. Musculoskeletal: Marrow uptake is within normal range. IMPRESSION: Significant treatment response compared to July 09, 2024 Smaller hypermetabolic left frontal scalp lesions, 19 mm and 35 mm compared to 9.8 cm aggregate hypermetabolic transverse dimension on PET/CT July 09, 2024 More caudad weakly hypermetabolic left frontal scalp lesion 5.3 cm in transverse dimension compared to 7.6 cm in transverse dimension July 09, 2024. The 8.5 cm hypermetabolic left ear lesion extending below the left ear is no longer identified The 12 mm hypermetabolic skin nodule anterior to the upper body of the sternum on July 09, 2024 is no longer identified
== END | disposition home or self-care (01) ==
PROVIDERS: PCP Internal Medicine; Referring Provider Internal Medicine Hematology & Oncology; Visit Provider Internal Medicine Hematology & Oncology
DX: L98.8 Other specified disorders of the skin and subcutaneous tissue (principal); R22.2 Localized swelling, mass and lump, trunk; C44.90 Unspecified malignant neoplasm of skin, unspecified
CPT/HCPCS: 78815; A9552

== ENCOUNTER → 2024-11-13 | Outpatient (CLI) | payer OTHER, MEDICAID, SELFPAY | END | disposition home or self-care (01) | LOC: SWHD 12:40 | PROVIDERS: PCP Internal Medicine; Referring Provider Internal Medicine; Visit Provider Student in an Organized Health Care Education/Training Program | DX: S01.90XA Unspecified open wound of unspecified part of head, initial encounter (principal); X58.XXXA Exposure to other specified factors, initial encounter; D48.5 Neoplasm of uncertain behavior of skin; E11.69 Type 2 diabetes mellitus with other specified complication; N18.4 Chronic kidney disease, stage 4 (severe); Z79.84 Long term (current) use of oral hypoglycemic drugs; C76.0 Malignant neoplasm of head, face and neck; C49.0 Malignant neoplasm of connective and soft tissue of head, face and neck | CPT/HCPCS: 17250 ==

== ENCOUNTER → 2024-11-15 | Outpatient (CLI) | payer OTHER, MEDICAID, SELFPAY | END | disposition home or self-care (01) | LOC: SWHD 12:39 | PROVIDERS: PCP Internal Medicine; Referring Provider Internal Medicine; Visit Provider Student in an Organized Health Care Education/Training Program | DX: S01.90XA Unspecified open wound of unspecified part of head, initial encounter (principal); X58.XXXA Exposure to other specified factors, initial encounter; D48.5 Neoplasm of uncertain behavior of skin; N18.4 Chronic kidney disease, stage 4 (severe); Z79.84 Long term (current) use of oral hypoglycemic drugs; C76.0 Malignant neoplasm of head, face and neck; C49.0 Malignant neoplasm of connective and soft tissue of head, face and neck | CPT/HCPCS: 97597 ==

== ENCOUNTER → 2024-11-18 | Outpatient (CLI) | payer OTHER, MEDICAID, SELFPAY ==
[2024-11-18 12:17] LABS: Basophils # (Auto) 0.0 Thou/mm3 (0.0-0.2); Basophils % (Auto) 1 % (0-2.5); Eosinophils # (Auto) 0.2 Thou/mm3 (0.0-0.5); Eosinophils % (Auto) 3 % (0-10); Hematocrit 31.3 % (41.0-53.0); Hemoglobin 10.2 g/dL (13.5-16.0); Immature Granulocytes Auto 0.03 Thou/mm3 (0.00-0.00); Lymphocytes # (Auto) 1.5 Thou/mm3 (1.0-4.8); Lymphocytes % (Auto) 18 % (10-50); Mean Corpuscular HGB Conc 32.6 g/dl (31.0-37.0); Mean Corpuscular Hemoglobin 28.5 pg (25.0-35.0); Mean Corpuscular Volume 87 fL (80-100); Monocytes # (Auto) 1.0 Thou/mm3 (0.0-0.8); Monocytes % (Auto) 11 % (0-12); Neutrophils # (Auto) 6.0 Thou/mm3 (1.8-7.7); Neutrophils % (Auto) 68 % (37-80); Nucleated Red Blood Cell # 0.00 Thou/mm3 (0.00-0.00); Nucleated Red Blood Cell % 0 /100 WBC (0); Platelet Count 241 Thou/mm3 (140-440); RDW Standard Deviation 51.6 fL (35.1-43.9); Red Blood Count 3.58 Miln/mm3 (4.50-5.90); White Blood Count 8.8 Thou/mm3 (3.8-10.6)
[2024-11-18 12:44] LABS: Alanine Aminotransferase 21 U/L (10-49); Albumin, Serum 4.1 gm/dL (3.4-4.8); Albumin/Globulin Ratio 1.5 (1.2-2.2); Alkaline Phosphatase 139 U/L (46-116); Anion Gap 8 (7-16); Aspartate Amino Transferase 22 U/L (0-34); BUN/Creatinine Ratio 19 Ratio (12-20); Bilirubin,Total 0.2 mg/dL (0.3-1.2); Blood Urea Nitrogen 47 mg/dL (9-23); Calcium 10.2 mg/dL (8.3-10.6); Calcium (Corrected) 10.2 mg/dL (8.5-10.1); Carbon Dioxide 24.8 mMol/L (20.0-31.0); Chloride 102 mMol/L (98-107); Creatinine (Component) 2.5 mg/dL (0.6-1.3); Globulin 2.8 gm/dL (2.3-3.5); Glucose 135 mg/dL (74-106); Osmolality,Calculated 284 (275-295); Potassium 4.2 mMol/L (3.4-5.1); Sodium 135 mMol/L (136-145); Thyroid Stimulating Hormone 3.89 uIU/mL (0.55-4.78); Total Protein 6.9 gm/dL (5.7-8.2); eGFR 26 See Note
== END | disposition home or self-care (01) ==
LOC: SCTO 10:11
PROVIDERS: PCP Internal Medicine; Referring Provider Internal Medicine Hematology & Oncology; Visit Provider Internal Medicine Hematology & Oncology
DX: C44.90 Unspecified malignant neoplasm of skin, unspecified (principal); E03.9 Hypothyroidism, unspecified
CPT/HCPCS: 36415; 80053; 84443; 85025

== ENCOUNTER 2024-11-20 14:50 | Outpatient (RCR) | payer OTHER, MEDICAID, SELFPAY ==
--- NOTE | 2024-11-20 16:19 | CTCFLWUP_ITS ---
Patient: MOLLY RANDALL : 1950 Page 2 of 5 FOLLOW UP NOTE DATE OF SERVICE: 11/20/2024 NAME: MOLLY RANDALL ACCOUNT: [id number] : 1950 AGE: 74 INTERVAL HISTORY: Mr. Antony Lou, a patient with scalp cancer, presents for follow-up after starting treatment with cemiplimab since May 2024. Cancer is shrunk a lot . face healed . only lesion on scalp ONCOLOGY HISTORY:?[facility] Hx? 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 Patient also diagnosed with melanoma in a March 2024 and was advised to follow-up with oncology. Patient was treated with radiation in the past for squamous cancer. Patient now have unhealing wounds. 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 amlodipine - 10 mg 1 tab Daily 2. Colace - 100 mg 1 Capsule Daily 3. furosemide - 40 mg 1 tab Daily 4. glimepiride - 4 mg Daily 5. lovastatin - 40 mg Twice a Day 6. oxybutynin chloride - 5 mg 1 tab In the evening 7. Pyridium - 100 mg 1 tab Twice a Day 8. sertraline - 50 mg 1 tab In the evening 9. tamsulosin - 0.4 mg 1 Capsule In the evening 10. traZODone - 50 mg 1 tab In the evening 11. Trulicity - 0.75 mg/0.5 mL 1 Shot Weekly?Palabra Meds? Medications Last Reconciled by Mayela Zaman MD on 11/20/2024 ALLERGIES: No Known Drug Allergies REVIEW OF SYSTEMS: A complete 14-point review of systems was performed and is negative except as noted in interval history. PHYSICAL EXAMINATION:?[facility] PE? VITAL SIGNS: Temperature?98.4, B/P?92/53, Oxygen?Saturation?98% Weight?130?lbs (Change?since?11/19/24:?-0.4?lbs) PAIN: 0 - No pain ECOG Performance Status: 0 - Asymptomatic and fully active GENERAL APPEARANCE: Appears well, in no apparent distress, appropriately interactive. HEENT: Normocephalic, no temporal wasting, normal conjunctiva, no scleral icterus, normal hearing, lips without lesions, neck normal range of motion. CARDIOVASCULAR: Not assessed. PULMONARY: Normal respiratory effort, no respiratory distress or use of accessory muscles, speaking in full sentences, no tachypnea. EXTREMITIES: No pedal edema or cyanosis. SKIN: Normal skin appearance. NEUROLOGIC: Alert and oriented x4. PSHYCHIATRIC: Appropriate affect, mood normal, behavior normal, intact thought and speech. LABORATORY DATA: I have personally reviewed and interpreted each of the patient?s relevant lab tests, abnormal findings are below: Date 11/11/24 11/18/24 ??WHITE?BLOOD?COUNT?(Thou/mm3) 13.1?H 8.8 ??RED?BLOOD?COUNT?(Miln/mm3) 3.48?L 3.58?L ??HEMOGLOBIN?(gm/dl) 9.9?L 10.2?L ??HEMATOCRIT?(%) 31.3?L 31.3?L ??PLATELET?COUNT?(Thou/mm3) 341 241 ??NEUTROPHILS?%,?AUTO?(%) 73 68 ??LYMPH?%,?AUTO?(%) 17 18 ??NEUTROPHILS,?AUTO?(Thou/mm3) 9.5?H 6.0 ??GLUCOSE,RANDOM?(mg/dL) 83 135?H ??BLOOD?UREA?NITROGEN?(mg/dL) 46?H 47?H ??CREATININE?(mg/dL) 2.30?H 2.50?H ??SODIUM?(mmol/L) 140 135?L ??POTASSIUM?(mmol/L) 5.8?H 4.2 ??CHLORIDE?(mmol/L) 104 102 ??CrCl?(CandG)?(ml/min) 24.50 22.54 ??AST/SGOT?(Unit/L) 14 22 ??ALT/SGPT?(Unit/L) 14 21 ??ALKALINE?PHOSPHATASE?(Unit/L) 122?H 139?H ??BILIRUBIN,?TOTAL?(mg/dL) 0.3 0.2?L ??PROTEIN?TOTAL?(gm/dl) 6.8 6.9 ??ALBUMIN,?SERUM?(gm/dl) 4.0 4.1 ??GLOBULIN?(gm/dl) 2.8 2.8 ??ALBUMIN/GLOBULIN?RATIO 1.4 1.5 ??CALCIUM,?SERUM?(mg/dL) 10.7?H 10.2 ??CALCIUM?SERUM?(CORRECTED)?(mg/dL) 10.7?H 10.2?H ASSESSMENT/PLAN:?Anthony Smith Assessment/Plan? 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 Patient is 74 yr old male with squamous cell cancer of skin and melanoma in situ Unresectable Non healing wounds s/p radiation in the past Patient is on cemplimab as first line systemic therapy every 3 weeks Continue cemiplimab Transfuse to keep hemoglobin above 7 Antony Lou, male patient with scalp cancer, following up on treatment with cemiplimab started in May 2024 pet scan shows response in all lesions Continue current therapy Anemia Improved and stable Plan: - Continue to monitor hemoglobin levels - Assess need for further transfusions as needed Bone Health Concerns Assessment: Patient has bone-related issues, possibly related to cancer metastases or treatment effects. Consideration for medication to decrease calcium levels, pending dental clearance. Plan: - Refer patient to dentist for clearance - Once dental clearance obtained, consider initiating medication to lower calcium levels (pending insurance approval) - Advise patient to increase water intake ORDERS: Order # Description [id number] Comprehensive Metabolic Panel - 12 + CBC with Auto Diff [id number] Follow Up 2 Months [id number] Follow Up Appointment [id number] CBC + Comprehensive Metabolic Panel [id number] Lab Appointment [id number] Follow Up Appointment [id number] CBC + Comprehensive Metabolic Panel [id number] Lab Appointment [id number] Follow Up Appointment [id number] CBC + Comprehensive Metabolic Panel [id number] Lab Appointment [id number] Follow Up Appointment [id number] CBC + Comprehensive Metabolic Panel [id number] Lab Appointment [id number] Follow Up Appointment [id number] CBC + Comprehensive Metabolic Panel [id number] Lab Appointment [id number] Follow Up Appointment [id number] CBC + Comprehensive Metabolic Panel [id number] Lab Appointment [id number] Follow Up Appointment [id number] CBC + Comprehensive Metabolic Panel [id number] Lab Appointment [id number] Follow Up Appointment [id number] CBC + Comprehensive Metabolic Panel [id number] Lab Appointment [id number] Follow Up Appointment [id number] CBC + Comprehensive Metabolic Panel [id number] Lab Appointment [id number] Follow Up Appointment [id number] CBC + Comprehensive Metabolic Panel [id number] Lab Appointment [id number] Follow Up Appointment [id number] CBC + Comprehensive Metabolic Panel [id number] Lab Appointment [id number] Follow Up Appointment [id number] CBC + Comprehensive Metabolic Panel [id number] Lab Appointment [id number] Follow Up Appointment [id number] CBC + Comprehensive Metabolic Panel [id number] Lab Appointment [id number] Follow Up Appointment [id number] CBC + Comprehensive Metabolic Panel [id number] Lab Appointment [id number] Follow Up Appointment [id number] CBC + Comprehensive Metabolic Panel [id number] Lab Appointment [id number] Follow Up Appointment [id number] CBC + Comprehensive Metabolic Panel [id number] Lab Appointment [id number] Follow Up Appointment [id number] CBC + Comprehensive Metabolic Panel [id number] Lab Appointment [id number] Follow Up Appointment [id number] CBC + Comprehensive Metabolic Panel [id number] Lab Appointment [id number] Follow Up Appointment [id number] CBC + Comprehensive Metabolic Panel [id number] Lab Appointment [id number] Follow Up Appointment RETURN TO CLINIC: I reviewed the diagnosis, prognosis, and recommended treatment/procedure options with the patient (and/or their legal employee relations representative), including the potential benefits, risks, side effects and alternative therapies. We also discussed the option of no treatment and the possibility of clinical trial participation, if applicable. All questions were addressed, and they demonstrated understanding. They provided informed consent to proceed with the proposed plan of care. BILLING AND COMPLIANCE: I reviewed external records from providers outside my specialty as summarized above. I spent a total of 50 minutes on this patient?s care on the day of their visit excluding time spent related to any billed procedures. This time includes time spent with the patient as well as time spent documenting in the medical record, reviewing patients records and tests, obtaining history, placing orders, communicating with other healthcare professionals, counseling the patient, family or caregiver, and/or care coordination for the diagnoses above. Electronically Signed by: Lloyd Smith MD T: 4:17 PM CC: William?Hermelinda?, Rodger?Rosa? PCP: Zaid Sanchez Referring: Zaid Sanchez This document was completed utilizing speech recognition software. Grammatical errors, random word insertions, pronoun errors, and incomplete sentences are an occasional consequence of this system due to software limitations, ambient noise, and hardware issues. Any formal questions or concerns about the content, text or information contained within the body of this dictation should be directly addressed to the provider for clarification.
== END 2024-12-08 23:59 | disposition home or self-care (01) ==
LOC: SCTC 14:50
PROVIDERS: PCP Internal Medicine; Referring Provider Internal Medicine; Visit Provider Internal Medicine Hematology & Oncology
DX: Z51.11 Encounter for antineoplastic chemotherapy (principal); C44.42 Squamous cell carcinoma of skin of scalp and neck; D64.9 Anemia, unspecified
CPT/HCPCS: 96413; 99212; A4216; J7030; J7050; J9119; G0463

== ENCOUNTER → 2024-11-20 | Outpatient (CLI) | payer OTHER, MEDICAID, SELFPAY | END | disposition home or self-care (01) | LOC: SWHD 13:16 | PROVIDERS: Visit Provider Student in an Organized Health Care Education/Training Program | DX: S01.90XA Unspecified open wound of unspecified part of head, initial encounter (principal); X58.XXXA Exposure to other specified factors, initial encounter; D48.5 Neoplasm of uncertain behavior of skin; N18.4 Chronic kidney disease, stage 4 (severe); Z79.84 Long term (current) use of oral hypoglycemic drugs; C76.0 Malignant neoplasm of head, face and neck; C49.0 Malignant neoplasm of connective and soft tissue of head, face and neck | CPT/HCPCS: 17250 ==

== ENCOUNTER → 2024-11-22 | Outpatient (CLI) | payer OTHER, MEDICAID, SELFPAY | END | disposition home or self-care (01) | PROVIDERS: PCP Internal Medicine; Referring Provider Internal Medicine; Visit Provider Physician Assistant | DX: S01.90XA Unspecified open wound of unspecified part of head, initial encounter (principal); X58.XXXA Exposure to other specified factors, initial encounter; D48.5 Neoplasm of uncertain behavior of skin; N18.4 Chronic kidney disease, stage 4 (severe); Z79.84 Long term (current) use of oral hypoglycemic drugs; C76.0 Malignant neoplasm of head, face and neck; C49.0 Malignant neoplasm of connective and soft tissue of head, face and neck | CPT/HCPCS: 99213; G0463 ==

== ENCOUNTER → 2024-11-25 | Outpatient (CLI) | payer OTHER, MEDICAID, SELFPAY ==
[2024-11-25 12:02] LABS: Basophils # (Auto) 0.0 Thou/mm3 (0.0-0.2); Basophils % (Auto) 0 % (0-2.5); Eosinophils # (Auto) 0.4 Thou/mm3 (0.0-0.5); Eosinophils % (Auto) 4 % (0-10); Hematocrit 32.0 % (41.0-53.0); Hemoglobin 10.0 g/dL (13.5-16.0); Immature Granulocytes Auto 0.06 Thou/mm3 (0.00-0.00); Lymphocytes # (Auto) 1.9 Thou/mm3 (1.0-4.8); Lymphocytes % (Auto) 17 % (10-50); Mean Corpuscular HGB Conc 31.3 g/dl (31.0-37.0); Mean Corpuscular Hemoglobin 27.9 pg (25.0-35.0); Mean Corpuscular Volume 89 fL (80-100); Monocytes # (Auto) 1.1 Thou/mm3 (0.0-0.8); Monocytes % (Auto) 10 % (0-12); Neutrophils # (Auto) 8.1 Thou/mm3 (1.8-7.7); Neutrophils % (Auto) 69 % (37-80); Nucleated Red Blood Cell # 0.00 Thou/mm3 (0.00-0.00); Nucleated Red Blood Cell % 0 /100 WBC (0); Platelet Count 335 Thou/mm3 (140-440); RDW Standard Deviation 51.5 fL (35.1-43.9); Red Blood Count 3.59 Miln/mm3 (4.50-5.90); White Blood Count 11.7 Thou/mm3 (3.8-10.6)
[2024-11-25 12:08] LABS: Glucose Estimated Average 143 mg/dL (80-131); Hemoglobin A1C 6.6 % Hgb (4.8-6.0)
[2024-11-25 12:13] LABS: Alanine Aminotransferase 22 U/L (10-49); Albumin, Serum 4.3 gm/dL (3.4-4.8); Albumin/Globulin Ratio 1.6 (1.2-2.2); Alkaline Phosphatase 148 U/L (46-116); Anion Gap 8 (7-16); Aspartate Amino Transferase 10 U/L (0-34); BUN/Creatinine Ratio 22 Ratio (12-20); Bilirubin,Total 0.3 mg/dL (0.3-1.2); Blood Urea Nitrogen 57 mg/dL (9-23); Calcium 11.0 mg/dL (8.3-10.6); Calcium (Corrected) 11.0 mg/dL (8.5-10.1); Carbon Dioxide 26.7 mMol/L (20.0-31.0); Chloride 102 mMol/L (98-107); Creatinine (Component) 2.6 mg/dL (0.6-1.3); Globulin 2.7 gm/dL (2.3-3.5); Glucose 111 mg/dL (74-106); Osmolality,Calculated 290 (275-295); Potassium 5.5 mMol/L (3.4-5.1); Sodium 137 mMol/L (136-145); Thyroid Stimulating Hormone 3.05 uIU/mL (0.55-4.78); Total Protein 7.0 gm/dL (5.7-8.2); eGFR 25 See Note
== END | disposition home or self-care (01) ==
LOC: COPL 10:04
PROVIDERS: PCP Internal Medicine; Referring Provider Internal Medicine Hematology & Oncology; Visit Provider Student in an Organized Health Care Education/Training Program
DX: C44.90 Unspecified malignant neoplasm of skin, unspecified (principal); E11.622 Type 2 diabetes mellitus with other skin ulcer; E03.9 Hypothyroidism, unspecified
CPT/HCPCS: 36415; 80053; 83036; 84443; 85025

== ENCOUNTER 2024-11-27 14:11 | Emergency (ER) | payer OTHER, MEDICAID, SELFPAY ==
--- NOTE | 2024-11-27 14:22 | PD.EDSKIN ---
ED Skin Abcess FB-RME/HPI General Chief complaint: Head Injury Stated complaint: HEAD BLEED Time Seen by Provider: 11/27/24 14:16 Source: patient and EMS Arrival date/time: 11/27/24 14:11 Mode of arrival: EMS Limitations: no limitations RME / HPI RME / HPI narrative: Patient is a 74-year-old male with a history of hypertension, diabetes, hyperlipidemia, and BPH. He also has melanoma. He was at a cancer treatment center getting his melanoma looked at when he developed scalp bleeding. EMS was contacted as the bleeding was difficult to control and he was routed here. He denies any falls or injuries. Has no vision changes or head pain. He states he is otherwise asymptomatic. Related Data Home Medications ?Medication ?Instructions ?Recorded ?Confirmed benazepril 40 mg tablet 40 mg PO BID 03/08/18 06/21/21 amlodipine 10 mg tablet 10 mg PO DAILY 06/18/21 06/21/21 famotidine 20 mg tablet 20 mg PO DAILY 06/18/21 06/21/21 furosemide 40 mg tablet 40 mg PO DAILY 06/18/21 06/21/21 glimepiride 2 mg tablet 2 mg PO QAM 06/18/21 06/21/21 labetalol 200 mg tablet 200 mg PO TID 06/18/21 06/21/21 lovastatin 40 mg tablet 40 mg PO QPM 06/18/21 06/21/21 mycophenolate mofetil 500 mg tablet 500 mg PO BID 06/18/21 06/21/21 oxybutynin chloride 5 mg tablet 5 mg PO QDAY 06/18/21 06/21/21 tamsulosin 0.4 mg capsule 0.4 mg PO DAILY 06/18/21 06/21/21 Previous Rx's ?Medication ?Instructions ?Recorded hydrocodone 5 mg-acetaminophen 325 1 tab PO BID PRN pain #30 tabs 06/07/24 mg tablet Allergies Allergy/AdvReac Type Severity Reaction Status Date / Time No Known Allergies Allergy Verified 10/14/24 16:27 Review of Systems Review of Systems Systems Reviewed: All systems reviewed, normal except as documented ED Exam General Limitations: Present no limitations General appearance: Present alert and in no apparent distress Eye Eye exam: Present normal appearance, PERRL and EOMI ENT ENT exam: Present normal exam, normal oropharynx and mucous membranes moist Neck Neck exam: Present normal inspection, full ROM and trachea midline Chest Chest inspection: Present normal inspection and symmetric chest wall rise Respiratory Respiratory exam: Present normal lung sounds bilaterally Cardiovascular Cardiovascular exam: Present regular rate, normal rhythm and normal heart sounds Abdominal Exam Abdominal exam: Present soft and normal bowel sounds Extremities Exam Extremities exam: Present normal inspection and full ROM Back Exam Back exam: Present normal inspection and full ROM Neurological Exam Neurological exam: Present alert and oriented X3 Psychiatric Psychiatric exam: Present normal affect Skin Skin exam: Present warm, dry, intact and normal color Course Quality Measures none Orders Category Date Time Status CBC Stat Lab 11/27/24 14:47 Completed CMP [Comprehensive Metabolic Panel] Stat Lab 11/27/24 14:47 Completed PT [Prothrombin Time with INR] Stat Lab 11/27/24 14:47 Completed Vital Signs Vital signs: Vital Signs Temperature 97.6 F 11/27/24 14:29 Pulse Rate 81 11/27/24 14:29 Respiratory Rate 18 11/27/24 14:29 Blood Pressure 145/66 H 11/27/24 14:29 Pulse Oximetry (%) 98 11/27/24 14:29 Oxygen Delivery Method Room Air 11/27/24 14:29 Skin / Abscess / Foreign Body MDM Narrative MDM Narrative:: Patient is a 74-year-old male with a history of hypertension, diabetes, hyperlipidemia, and BPH. He also has melanoma. He was at a cancer treatment center getting his melanoma looked at when he developed scalp bleeding. EMS was contacted as the bleeding was difficult to control and he was routed here. He denies any falls or injuries. Has no vision changes or head pain. He states he is otherwise asymptomatic. On exam, patient is nontoxic-appearing in no visible signs distress. He was initially evaluated in the ambulance bay and has dressing over his scalp. Patient was reassessed, he has a erythematous, mass, along the scalp. There is active, nonpulsating, bleeding. A dressing was placed using Surgicel, Xeroform, and a pressure dressing. Hemostasis was achieved. CBC, CMP, PT/INR are unremarkable. Patient was vies to continue wearing the dressing and follow-up with his doctor this week for close recheck. Return here as needed for any worsening emergent changes. Patient data External records reviewed:: [facility] previous records Clinical information provided by:: patient and EMS Social determinants that could affect healthcare access:: none Patient has the following chronic illnesses:: Melanoma, hypertension, diabetes How is presenting disease/condition affected by chronic disease/condition?: exacerbated by Evaluation data The following diagnostics were reviewed and interpreted by me:: lab results Lab and/or radiology exams considered but not ordered:: n/a Interpretation Summary: Workup is unremarkable Medications / Prescriptions Medications or Prescriptions considered but not ordered:: n/a Medication administrations:: n/a Consultations Consultation(s) initiated? (list below): No Diagnosis Skin/Abscess Differential Diagnosis: cellulitis and contact dermatitis Most likely diagnosis given after review of the tests above:: Melanoma bleeding Admission Indicated Admission indicated?: not indicated Admission Request Was there a request for admission?: No Disposition Plan Disposition Plan: Discharge Discharge Attestation Discharge Attestation: The patient and all family members were given an opportunity to ask questions and understood the discharge instructions. Discharge instructions specifically effects, indications for sooner follow up or return to the emergency department, and the expected course of current diagnosis. Patient condition: Stable Discharge Plan Plan Patient Disposition: HOME (Self Care) Patient condition on transfer: Stable Prescriptions/Referrals Prescriptions/Med Rec: No Action benazepril 40 mg Tablet 40 mg PO BID furosemide 40 mg tablet 40 mg PO DAILY labetalol 200 mg tablet 200 mg PO TID Patient Comments: TAKE 1 TABLET BY MOUTH THREE TIMES DAILY lovastatin 40 mg Tablet 40 mg PO QPM glimepiride 2 mg Tablet 2 mg PO QAM mycophenolate mofetil 500 mg tablet 500 mg PO BID Patient Comments: TAKE 1 TABLET BY MOUTH TWICE DAILY tamsulosin 0.4 mg Capsule 0.4 mg PO DAILY amlodipine 10 mg tablet 10 mg PO DAILY Patient Comments: TAKE 1 TABLET BY MOUTH ONCE DAILY oxybutynin chloride 5 mg Tablet 5 mg PO QDAY famotidine 20 mg tablet 20 mg PO DAILY hydrocodone-acetaminophen 5-325 mg tablet 1 tab PO BID MDD 2 PRN (Reason: pain) Qty: 30 0RF Referrals: No Primary/Family,Physician [Primary Care Provider] - In 1 week Problem List Clinical Impression: Encounter for wound re-check Patient/Caregiver Discharge Instructions Education Materials: Wound Care Additional Instructions: - Continue wound dressing. - Follow-up with your primary doctor this week for recheck. - Return here for any worsening changes including increased bleeding. Print Language: Canadian Stand Alone Forms: Graciela Award Info., Patient Portal Info Letter
[2024-11-27 14:29] VITALS: BP 145/66; PULSE 81; RESP 18; TEMP 36.4; O2SAT 98; BMI 19.3
[2024-11-27 14:41] VITALS: PULSE 79; RESP 17; O2SAT 96
[2024-11-27 15:18] LABS: Basophils # (Auto) 0.1 Thou/mm3 (0.0-0.2); Basophils % (Auto) 1 % (0-2.5); Eosinophils # (Auto) 0.5 Thou/mm3 (0.0-0.5); Eosinophils % (Auto) 3 % (0-10); Hematocrit 30.5 % (41.0-53.0); Hemoglobin 9.6 g/dL (13.5-16.0); Immature Granulocytes Auto 0.07 Thou/mm3 (0.00-0.00); Lymphocytes # (Auto) 2.7 Thou/mm3 (1.0-4.8); Lymphocytes % (Auto) 20 % (10-50); Mean Corpuscular HGB Conc 31.5 g/dl (31.0-37.0); Mean Corpuscular Hemoglobin 28.0 pg (25.0-35.0); Mean Corpuscular Volume 89 fL (80-100); Monocytes # (Auto) 1.2 Thou/mm3 (0.0-0.8); Monocytes % (Auto) 9 % (0-12); Neutrophils # (Auto) 8.8 Thou/mm3 (1.8-7.7); Neutrophils % (Auto) 67 % (37-80); Nucleated Red Blood Cell # 0.00 Thou/mm3 (0.00-0.00); Nucleated Red Blood Cell % 0 /100 WBC (0); Platelet Count 299 Thou/mm3 (140-440); RDW Standard Deviation 53.3 fL (35.1-43.9); Red Blood Count 3.43 Miln/mm3 (4.50-5.90); White Blood Count 13.2 Thou/mm3 (3.8-10.6)
[2024-11-27 15:37] LABS: INR 1.1 (0.9-1.3); Prothrombin Time 11.7 Seconds (9.0-12.2)
[2024-11-27 15:43] LABS: Alanine Aminotransferase 19 U/L (10-49); Albumin, Serum 4.4 gm/dL (3.4-4.8); Albumin/Globulin Ratio 1.6 (1.2-2.2); Alkaline Phosphatase 164 U/L (46-116); Anion Gap 10 (7-16); Aspartate Amino Transferase 20 U/L (0-34); BUN/Creatinine Ratio 25 Ratio (12-20); Bilirubin,Total 0.2 mg/dL (0.3-1.2); Blood Urea Nitrogen 60 mg/dL (9-23); Calcium 10.7 mg/dL (8.3-10.6); Calcium (Corrected) 10.7 mg/dL (8.5-10.1); Carbon Dioxide 26.0 mMol/L (20.0-31.0); Chloride 103 mMol/L (98-107); Creatinine (Component) 2.4 mg/dL (0.6-1.3); Estimated Creatinine Clearance 23.0 mL/min (>60); Globulin 2.8 gm/dL (2.3-3.5); Glucose 98 mg/dL (74-106); Osmolality,Calculated 294 (275-295); Potassium 5.2 mMol/L (3.4-5.1); Sodium 139 mMol/L (136-145); Total Protein 7.2 gm/dL (5.7-8.2); eGFR 27 See Note
--- NOTE | 2024-11-27 17:58 | PC.ADMIT ---
neuro ophthalmologist Leeann consulted [facility] regarding transportation back home for the patient. ACADEMIC SUPPORT DIRECTOR arranged transportation for the patient to return home via [facility].
== END 2024-11-27 17:51 | disposition home or self-care (01) ==
PROVIDERS: Physician Assistant Medical; Emergency Provider Emergency Medicine
DX: R22.0 Localized swelling, mass and lump, head (principal); R58 Hemorrhage, not elsewhere classified; E11.9 Type 2 diabetes mellitus without complications; E78.5 Hyperlipidemia, unspecified; I10 Essential (primary) hypertension; C43.9 Malignant melanoma of skin, unspecified
CPT/HCPCS: 36415; 80053; 85025; 85610; 99282

== ENCOUNTER → 2024-11-27 | Outpatient (CLI) | payer OTHER, MEDICAID, SELFPAY | END | disposition home or self-care (01) | LOC: SWHD 12:45 | PROVIDERS: PCP Internal Medicine; Referring Provider Internal Medicine; Visit Provider Student in an Organized Health Care Education/Training Program | DX: S01.90XA Unspecified open wound of unspecified part of head, initial encounter (principal); X58.XXXA Exposure to other specified factors, initial encounter; D48.5 Neoplasm of uncertain behavior of skin; N18.4 Chronic kidney disease, stage 4 (severe); C76.0 Malignant neoplasm of head, face and neck; C49.0 Malignant neoplasm of connective and soft tissue of head, face and neck | CPT/HCPCS: 17250; A9270 ==

== ENCOUNTER → 2024-11-29 | Outpatient (CLI) | payer OTHER, SELFPAY | END | disposition home or self-care (01) | PROVIDERS: PCP Internal Medicine; Referring Provider Internal Medicine; Visit Provider Surgery | DX: S01.90XA Unspecified open wound of unspecified part of head, initial encounter (principal); X58.XXXA Exposure to other specified factors, initial encounter; D48.5 Neoplasm of uncertain behavior of skin; N18.4 Chronic kidney disease, stage 4 (severe); C76.0 Malignant neoplasm of head, face and neck; C49.0 Malignant neoplasm of connective and soft tissue of head, face and neck | CPT/HCPCS: 99213; A9270; G0463 ==

== ENCOUNTER → 2024-12-02 | Outpatient (CLI) | payer OTHER, SELFPAY ==
[2024-12-02 14:43] LABS: Basophils # (Auto) 0.0 Thou/mm3 (0.0-0.2); Basophils % (Auto) 0 % (0-2.5); Eosinophils # (Auto) 0.3 Thou/mm3 (0.0-0.5); Eosinophils % (Auto) 3 % (0-10); Hematocrit 27.1 % (41.0-53.0); Immature Granulocytes Auto 0.02 Thou/mm3 (0.00-0.00); Lymphocytes # (Auto) 1.9 Thou/mm3 (1.0-4.8); Lymphocytes % (Auto) 19 % (10-50); Mean Corpuscular HGB Conc 32.1 g/dl (31.0-37.0); Mean Corpuscular Hemoglobin 28.5 pg (25.0-35.0); Mean Corpuscular Volume 89 fL (80-100); Monocytes # (Auto) 0.7 Thou/mm3 (0.0-0.8); Monocytes % (Auto) 7 % (0-12); Neutrophils # (Auto) 7.0 Thou/mm3 (1.8-7.7); Neutrophils % (Auto) 70 % (37-80); Nucleated Red Blood Cell # 0.00 Thou/mm3 (0.00-0.00); Nucleated Red Blood Cell % 0 /100 WBC (0); Platelet Count 255 Thou/mm3 (140-440); RDW Standard Deviation 53.0 fL (35.1-43.9); Red Blood Count 3.05 Miln/mm3 (4.50-5.90); White Blood Count 10.0 Thou/mm3 (3.8-10.6)
[2024-12-02 14:54] LABS: Hemoglobin 8.7 g/dL (13.5-16.0)
[2024-12-02 14:59] LABS: Alanine Aminotransferase 17 U/L (10-49); Albumin, Serum 3.9 gm/dL (3.4-4.8); Albumin/Globulin Ratio 1.3 (1.2-2.2); Alkaline Phosphatase 125 U/L (46-116); Anion Gap 10 (7-16); Aspartate Amino Transferase 17 U/L (0-34); BUN/Creatinine Ratio 18 Ratio (12-20); Bilirubin,Total 0.3 mg/dL (0.3-1.2); Blood Urea Nitrogen 42 mg/dL (9-23); Calcium 10.1 mg/dL (8.3-10.6); Calcium (Corrected) 10.2 mg/dL (8.5-10.1); Carbon Dioxide 25.4 mMol/L (20.0-31.0); Chloride 104 mMol/L (98-107); Creatinine (Component) 2.4 mg/dL (0.6-1.3); Globulin 3.0 gm/dL (2.3-3.5); Glucose 114 mg/dL (74-106); Osmolality,Calculated 289 (275-295); Potassium 4.7 mMol/L (3.4-5.1); Sodium 139 mMol/L (136-145); Thyroid Stimulating Hormone 3.26 uIU/mL (0.55-4.78); Total Protein 6.9 gm/dL (5.7-8.2); eGFR 27 See Note
== END | disposition home or self-care (01) ==
LOC: SCTO 13:46
PROVIDERS: PCP Internal Medicine; Referring Provider Internal Medicine Hematology & Oncology; Visit Provider Internal Medicine Hematology & Oncology
DX: E03.9 Hypothyroidism, unspecified (principal); C44.90 Unspecified malignant neoplasm of skin, unspecified
CPT/HCPCS: 36415; 80053; 84443; 85025

== ENCOUNTER → 2024-12-04 | Outpatient (CLI) | payer OTHER, SELFPAY | END | disposition home or self-care (01) | LOC: SWHD 12:51 | PROVIDERS: PCP Internal Medicine; Referring Provider Internal Medicine; Visit Provider Student in an Organized Health Care Education/Training Program | DX: S01.90XA Unspecified open wound of unspecified part of head, initial encounter (principal); X58.XXXA Exposure to other specified factors, initial encounter; D48.5 Neoplasm of uncertain behavior of skin; C48.0 Malignant neoplasm of retroperitoneum; C76.0 Malignant neoplasm of head, face and neck | CPT/HCPCS: 99213; A9270; G0463 ==

== ENCOUNTER → 2024-12-06 | Outpatient (CLI) | payer OTHER, SELFPAY | END | disposition home or self-care (01) | LOC: SWHD 13:04 | PROVIDERS: PCP Internal Medicine; Referring Provider Internal Medicine; Visit Provider Surgery | DX: S01.90XA Unspecified open wound of unspecified part of head, initial encounter (principal); X58.XXXA Exposure to other specified factors, initial encounter; D48.5 Neoplasm of uncertain behavior of skin; C76.0 Malignant neoplasm of head, face and neck; C49.0 Malignant neoplasm of connective and soft tissue of head, face and neck | CPT/HCPCS: 99213; G0463 ==

== ENCOUNTER → 2024-12-11 | Outpatient (CLI) | payer OTHER, SELFPAY | END | disposition home or self-care (01) | LOC: SWHD 13:05 | PROVIDERS: PCP Internal Medicine; Referring Provider Internal Medicine; Visit Provider Student in an Organized Health Care Education/Training Program | DX: S01.90XA Unspecified open wound of unspecified part of head, initial encounter (principal); X58.XXXA Exposure to other specified factors, initial encounter; D48.5 Neoplasm of uncertain behavior of skin; C76.0 Malignant neoplasm of head, face and neck; C49.0 Malignant neoplasm of connective and soft tissue of head, face and neck | CPT/HCPCS: 99213; A9270; G0463 ==

== ENCOUNTER → 2024-12-13 | Outpatient (CLI) | payer OTHER, SELFPAY | END | disposition home or self-care (01) | LOC: SWHD 12:37 | PROVIDERS: PCP Internal Medicine; Referring Provider Internal Medicine; Visit Provider Surgery | DX: S01.90XA Unspecified open wound of unspecified part of head, initial encounter (principal); X58.XXXA Exposure to other specified factors, initial encounter; D48.5 Neoplasm of uncertain behavior of skin; C76.0 Malignant neoplasm of head, face and neck; C49.0 Malignant neoplasm of connective and soft tissue of head, face and neck | CPT/HCPCS: 99213; G0463 ==

== ENCOUNTER → 2024-12-16 | Outpatient (CLI) | payer OTHER, MEDICAID, SELFPAY ==
[2024-12-16 14:08] LABS: Basophils # (Auto) 0.0 Thou/mm3 (0.0-0.2); Basophils % (Auto) 0 % (0-2.5); Eosinophils # (Auto) 0.3 Thou/mm3 (0.0-0.5); Eosinophils % (Auto) 4 % (0-10); Hematocrit 25.4 % (41.0-53.0); Hemoglobin 7.9 g/dL (13.5-16.0); Immature Granulocytes Auto 0.05 Thou/mm3 (0.00-0.00); Lymphocytes # (Auto) 1.8 Thou/mm3 (1.0-4.8); Lymphocytes % (Auto) 19 % (10-50); Mean Corpuscular HGB Conc 31.1 g/dl (31.0-37.0); Mean Corpuscular Hemoglobin 27.9 pg (25.0-35.0); Mean Corpuscular Volume 90 fL (80-100); Monocytes # (Auto) 0.9 Thou/mm3 (0.0-0.8); Monocytes % (Auto) 10 % (0-12); Neutrophils # (Auto) 6.4 Thou/mm3 (1.8-7.7); Neutrophils % (Auto) 67 % (37-80); Nucleated Red Blood Cell # 0.00 Thou/mm3 (0.00-0.00); Nucleated Red Blood Cell % 0 /100 WBC (0); Platelet Count 275 Thou/mm3 (140-440); RDW Standard Deviation 49.3 fL (35.1-43.9); Red Blood Count 2.83 Miln/mm3 (4.50-5.90); White Blood Count 9.6 Thou/mm3 (3.8-10.6)
[2024-12-16 14:19] LABS: Alanine Aminotransferase 15 U/L (10-49); Albumin, Serum 4.1 gm/dL (3.4-4.8); Albumin/Globulin Ratio 1.6 (1.2-2.2); Alkaline Phosphatase 133 U/L (46-116); Anion Gap 10 (7-16); Aspartate Amino Transferase 15 U/L (0-34); BUN/Creatinine Ratio 24 Ratio (12-20); Bilirubin,Total 0.2 mg/dL (0.3-1.2); Blood Urea Nitrogen 47 mg/dL (9-23); Calcium 10.3 mg/dL (8.3-10.6); Calcium (Corrected) 10.3 mg/dL (8.5-10.1); Carbon Dioxide 25.8 mMol/L (20.0-31.0); Chloride 103 mMol/L (98-107); Creatinine (Component) 2.0 mg/dL (0.6-1.3); Globulin 2.6 gm/dL (2.3-3.5); Glucose 110 mg/dL (74-106); Osmolality,Calculated 290 (275-295); Potassium 5.1 mMol/L (3.4-5.1); Sodium 139 mMol/L (136-145); Total Protein 6.7 gm/dL (5.7-8.2); eGFR 34 See Note
== END | disposition home or self-care (01) ==
LOC: SCTO 12:35
PROVIDERS: PCP Internal Medicine; Referring Provider Internal Medicine Hematology & Oncology; Visit Provider Internal Medicine Hematology & Oncology
DX: C44.90 Unspecified malignant neoplasm of skin, unspecified (principal)
CPT/HCPCS: 36415; 80053; 85025

== ENCOUNTER → 2024-12-18 | Outpatient (CLI) | payer OTHER, SELFPAY | END | disposition home or self-care (01) | LOC: SWHD 14:31 | PROVIDERS: PCP Internal Medicine; Referring Provider Internal Medicine; Visit Provider Student in an Organized Health Care Education/Training Program | DX: S01.90XA Unspecified open wound of unspecified part of head, initial encounter (principal); X58.XXXA Exposure to other specified factors, initial encounter; D48.5 Neoplasm of uncertain behavior of skin; C49.0 Malignant neoplasm of connective and soft tissue of head, face and neck; C76.0 Malignant neoplasm of head, face and neck | CPT/HCPCS: 99213; G0463 ==

== ENCOUNTER → 2024-12-20 | Outpatient (CLI) | payer OTHER, SELFPAY | END | disposition home or self-care (01) | LOC: SWHD 12:44 | PROVIDERS: PCP Internal Medicine; Referring Provider Internal Medicine; Visit Provider Student in an Organized Health Care Education/Training Program | DX: S01.90XA Unspecified open wound of unspecified part of head, initial encounter (principal); X58.XXXA Exposure to other specified factors, initial encounter; D48.5 Neoplasm of uncertain behavior of skin; C49.0 Malignant neoplasm of connective and soft tissue of head, face and neck; C76.0 Malignant neoplasm of head, face and neck | CPT/HCPCS: 99213; A9270; G0463 ==

== ENCOUNTER → 2024-12-23 | Outpatient (CLI) | payer OTHER, SELFPAY ==
[2024-12-23 14:50] LABS: Basophils # (Auto) 0.0 Thou/mm3 (0.0-0.2); Basophils % (Auto) 0 % (0-2.5); Eosinophils # (Auto) 0.2 Thou/mm3 (0.0-0.5); Eosinophils % (Auto) 2 % (0-10); Hematocrit 21.4 % (41.0-53.0); Immature Granulocytes Auto 0.05 Thou/mm3 (0.00-0.00); Lymphocytes # (Auto) 1.5 Thou/mm3 (1.0-4.8); Lymphocytes % (Auto) 14 % (10-50); Mean Corpuscular HGB Conc 32.2 g/dl (31.0-37.0); Mean Corpuscular Hemoglobin 28.5 pg (25.0-35.0); Mean Corpuscular Volume 88 fL (80-100); Monocytes # (Auto) 1.0 Thou/mm3 (0.0-0.8); Monocytes % (Auto) 9 % (0-12); Neutrophils # (Auto) 8.1 Thou/mm3 (1.8-7.7); Neutrophils % (Auto) 75 % (37-80); Nucleated Red Blood Cell # 0.00 Thou/mm3 (0.00-0.00); Nucleated Red Blood Cell % 0 /100 WBC (0); Platelet Count 271 Thou/mm3 (140-440); RDW Standard Deviation 47.8 fL (35.1-43.9); Red Blood Count 2.42 Miln/mm3 (4.50-5.90); White Blood Count 10.7 Thou/mm3 (3.8-10.6)
[2024-12-23 14:57] LABS: Hemoglobin 6.9 g/dL (13.5-16.0)
[2024-12-23 15:04] LABS: Alanine Aminotransferase 18 U/L (10-49); Albumin, Serum 3.8 gm/dL (3.4-4.8); Albumin/Globulin Ratio 1.7 (1.2-2.2); Alkaline Phosphatase 121 U/L (46-116); Anion Gap 8 (7-16); Aspartate Amino Transferase 16 U/L (0-34); BUN/Creatinine Ratio 21 Ratio (12-20); Bilirubin,Total 0.3 mg/dL (0.3-1.2); Blood Urea Nitrogen 49 mg/dL (9-23); Calcium 9.6 mg/dL (8.3-10.6); Calcium (Corrected) 9.8 mg/dL (8.5-10.1); Carbon Dioxide 25.0 mMol/L (20.0-31.0); Chloride 103 mMol/L (98-107); Creatinine (Component) 2.3 mg/dL (0.6-1.3); Globulin 2.3 gm/dL (2.3-3.5); Glucose 249 mg/dL (74-106); Osmolality,Calculated 292 (275-295); Potassium 5.4 mMol/L (3.4-5.1); Sodium 136 mMol/L (136-145); Total Protein 6.1 gm/dL (5.7-8.2); eGFR 29 See Note
== END | disposition home or self-care (01) ==
LOC: SCTO 13:55
PROVIDERS: PCP Internal Medicine; Referring Provider Internal Medicine Hematology & Oncology; Visit Provider Internal Medicine Hematology & Oncology
DX: C44.90 Unspecified malignant neoplasm of skin, unspecified (principal)
CPT/HCPCS: 36415; 80053; 85025

== ENCOUNTER → 2024-12-27 | Outpatient (CLI) | payer OTHER, SELFPAY | END | disposition home or self-care (01) | LOC: SWHD 12:34 | PROVIDERS: PCP Internal Medicine; Referring Provider Internal Medicine; Visit Provider Student in an Organized Health Care Education/Training Program | DX: S01.90XA Unspecified open wound of unspecified part of head, initial encounter (principal); X58.XXXA Exposure to other specified factors, initial encounter; D48.5 Neoplasm of uncertain behavior of skin; C49.0 Malignant neoplasm of connective and soft tissue of head, face and neck; C76.0 Malignant neoplasm of head, face and neck | CPT/HCPCS: 99213; G0463 ==

== ENCOUNTER → 2024-12-30 | Outpatient (CLI) | payer OTHER, SELFPAY ==
[2024-12-30 13:19] LABS: Basophils # (Auto) 0.0 Thou/mm3 (0.0-0.2); Basophils % (Auto) 0 % (0-2.5); Eosinophils # (Auto) 0.3 Thou/mm3 (0.0-0.5); Eosinophils % (Auto) 3 % (0-10); Hematocrit 30.6 % (41.0-53.0); Hemoglobin 9.8 g/dL (13.5-16.0); Immature Granulocytes Auto 0.03 Thou/mm3 (0.00-0.00); Lymphocytes # (Auto) 1.4 Thou/mm3 (1.0-4.8); Lymphocytes % (Auto) 18 % (10-50); Mean Corpuscular HGB Conc 32.0 g/dl (31.0-37.0); Mean Corpuscular Hemoglobin 27.6 pg (25.0-35.0); Mean Corpuscular Volume 86 fL (80-100); Monocytes # (Auto) 1.1 Thou/mm3 (0.0-0.8); Monocytes % (Auto) 14 % (0-12); Neutrophils # (Auto) 5.2 Thou/mm3 (1.8-7.7); Neutrophils % (Auto) 65 % (37-80); Nucleated Red Blood Cell # 0.00 Thou/mm3 (0.00-0.00); Nucleated Red Blood Cell % 0 /100 WBC (0); Platelet Count 277 Thou/mm3 (140-440); RDW Standard Deviation 46.0 fL (35.1-43.9); Red Blood Count 3.55 Miln/mm3 (4.50-5.90); White Blood Count 8.0 Thou/mm3 (3.8-10.6)
[2024-12-30 13:52] LABS: Alanine Aminotransferase 8 U/L (10-49); Albumin, Serum 3.9 gm/dL (3.4-4.8); Albumin/Globulin Ratio 1.4 (1.2-2.2); Alkaline Phosphatase 106 U/L (46-116); Anion Gap 10 (7-16); Aspartate Amino Transferase < 10 U/L (0-34); BUN/Creatinine Ratio 15 Ratio (12-20); Bilirubin,Total 0.2 mg/dL (0.3-1.2); Blood Urea Nitrogen 34 mg/dL (9-23); Calcium 10.2 mg/dL (8.3-10.6); Calcium (Corrected) 10.3 mg/dL (8.5-10.1); Carbon Dioxide 23.5 mMol/L (20.0-31.0); Chloride 103 mMol/L (98-107); Creatinine (Component) 2.2 mg/dL (0.6-1.3); Globulin 2.7 gm/dL (2.3-3.5); Glucose 101 mg/dL (74-106); Osmolality,Calculated 279 (275-295); Potassium 4.9 mMol/L (3.4-5.1); Sodium 136 mMol/L (136-145); Total Protein 6.6 gm/dL (5.7-8.2); eGFR 30 See Note
== END | disposition home or self-care (01) ==
LOC: SCTO 12:06
PROVIDERS: PCP Internal Medicine; Referring Provider Internal Medicine Hematology & Oncology; Visit Provider Internal Medicine Hematology & Oncology
DX: C44.90 Unspecified malignant neoplasm of skin, unspecified (principal)
CPT/HCPCS: 36415; 80053; 85025

== ENCOUNTER 2024-12-31 07:55 | Outpatient (RCR) | payer OTHER, SELFPAY ==
[2024-12-10 09:46] LABS: Basophils # (Auto) 0.0 Thou/mm3 (0.0-0.2); Basophils % (Auto) 0 % (0-2.5); Eosinophils # (Auto) 0.3 Thou/mm3 (0.0-0.5); Eosinophils % (Auto) 3 % (0-10); Hematocrit 27.6 % (41.0-53.0); Hemoglobin 8.5 g/dL (13.5-16.0); Immature Granulocytes Auto 0.07 Thou/mm3 (0.00-0.00); Lymphocytes # (Auto) 1.8 Thou/mm3 (1.0-4.8); Lymphocytes % (Auto) 19 % (10-50); Mean Corpuscular HGB Conc 30.8 g/dl (31.0-37.0); Mean Corpuscular Hemoglobin 28.1 pg (25.0-35.0); Mean Corpuscular Volume 91 fL (80-100); Monocytes # (Auto) 0.9 Thou/mm3 (0.0-0.8); Monocytes % (Auto) 9 % (0-12); Neutrophils # (Auto) 6.5 Thou/mm3 (1.8-7.7); Neutrophils % (Auto) 68 % (37-80); Nucleated Red Blood Cell # 0.00 Thou/mm3 (0.00-0.00); Nucleated Red Blood Cell % 0 /100 WBC (0); Platelet Count 217 Thou/mm3 (140-440); RDW Standard Deviation 52.7 fL (35.1-43.9); Red Blood Count 3.03 Miln/mm3 (4.50-5.90); White Blood Count 9.6 Thou/mm3 (3.8-10.6)
[2024-12-10 10:12] LABS: Alanine Aminotransferase 11 U/L (10-49); Albumin, Serum 4.2 gm/dL (3.4-4.8); Albumin/Globulin Ratio 1.6 (1.2-2.2); Alkaline Phosphatase 129 U/L (46-116); Anion Gap 11 (7-16); Aspartate Amino Transferase 13 U/L (0-34); BUN/Creatinine Ratio 18 Ratio (12-20); Bilirubin,Total 0.3 mg/dL (0.3-1.2); Blood Urea Nitrogen 46 mg/dL (9-23); Calcium 10.4 mg/dL (8.3-10.6); Calcium (Corrected) 10.4 mg/dL (8.5-10.1); Carbon Dioxide 25.1 mMol/L (20.0-31.0); Chloride 104 mMol/L (98-107); Creatinine (Component) 2.5 mg/dL (0.6-1.3); Globulin 2.7 gm/dL (2.3-3.5); Glucose 115 mg/dL (74-106); Osmolality,Calculated 292 (275-295); Potassium 4.9 mMol/L (3.4-5.1); Sodium 140 mMol/L (136-145); Thyroid Stimulating Hormone 2.67 uIU/mL (0.55-4.78); Total Protein 6.9 gm/dL (5.7-8.2); eGFR 26 See Note
[2024-12-31 09:15] LABS: Thyroid Stimulating Hormone 3.42 uIU/mL (0.55-4.78)
== END 2025-01-07 23:59 | disposition home or self-care (01) ==
LOC: SCTC 07:55
PROVIDERS: Internal Medicine Hematology & Oncology; PCP Internal Medicine; Referring Provider Internal Medicine; Visit Provider Radiology Therapeutic Radiology
DX: Z51.11 Encounter for antineoplastic chemotherapy (principal); C43.4 Malignant melanoma of scalp and neck; D64.9 Anemia, unspecified
CPT/HCPCS: 36430; 80053; 84443; 85025; 86850; 86900; 86901; 86923; 96413; J3490; J7040; J9119; P9016

== ENCOUNTER → 2025-01-01 | Outpatient (CLI) | payer OTHER, SELFPAY | END | disposition home or self-care (01) | LOC: SWHD 12:48 | PROVIDERS: PCP Internal Medicine; Referring Provider Internal Medicine; Visit Provider Student in an Organized Health Care Education/Training Program | DX: S01.90XA Unspecified open wound of unspecified part of head, initial encounter (principal); X58.XXXA Exposure to other specified factors, initial encounter; D48.5 Neoplasm of uncertain behavior of skin; C49.0 Malignant neoplasm of connective and soft tissue of head, face and neck; C76.0 Malignant neoplasm of head, face and neck; Z87.891 Personal history of nicotine dependence | CPT/HCPCS: 99213; G0463 ==

== ENCOUNTER → 2025-01-03 | Outpatient (CLI) | payer OTHER, SELFPAY | END | disposition home or self-care (01) | LOC: SWHD 12:53 | PROVIDERS: PCP Internal Medicine; Referring Provider Internal Medicine; Visit Provider Physician Assistant | DX: S01.90XA Unspecified open wound of unspecified part of head, initial encounter (principal); X58.XXXA Exposure to other specified factors, initial encounter; D48.5 Neoplasm of uncertain behavior of skin; C49.0 Malignant neoplasm of connective and soft tissue of head, face and neck; C76.0 Malignant neoplasm of head, face and neck; Z87.891 Personal history of nicotine dependence | CPT/HCPCS: 99213; G0463 ==

== ENCOUNTER 2025-01-06 10:18 | Emergency (ER) | payer OTHER, SELFPAY ==
[2025-01-06] VITALS (9 sets, daily range): BP systolic 77–140; BP diastolic 49–72; PULSE 70–88; RESP 16–21; TEMP 36.4–36.6; O2SAT 97–100; BMI 23.3
--- NOTE | 2025-01-06 10:36 | PC.NURSE ---
IN TO ASSESS PT. PT BIBA FROM HOME WITH C/O BLEEDING TO A CHRONIC WOUND/TUMOR TO TOP OF HEAD. PT REPORTS WOUND CARE NURSE WAS CHANGING DRESSING THIS MORNING AND COULD NOT CONTROL THE BLEEDING. NOTED BADGES ON HEAD SATURATED WITH BLOOD.
--- NOTE | 2025-01-06 10:40 | PC.NURSE ---
PROVIDER CALLED TO BEDSIDE.
--- NOTE | 2025-01-06 10:41 | PC.NURSE ---
DR. MONTEIRO AT BEDSIDE, ORDERS RECEIVED AND INITIATED.
[2025-01-06] MEDS: TRANEXAMIC ACID INJ 1,000 MG/10 ML VIAL 1000 MG TOP ×2 (10:47→11:08)
--- NOTE | 2025-01-06 11:05 | PC.NURSE ---
DR. MONTEIRO AT BEDSIDE ATTEMPTING TO CONTROL BLEEDING FROM HEAD. PT APPEARS PALE AND STATES I FEEL UNWELL. BP DROPPED TO 77/49. HEAD OF THE BED LOWERED. VERBAL ORDER FROM DR. MONTEIRO FOR EMERGENCY BLOOD TRANSFUSION RECEIVED. ORDER INITIATED.
[2025-01-06] MEDS: LIDOCAINE 1% W/EPI 1:100K 20 ML VIAL INFL (11:08)
--- NOTE | 2025-01-06 11:10 | PC.NURSE ---
1 UNIT OF BLOOD RECEIVED FROM BLOOD BANK, TRANSFUSION INITIATED.
--- NOTE | 2025-01-06 11:14 | PD.EDWOUND ---
ED Wound/Laceration-RME/HPI General Chief Complaint: Wound/Laceration Stated Complaint: HEAD LAC Time Seen by Provider: 01/06/25 10:28 Arrival date/time: 01/06/25 10:18 RME / HPI RME / HPI narrative: 74 year old male with history of scalp cell cancer undergoing chemotherapy presents to the ED BIBA from home for evaluation of bleeding from scalp cancer site. Per medics report, the wound care nurse was changing the dressings when she noted the cancer was oozing blood and unable to stop. In the ED, patient reports the cancer has bled similarly 2-3 times. No other associated complaints reported. Related Data Home Medications ?Medication ?Instructions ?Recorded ?Confirmed benazepril 40 mg tablet 40 mg PO BID 03/08/18 06/21/21 amlodipine 10 mg tablet 10 mg PO DAILY 06/18/21 06/21/21 famotidine 20 mg tablet 20 mg PO DAILY 06/18/21 06/21/21 furosemide 40 mg tablet 40 mg PO DAILY 06/18/21 06/21/21 glimepiride 2 mg tablet 2 mg PO QAM 06/18/21 06/21/21 labetalol 200 mg tablet 200 mg PO TID 06/18/21 06/21/21 lovastatin 40 mg tablet 40 mg PO QPM 06/18/21 06/21/21 mycophenolate mofetil 500 mg tablet 500 mg PO BID 06/18/21 06/21/21 oxybutynin chloride 5 mg tablet 5 mg PO QDAY 06/18/21 06/21/21 tamsulosin 0.4 mg capsule 0.4 mg PO DAILY 06/18/21 06/21/21 Previous Rx's ?Medication ?Instructions ?Recorded hydrocodone 5 mg-acetaminophen 325 1 tab PO BID PRN pain #30 tabs 06/07/ mg tablet Allergies Allergy/AdvReac Type Severity Reaction Status Date / Time No Known Allergies Allergy Verified 10/14/24 16:27 Review of Systems Review of Systems Systems Reviewed: All systems reviewed, normal except as documented Past Medical History Past Medical History NEUROLOGIC: Positive Neurological Disorders and Brain Tumor CARDIAC: Positive Cardiac Disorders, Hypercholesterolemia and Hypertension GASTROINTESTINAL: Positive Gastrointestinal Disorders and Gastroesophageal Reflux Disease GENITOURINARY: Positive Genitourinary Disorders, Renal Disease, Kidney Stones, Dialysis and Benign Prostatic Hyperplasia MUSCULOSKELETAL: Positive Arthritis ENT: Positive Cataracts ENDOCRINE: Positive Endocrine Disorders and Diabetes Mellitus Type 2 HEMATOLOGIC: Positive Blood Disorders and Anemia PSYCHO/SOCIAL: Positive Anxiety OTHER HISTORY: Positive Radiation Therapy, Chicken Pox, Measles and Cancer Family History FAMILY HISTORY: Positive Family Cardiac Disorders Surgical History SURGICAL: Negative Pacemaker Social History SMOKING STATUS: Never smoker SECOND HAND EXPOSURE: No SUBSTANCE USE: does not use ED Exam Narrative Physical exam: Constitutional: Awake, alert, uncomfortable. HEENT: There is a fungating mass at the top of head that is bleeding steadily, oozing blood in multiple areas, with some areas somewhat pulsatile. Scars to area from previous surgery with soft area beneath mass with lack of bone. The tissue of the mass is very friable. EOMI, pupils equal. Neck: Supple CV: Mild tachy rate, normal rhythm, no m/r/g Lungs: CTAB, no w/r/r, no respiratory distress. Neuro: AAOx3, no acute neuro deficit noted. Skin: Warm, dry, intact except as above. Course Course Course Narrative: The patient experienced a likely vasovagal episode during attempts to stop bleeding with patient becoming quite pale and blood pressure dipping as low as 70's systolic and becoming more tachy. The patient was laid flat, and given significant bleeding he had already sustained, decision was made to transfuse a unit of blood. Tissue too friable to suture. Bleeding was controlled after local cautery, injecting lidocaine with epinephrine to site, applying Surgicel, and topical TXA. Will check lab results and continue to monitor. 1315h: The bleeding appears to have ceased. States he has a headache right now since the bleeding. Vitals have improved, the blood pressure and HR normalized. Will check CT and if negative, plan to DC home. 1500h: I reviewed head CT, there is no intracranial hemorrhage. Labs are stable compared to previous. Patient is vitally stable and reports feeling better, Patient is okay for discharge home with instructions to follow up with his oncologist and home health nurse for repeat wound dressing change. Strict return precautions were outlined. Patient was discharged home. Quality Measures none Orders Category Date Time Status Set Up Suture Tray STAT Care 01/06/25 10:[address] head/brain wo con Stat Exams 01/06/25 13:16 Completed BMP [Basic Metabolic Panel] Stat Lab 01/06/25 13:25 Completed CBC Stat Lab 01/06/25 11:10 Completed CBC Stat Lab 01/06/25 13:25 Completed CMP [Comprehensive Metabolic Panel] Stat Lab 01/06/25 11:10 Completed Type and Screen Stat Lab 01/06/25 11:10 Completed rbc [Red Blood Cells] Stat Lab 01/06/25 11:10 Completed Lidocaine 1% W/Epi 1:100K 20Ml [Xylocaine 1% w/Epi 1: Med 01/06/25 10:54 Discontinued 100K 20 ml] 20 ml INFL X1 ONE Silver Nitrate Applicators Med 01/06/25 10:58 Discontinued 1 appl TOP X1 ONE Tranexamic Acid 1,000 mg Ivpb [Tranexamic Acid Ivpb] Med 01/06/25 11:00 Discontinued 1,000 mg in 100 ml IV X1 Tranexamic Acid Inj Med 01/06/25 10:57 Discontinued 1,000 mg .ROUTE .STK-MED ONE Tranexamic Acid Inj Med 01/06/25 10:52 Stop Req 1,000 mg IV X1 ONE Tranexamic Acid Inj Med 01/06/25 10:40 Discontinued 1,000 mg TOP NOW ONE Tranexamic Acid Inj Med 01/06/25 10:59 Discontinued 1,000 mg TOP X1 ONE Tranexamic Acid Inj Med 01/06/25 11:00 Discontinued 1,000 mg TOP X1 ONE Vital Signs Vital signs: Vital Signs Temperature 97.5 F 01/06/25 10:23 Pulse Rate 85 01/06/25 10:23 Respiratory Rate 18 01/06/25 10:23 Blood Pressure 133/59 H 01/06/25 10:23 Pulse Oximetry (%) 98 01/06/25 10:23 Oxygen Delivery Method Room Air 01/06/25 10:23 Pulse ox is 98% on room air which is adequate. Wound / Laceration MDM Narrative MDM Narrative:: Edel Fregoso am scribing for and in the presence of Dr. Marie. Patient data External records reviewed:: [facility] previous records and EMS form Clinical information provided by:: patient and EMS Social determinants that could affect healthcare access:: none Patient has the following chronic illnesses:: scalp cell cancer undergoing chemotherapy How is presenting disease/condition affected by chronic disease/condition?: exacerbated by Evaluation data The following diagnostics were reviewed and interpreted by me:: lab results and radiology exam(s) Lab and/or radiology exams considered but not ordered:: None Interpretation Summary: Ordering Physician: Gerri Marie MD Date of Service: 01/06/25 Procedure(s): CT head/brain wo con Accession Number(s): [id number] cc: Barrett Shelby MD; Gerri Marie MD; Zaid Sanchez MD~ Examination: CT brain head without contrast. 2-D sagittal coronal reconstructions Date and time of exam:January 06, 2025, 1402 hours INDICATIONS: Onset generalized head pain today CTDI: vol (mGy):52.5 DLP: (mGycm):1163 Technique: Multiple CT axial sections of the brain have been obtained, 5 mm slice thickness. Contrast has not been administered. 2-D sagittal, coronal reconstructions have been obtained Low dose protocols were performed. One or more of the following dose reduction techniques were used; automated exposure control, adjustment of the mA and/or KV according to patient size, use of iterative reconstruction technique. Findings: No significant ventricular enlargement. Large left frontal scalp tumor mass, 7.7 x 5.7 x 8.7 cm which is destroying the left frontal bone This tumor mass is extending into the cranium, external to the left and right frontal lobe, the tumor mass thickness external to the left frontal lobe measures at least 21 mm The ventricles are not enlarged No midline shift lateral ventricles Fourth ventricle midline IMPRESSION: Large left frontal scalp tumor mass 7.7 x 5.7 x 8.7 cm which is destroying the left frontal bone extending intracranial, external to both right and left frontal lobes The tumor mass external to the left frontal lobe measures at least 21 mm in thickness Dictated By: Barrett Shelby MD Signed By: <Electronically signed by Barrett Shelby MD in OV> 01/06/25 1415 Medications / Prescriptions Medications or Prescriptions considered but not ordered:: None Medication administrations:: Medication Administration History Discontinued Medications Tranexamic Acid (Tranexamic Acid Ivpb) 1,000 mg in 100 mls @ 300 mls/hr IV X1 ONE Stop: 01/06/25 11:19 Last Admin: 01/06/25 11:01 Dose: Not Given Documented By: VG Non-Admin Reason: Discontinued Lidocaine/Epinephrine (Lidocaine 1% W/Epi 1:100k 20 Ml Vial) 20 ml INFL X1 ONE Stop: 01/06/25 10:55 Last Admin: 01/06/25 11:08 Dose: 20 ml Documented By: ARNULFO Silver Nitrate (Silver Nitrate 1 Appl Ea) 1 appl TOP X1 ONE Stop: 01/06/25 10:59 Last Admin: 01/06/25 13:01 Dose: Not Given Documented By: VG Non-Admin Reason: Cancelled by Provider Tranexamic Acid (Tranexamic Acid Inj 1,000 Mg/10 Ml Vial) 1,000 mg TOP NOW ONE Stop: 01/06/25 10:41 Last Admin: 01/06/25 10:47 Dose: 1,000 mg Documented By: ARNULFO Tranexamic Acid (Tranexamic Acid Inj 1,000 Mg/10 Ml Vial) 1,000 mg IV X1 ONE Stop: 01/06/25 10:53 Last Admin: 01/06/25 11:09 Dose: Not Given Documented By: VG Non-Admin Reason: Discontinued Tranexamic Acid (Tranexamic Acid Inj 1,000 Mg/10 Ml Vial) 1,000 mg TOP X1 ONE Stop: 01/06/25 11:00 Last Admin: 01/06/25 11:08 Dose: 1,000 mg Documented By: ARNULFO Tranexamic Acid (Tranexamic Acid Inj 1,000 Mg/10 Ml Vial) Confirm Administered Dose 1,000 mg .ROUTE .STK-MED ONE Stop: 01/06/25 10:58 Last Admin: 01/06/25 11:08 Dose: Not Given Documented By: ARNULFO Non-Admin Reason: Duplicate Medication on eMAR Tranexamic Acid (Tranexamic Acid Inj 1,000 Mg/10 Ml Vial) 1,000 mg TOP X1 ONE Stop: 01/06/25 11:01 Last Admin: 01/06/25 11:09 Dose: Not Given Documented By: VG Non-Admin Reason: Discontinued See above Consultations Consultation(s) initiated? (list below): No Diagnosis Wound Differential Diagnosis: laceration, abrasion, avulsion of skin and other Most likely diagnosis given after review of the tests above:: Scalp tumor hemorrhage, vasovagal presyncope Admission Indicated Admission indicated?: not indicated Admission Request Was there a request for admission?: No Disposition Plan Disposition Plan: Discharge Discharge Attestation Discharge Attestation: The patient and all family members were given an opportunity to ask questions and understood the discharge instructions. Discharge instructions specifically effects, indications for sooner follow up or return to the emergency department, and the expected course of current diagnosis. Patient condition: Stable Critical Care Time Critical Care Time Critical Care Time: Yes Total Critical Care Time (min.): 35 Attestation: The high probability of sudden, clinically significant deterioration in the patient's condition required the highest level of my preparedness to intervene urgently. The services I provided to this patient were to treat and/or prevent clinically significant deterioration. Services included the following: chart data review, reviewing nursing notes and/or old charts, documentation time, financial consultant collaboration regarding findings and treatment options, medication orders and management, direct patient care, vital sign assessments and ordering, interpreting and reviewing diagnostic studies and lab tests. Aggregate critical care time includes only time during which I was engaged in work directly related to the patient's care, as described above, whether at bedside or elsewhere in the Emergency Department. It did not include time spent performing other reported procedures or the services of residents, students, nurses or physician assistants. Discharge Plan Plan Patient Disposition: HOME (Self Care) Patient condition on transfer: Stable Prescriptions/Referrals Prescriptions/Med Rec: No Action benazepril 40 mg Tablet 40 mg PO BID furosemide 40 mg tablet 40 mg PO DAILY labetalol 200 mg tablet 200 mg PO TID Patient Comments: TAKE 1 TABLET BY MOUTH THREE TIMES DAILY lovastatin 40 mg Tablet 40 mg PO QPM glimepiride 2 mg Tablet 2 mg PO QAM mycophenolate mofetil 500 mg tablet 500 mg PO BID Patient Comments: TAKE 1 TABLET BY MOUTH TWICE DAILY tamsulosin 0.4 mg Capsule 0.4 mg PO DAILY amlodipine 10 mg tablet 10 mg PO DAILY Patient Comments: TAKE 1 TABLET BY MOUTH ONCE DAILY oxybutynin chloride 5 mg Tablet 5 mg PO QDAY famotidine 20 mg tablet 20 mg PO DAILY hydrocodone-acetaminophen 5-325 mg tablet 1 tab PO BID MDD 2 PRN (Reason: pain) Qty: 30 0RF Referrals: No Primary/Family,Physician [Referring Provider] - 01/09/25 Referral Note: Call your oncologist within the next few days for follow up. Zaid Sanchez MD [Primary Care Provider, Nephrology] - In 1 week Problem List Clinical Impression: Hemorrhage, Mass of scalp, Anemia Patient/Caregiver Discharge Instructions Education Materials: Anemia During Cancer, First Aid: Bleeding Additional Instructions: Some additional general health principles that may benefit you: ?Nutrition, Exercise, Water, Sunlight, [place], Air, Rest and Trust in God. You may also enjoy the [employer] podcasts: [email or web address] Print Language: [place] Stand Alone Forms: Graciela Award Info., Patient Portal Info Letter
[2025-01-06 11:24] LABS: Basophils % (Auto) 0 % (0-2.5); Eosinophils # (Auto) 0.2 Thou/mm3 (0.0-0.5); Eosinophils % (Auto) 2 % (0-10); Mean Corpuscular Volume 85 fL (80-100); Monocytes % (Auto) 9 % (0-12); Nucleated Red Blood Cell # 0.00 Thou/mm3 (0.00-0.00); Nucleated Red Blood Cell % 0 /100 WBC (0)
[2025-01-06 11:25] LABS: Basophils # (Auto) 0.0 Thou/mm3 (0.0-0.2); Hematocrit 23.2 % (41.0-53.0); Immature Granulocytes Auto 0.11 Thou/mm3 (0.00-0.00); Lymphocytes # (Auto) 3.4 Thou/mm3 (1.0-4.8); Lymphocytes % (Auto) 25 % (10-50); Mean Corpuscular HGB Conc 32.3 g/dl (31.0-37.0); Mean Corpuscular Hemoglobin 27.6 pg (25.0-35.0); Monocytes # (Auto) 1.2 Thou/mm3 (0.0-0.8); Neutrophils # (Auto) 8.7 Thou/mm3 (1.8-7.7); Neutrophils % (Auto) 63 % (37-80); Platelet Count 325 Thou/mm3 (140-440); RDW Standard Deviation 44.0 fL (35.1-43.9); Red Blood Count 2.72 Miln/mm3 (4.50-5.90); White Blood Count 13.7 Thou/mm3 (3.8-10.6)
[2025-01-06 11:42] LABS: Alanine Aminotransferase 12 U/L (10-49); Albumin, Serum 3.7 gm/dL (3.4-4.8); Albumin/Globulin Ratio 1.5 (1.2-2.2); Alkaline Phosphatase 118 U/L (46-116); Anion Gap 10 (7-16); Aspartate Amino Transferase < 10 U/L (0-34); BUN/Creatinine Ratio 21 Ratio (12-20); Bilirubin,Total 0.2 mg/dL (0.3-1.2); Blood Urea Nitrogen 44 mg/dL (9-23); Calcium 10.0 mg/dL (8.3-10.6); Calcium (Corrected) 10.2 mg/dL (8.5-10.1); Carbon Dioxide 23.8 mMol/L (20.0-31.0); Chloride 105 mMol/L (98-107); Creatinine (Component) 2.1 mg/dL (0.6-1.3); Estimated Creatinine Clearance 26.4 mL/min (>60); Globulin 2.5 gm/dL (2.3-3.5); Glucose 199 mg/dL (74-106); Osmolality,Calculated 294 (275-295); Potassium 4.8 mMol/L (3.4-5.1); Sodium 139 mMol/L (136-145); Total Protein 6.2 gm/dL (5.7-8.2); eGFR 32 See Note
[2025-01-06 13:09] LABS: Hemoglobin 7.5 g/dL (13.5-16.0)
--- NOTE | 2025-01-06 13:16 | XR_ITS ---
Examination: CT brain head without contrast. 2-D sagittal coronal reconstructions Date and time of exam:January 06, 2025, 1402 hours INDICATIONS: Onset generalized head pain today CTDI: vol (mGy):52.5 DLP: (mGycm):1163 Technique: Multiple CT axial sections of the brain have been obtained, 5 mm slice thickness. Contrast has not been administered. 2-D sagittal, coronal reconstructions have been obtained Low dose protocols were performed. One or more of the following dose reduction techniques were used; automated exposure control, adjustment of the mA and/or KV according to patient size, use of iterative reconstruction technique. Findings: No significant ventricular enlargement. Large left frontal scalp tumor mass, 7.7 x 5.7 x 8.7 cm which is destroying the left frontal bone This tumor mass is extending into the cranium, external to the left and right frontal lobe, the tumor mass thickness external to the left frontal lobe measures at least 21 mm The ventricles are not enlarged No midline shift lateral ventricles Fourth ventricle midline IMPRESSION: Large left frontal scalp tumor mass 7.7 x 5.7 x 8.7 cm which is destroying the left frontal bone extending intracranial, external to both right and left frontal lobes The tumor mass external to the left frontal lobe measures at least 21 mm in thickness
[2025-01-06 13:40] LABS: Basophils # (Auto) 0.0 Thou/mm3 (0.0-0.2); Basophils % (Auto) 0 % (0-2.5); Eosinophils # (Auto) 0.1 Thou/mm3 (0.0-0.5); Eosinophils % (Auto) 1 % (0-10); Hematocrit 25.9 % (41.0-53.0); Immature Granulocytes Auto 0.08 Thou/mm3 (0.00-0.00); Lymphocytes # (Auto) 1.2 Thou/mm3 (1.0-4.8); Lymphocytes % (Auto) 10 % (10-50); Mean Corpuscular HGB Conc 31.7 g/dl (31.0-37.0); Mean Corpuscular Hemoglobin 27.7 pg (25.0-35.0); Mean Corpuscular Volume 88 fL (80-100); Monocytes # (Auto) 0.9 Thou/mm3 (0.0-0.8); Monocytes % (Auto) 7 % (0-12); Neutrophils # (Auto) 10.4 Thou/mm3 (1.8-7.7); Neutrophils % (Auto) 82 % (37-80); Nucleated Red Blood Cell # 0.00 Thou/mm3 (0.00-0.00); Nucleated Red Blood Cell % 0 /100 WBC (0); Platelet Count 269 Thou/mm3 (140-440); RDW Standard Deviation 45.8 fL (35.1-43.9); Red Blood Count 2.96 Miln/mm3 (4.50-5.90); White Blood Count 12.7 Thou/mm3 (3.8-10.6)
[2025-01-06 13:44] LABS: Hemoglobin 8.2 g/dL (13.5-16.0)
[2025-01-06 13:51] LABS: Anion Gap 9 (7-16); BUN/Creatinine Ratio 20 Ratio (12-20); Blood Urea Nitrogen 39 mg/dL (9-23); Calcium 9.6 mg/dL (8.3-10.6); Carbon Dioxide 21.5 mMol/L (20.0-31.0); Chloride 107 mMol/L (98-107); Creatinine (Component) 2.0 mg/dL (0.6-1.3); Estimated Creatinine Clearance 27.8 mL/min (>60); Glucose 209 mg/dL (74-106); Osmolality,Calculated 289 (275-295); Potassium 4.8 mMol/L (3.4-5.1); Sodium 137 mMol/L (136-145); eGFR 34 See Note
--- NOTE | 2025-01-06 17:00 | PC.NURSE ---
DRY BLOOD CLEANED OFF PTS HEAD, KERLIX DRESSING REPLACED. DRESSING DRY AND INTACT PRIOR TO D/C. FAMILY MEMBER HERE TO TOUR AGENT PT. PT WALKED OUT TO VEHICLE AND TOLERATED WELL.
== END 2025-01-06 17:04 | disposition home or self-care (01) ==
PROVIDERS: Emergency Provider Family Medicine; PCP Internal Medicine
DX: D64.9 Anemia, unspecified (principal); R58 Hemorrhage, not elsewhere classified; C44.40 Unspecified malignant neoplasm of skin of scalp and neck
CPT/HCPCS: 36415; 36430; 70450; 80048; 80053; 85025; 86850; 86900; 86901; 86920; 99284; J3490; P9016

== ENCOUNTER → 2025-01-07 | Outpatient (CLI) | payer OTHER, SELFPAY ==
[2025-01-07 10:19] LABS: Basophils # (Auto) 0.0 Thou/mm3 (0.0-0.2); Basophils % (Auto) 0 % (0-2.5); Eosinophils # (Auto) 0.2 Thou/mm3 (0.0-0.5); Eosinophils % (Auto) 3 % (0-10); Hematocrit 22.6 % (41.0-53.0); Immature Granulocytes Auto 0.06 Thou/mm3 (0.00-0.00); Lymphocytes # (Auto) 1.8 Thou/mm3 (1.0-4.8); Lymphocytes % (Auto) 20 % (10-50); Mean Corpuscular HGB Conc 31.9 g/dl (31.0-37.0); Mean Corpuscular Hemoglobin 28.1 pg (25.0-35.0); Mean Corpuscular Volume 88 fL (80-100); Monocytes # (Auto) 1.0 Thou/mm3 (0.0-0.8); Monocytes % (Auto) 11 % (0-12); Neutrophils # (Auto) 6.1 Thou/mm3 (1.8-7.7); Neutrophils % (Auto) 66 % (37-80); Nucleated Red Blood Cell # 0.00 Thou/mm3 (0.00-0.00); Nucleated Red Blood Cell % 0 /100 WBC (0); Platelet Count 280 Thou/mm3 (140-440); RDW Standard Deviation 46.9 fL (35.1-43.9); Red Blood Count 2.56 Miln/mm3 (4.50-5.90); White Blood Count 9.3 Thou/mm3 (3.8-10.6)
[2025-01-07 10:43] LABS: Alanine Aminotransferase 13 U/L (10-49); Albumin, Serum 3.7 gm/dL (3.4-4.8); Albumin/Globulin Ratio 1.4 (1.2-2.2); Alkaline Phosphatase 96 U/L (46-116); Anion Gap 10 (7-16); Aspartate Amino Transferase 13 U/L (0-34); BUN/Creatinine Ratio 22 Ratio (12-20); Bilirubin,Total 0.3 mg/dL (0.3-1.2); Blood Urea Nitrogen 49 mg/dL (9-23); Calcium 9.9 mg/dL (8.3-10.6); Calcium (Corrected) 10.1 mg/dL (8.5-10.1); Carbon Dioxide 23.5 mMol/L (20.0-31.0); Chloride 104 mMol/L (98-107); Creatinine (Component) 2.2 mg/dL (0.6-1.3); Globulin 2.7 gm/dL (2.3-3.5); Glucose 123 mg/dL (74-106); Osmolality,Calculated 287 (275-295); Potassium 5.0 mMol/L (3.4-5.1); Sodium 137 mMol/L (136-145); Thyroid Stimulating Hormone 4.11 uIU/mL (0.55-4.78); Total Protein 6.4 gm/dL (5.7-8.2); eGFR 30 See Note
[2025-01-07 10:58] LABS: Hemoglobin 7.2 g/dL (13.5-16.0)
== END | disposition home or self-care (01) ==
PROVIDERS: PCP Internal Medicine; Referring Provider Internal Medicine Hematology & Oncology; Visit Provider Internal Medicine Hematology & Oncology
DX: C44.90 Unspecified malignant neoplasm of skin, unspecified (principal); E03.9 Hypothyroidism, unspecified
CPT/HCPCS: 36415; 80053; 84443; 85025

== ENCOUNTER → 2025-01-10 | Outpatient (CLI) | payer OTHER, SELFPAY | END | disposition home or self-care (01) | LOC: SWHD 13:08 | PROVIDERS: PCP Internal Medicine; Referring Provider Internal Medicine; Visit Provider Student in an Organized Health Care Education/Training Program | DX: S01.90XA Unspecified open wound of unspecified part of head, initial encounter (principal); X58.XXXA Exposure to other specified factors, initial encounter; D48.5 Neoplasm of uncertain behavior of skin; C49.0 Malignant neoplasm of connective and soft tissue of head, face and neck; C76.0 Malignant neoplasm of head, face and neck; Z87.891 Personal history of nicotine dependence | CPT/HCPCS: 99213; G0463 ==

== ENCOUNTER → 2025-01-13 | Outpatient (CLI) | payer OTHER, SELFPAY ==
[2025-01-13 14:49] LABS: Basophils # (Auto) 0.1 Thou/mm3 (0.0-0.2); Basophils % (Auto) 0 % (0-2.5); Eosinophils # (Auto) 0.1 Thou/mm3 (0.0-0.5); Eosinophils % (Auto) 1 % (0-10); Immature Granulocytes Auto 0.07 Thou/mm3 (0.00-0.00); Lymphocytes # (Auto) 1.5 Thou/mm3 (1.0-4.8); Lymphocytes % (Auto) 13 % (10-50); Mean Corpuscular HGB Conc 31.5 g/dl (31.0-37.0); Mean Corpuscular Hemoglobin 27.4 pg (25.0-35.0); Mean Corpuscular Volume 87 fL (80-100); Monocytes # (Auto) 1.1 Thou/mm3 (0.0-0.8); Monocytes % (Auto) 9 % (0-12); Neutrophils # (Auto) 8.5 Thou/mm3 (1.8-7.7); Neutrophils % (Auto) 75 % (37-80); Nucleated Red Blood Cell # 0.00 Thou/mm3 (0.00-0.00); Nucleated Red Blood Cell % 0 /100 WBC (0); Platelet Count 355 Thou/mm3 (140-440); RDW Standard Deviation 45.5 fL (35.1-43.9); Red Blood Count 2.30 Miln/mm3 (4.50-5.90); White Blood Count 11.3 Thou/mm3 (3.8-10.6)
[2025-01-13 14:55] LABS: Hematocrit 20.0 % (41.0-53.0); Hemoglobin 6.3 g/dL (13.5-16.0)
[2025-01-13 15:03] LABS: Alanine Aminotransferase 15 U/L (10-49); Albumin, Serum 4.0 gm/dL (3.4-4.8); Albumin/Globulin Ratio 1.4 (1.2-2.2); Alkaline Phosphatase 103 U/L (46-116); Anion Gap 11 (7-16); Aspartate Amino Transferase 13 U/L (0-34); BUN/Creatinine Ratio 16 Ratio (12-20); Bilirubin,Total 0.2 mg/dL (0.3-1.2); Blood Urea Nitrogen 39 mg/dL (9-23); Calcium 10.1 mg/dL (8.3-10.6); Calcium (Corrected) 10.1 mg/dL (8.5-10.1); Carbon Dioxide 21.3 mMol/L (20.0-31.0); Chloride 103 mMol/L (98-107); Creatinine (Component) 2.4 mg/dL (0.6-1.3); Globulin 2.9 gm/dL (2.3-3.5); Glucose 127 mg/dL (74-106); Osmolality,Calculated 281 (275-295); Potassium 5.2 mMol/L (3.4-5.1); Sodium 135 mMol/L (136-145); Thyroid Stimulating Hormone 2.92 uIU/mL (0.55-4.78); Total Protein 6.9 gm/dL (5.7-8.2); eGFR 27 See Note
[2025-01-13 18:34] LABS: Path Review Blood Smear Sent to Pathologist
== END | disposition home or self-care (01) ==
LOC: SCTO 13:15
PROVIDERS: PCP Internal Medicine; Referring Provider Internal Medicine Hematology & Oncology; Visit Provider Internal Medicine Hematology & Oncology
DX: C44.90 Unspecified malignant neoplasm of skin, unspecified (principal); E03.9 Hypothyroidism, unspecified
CPT/HCPCS: 36415; 80053; 84443; 85025

== ENCOUNTER → 2025-01-15 | Outpatient (CLI) | payer OTHER, SELFPAY | END | disposition home or self-care (01) | PROVIDERS: PCP Internal Medicine; Referring Provider Internal Medicine; Visit Provider Student in an Organized Health Care Education/Training Program | DX: T81.89XA Other complications of procedures, not elsewhere classified, initial encounter (principal); S01.90XA Unspecified open wound of unspecified part of head, initial encounter; X58.XXXA Exposure to other specified factors, initial encounter; D48.5 Neoplasm of uncertain behavior of skin; C76.0 Malignant neoplasm of head, face and neck; C49.0 Malignant neoplasm of connective and soft tissue of head, face and neck; Z79.891 Long term (current) use of opiate analgesic | CPT/HCPCS: 99213; G0463 ==

== ENCOUNTER → 2025-01-17 | Outpatient (CLI) | payer OTHER, SELFPAY | END | disposition home or self-care (01) | LOC: SWHD 12:43 | PROVIDERS: PCP Internal Medicine; Referring Provider Internal Medicine; Visit Provider Student in an Organized Health Care Education/Training Program | DX: S01.90XA Unspecified open wound of unspecified part of head, initial encounter (principal); X58.XXXA Exposure to other specified factors, initial encounter; D48.5 Neoplasm of uncertain behavior of skin; C76.0 Malignant neoplasm of head, face and neck; C49.0 Malignant neoplasm of connective and soft tissue of head, face and neck; Z87.891 Personal history of nicotine dependence | CPT/HCPCS: 99213; G0463 ==

== ENCOUNTER → 2025-01-20 | Outpatient (CLI) | payer OTHER, SELFPAY ==
[2025-01-20 13:24] LABS: Basophils # (Auto) 0.0 Thou/mm3 (0.0-0.2); Basophils % (Auto) 0 % (0-2.5); Eosinophils # (Auto) 0.2 Thou/mm3 (0.0-0.5); Eosinophils % (Auto) 2 % (0-10); Hematocrit 28.1 % (41.0-53.0); Hemoglobin 9.1 g/dL (13.5-16.0); Immature Granulocytes Auto 0.05 Thou/mm3 (0.00-0.00); Lymphocytes # (Auto) 1.4 Thou/mm3 (1.0-4.8); Lymphocytes % (Auto) 13 % (10-50); Mean Corpuscular HGB Conc 32.4 g/dl (31.0-37.0); Mean Corpuscular Hemoglobin 28.3 pg (25.0-35.0); Mean Corpuscular Volume 87 fL (80-100); Monocytes # (Auto) 1.0 Thou/mm3 (0.0-0.8); Monocytes % (Auto) 9 % (0-12); Neutrophils # (Auto) 7.7 Thou/mm3 (1.8-7.7); Neutrophils % (Auto) 75 % (37-80); Nucleated Red Blood Cell # 0.00 Thou/mm3 (0.00-0.00); Nucleated Red Blood Cell % 0 /100 WBC (0); Platelet Count 365 Thou/mm3 (140-440); RDW Standard Deviation 42.3 fL (35.1-43.9); Red Blood Count 3.22 Miln/mm3 (4.50-5.90); White Blood Count 10.3 Thou/mm3 (3.8-10.6)
[2025-01-20 13:40] LABS: Alanine Aminotransferase 17 U/L (10-49); Albumin, Serum 4.2 gm/dL (3.4-4.8); Albumin/Globulin Ratio 1.4 (1.2-2.2); Alkaline Phosphatase 119 U/L (46-116); Anion Gap 11 (7-16); Aspartate Amino Transferase 15 U/L (0-34); BUN/Creatinine Ratio 14 Ratio (12-20); Bilirubin,Total 0.2 mg/dL (0.3-1.2); Blood Urea Nitrogen 27 mg/dL (9-23); Calcium 10.5 mg/dL (8.3-10.6); Calcium (Corrected) 10.5 mg/dL (8.5-10.1); Carbon Dioxide 23.5 mMol/L (20.0-31.0); Chloride 104 mMol/L (98-107); Creatinine (Component) 2.0 mg/dL (0.6-1.3); Globulin 3.0 gm/dL (2.3-3.5); Glucose 111 mg/dL (74-106); Osmolality,Calculated 281 (275-295); Potassium 4.6 mMol/L (3.4-5.1); Sodium 138 mMol/L (136-145); Thyroid Stimulating Hormone 3.31 uIU/mL (0.55-4.78); Total Protein 7.2 gm/dL (5.7-8.2); eGFR 34 See Note
== END | disposition home or self-care (01) ==
LOC: SCTO 11:32
PROVIDERS: PCP Internal Medicine; Referring Provider Internal Medicine Hematology & Oncology; Visit Provider Internal Medicine Hematology & Oncology
DX: C44.90 Unspecified malignant neoplasm of skin, unspecified (principal); E03.9 Hypothyroidism, unspecified
CPT/HCPCS: 36415; 80053; 84443; 85025

== ENCOUNTER → 2025-01-22 | Outpatient (CLI) | payer OTHER, SELFPAY | END | disposition home or self-care (01) | LOC: SWHD 14:59 | PROVIDERS: PCP Internal Medicine; Referring Provider Internal Medicine; Visit Provider Student in an Organized Health Care Education/Training Program | DX: S01.90XA Unspecified open wound of unspecified part of head, initial encounter (principal); X58.XXXA Exposure to other specified factors, initial encounter; D48.5 Neoplasm of uncertain behavior of skin; C76.0 Malignant neoplasm of head, face and neck; C49.0 Malignant neoplasm of connective and soft tissue of head, face and neck; Z87.891 Personal history of nicotine dependence | CPT/HCPCS: 99213; G0463 ==

== ENCOUNTER 2025-01-23 14:45 | Outpatient (RCR) | payer OTHER, SELFPAY ==
--- NOTE | 2025-02-03 02:13 | CTCFLWUP_ITS ---
Patient: MOLLY RANDALL : 1950 Page 3 of 6 FOLLOW UP NOTE DATE OF SERVICE: 01/23/2025 NAME: MOLLY RANDALL ACCOUNT: [id number] : 1950 AGE: 74 INTERVAL HISTORY: Summary --Mr. Antony Lou, a patient with scalp cancer, presents for follow- up after starting treatment with cemiplimab since May 2024. Patient was seen by wound care and a piece of scalp lesion fell off. The mass was sent to pathologist. As per pathologist mass of the tumor shows mostly necrotic tissue and that is why sloughing of. 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 Patient also diagnosed with melanoma in a March 2024 and was advised to follow-up with oncology. Patient was treated with radiation in the past for squamous cancer. Patient now have unhealing wounds. Patient is on cemiplimab OTHER MEDICAL HISTORY/CONDITIONS: HYPERTENSION DIABETES TYPE 2 HIGH CHOLESTEROL SKIN CANCER HX CKD (2020) CATARACT EYE SURGERY RIGHT EYE [facility] SURGERY -SCALP/ SKIN TRANSPLANT FAMILY HISTORY: Father:?DENIES Mother:?DENIES Sibling:?DENIES Children:?DENIES Cancer History:?HX SQUAMOUS CELL CANCER SCALP,FACE SOCIAL HISTORY: Occupational?History:?RETIRED [employer] Education?Level:?Completed something less than 8th grade Marital?Status:?Single Tobacco?Pack?per?Day:?1 Tobacco?Use?Years:?15 Tobacco Use:?STOPPED SMOKING 40 YEARS AGO ETOH?Use:?STOPPED?DRINKING?40?YEARS?AGO Drug?Note:?DENIES MEDICATIONS: 1. amlodipine - 10 mg 1 tab Daily 2. Colace - 100 mg 1 Capsule Daily 3. furosemide - 40 mg 1 tab Daily 4. glimepiride - 4 mg Daily 5. lovastatin - 40 mg Twice a Day 6. oxybutynin chloride - 5 mg 1 tab In the evening 7. Pyridium - 100 mg 1 tab Twice a Day 8. sertraline - 50 mg 1 tab In the evening 9. tamsulosin - 0.4 mg 1 Capsule In the evening 10. traZODone - 50 mg 1 tab In the evening 11. Trulicity - 0.75 mg/0.5 mL 1 Shot Weekly?Palabra Meds? Medications Last Reconciled by Mayela Zaman MD on 01/24/2025 ALLERGIES: No Known Drug Allergies REVIEW OF SYSTEMS: A complete 14-point review of systems was performed and is negative except as noted in interval history. PHYSICAL EXAMINATION:?[facility] PE? VITAL SIGNS: Temperature?98.8, B/P?148/73, Oxygen?Saturation?97% Weight?143?lbs (Change?since?01/21/25:?-1.4?lbs) PAIN: 0 - No pain ECOG Performance Status: 2 - Symptomatic; ambulatory; capable of self-care; >50% of waking hrs. not in bed GENERAL APPEARANCE: Appears well, in no apparent distress, appropriately interactive. HEENT: Normocephalic, no temporal wasting, normal conjunctiva, no scleral icterus, normal hearing, lips without lesions, neck normal range of motion. Big lesion on his head which is covered with dressing and foul-smelling CARDIOVASCULAR: Not assessed. PULMONARY: Normal respiratory effort, no respiratory distress or use of accessory muscles, speaking in full sentences, no tachypnea. EXTREMITIES: No pedal edema or cyanosis. SKIN: Normal skin appearance. NEUROLOGIC: Alert and oriented x4. PSHYCHIATRIC: Appropriate affect, mood normal, behavior normal, intact thought and speech. LABORATORY DATA: I have personally reviewed and interpreted each of the patient?s relevant lab tests, abnormal findings are below: Date 01/20/25 01/27/25 ??WHITE?BLOOD?COUNT?(Thou/mm3) 10.3 10.1 ??RED?BLOOD?COUNT?(Miln/mm3) 3.22?L 2.98?L ??HEMOGLOBIN?(gm/dl) 9.1?L 8.2?L ??HEMATOCRIT?(%) 28.1?L 25.4?L ??PLATELET?COUNT?(Thou/mm3) 365 345 ??NEUTROPHILS?%,?AUTO?(%) 75 77 ??LYMPH?%,?AUTO?(%) 13 12 ??NEUTROPHILS,?AUTO?(Thou/mm3) 7.7 7.8?H ??GLUCOSE,RANDOM?(mg/dL) 111?H 126?H ??BLOOD?UREA?NITROGEN?(mg/dL) 27?H 27?H ??CREATININE?(mg/dL) 2.00?H 2.20?H ??SODIUM?(mmol/L) 138 138 ??POTASSIUM?(mmol/L) 4.6 4.8 ??CHLORIDE?(mmol/L) 104 103 ??CrCl?(CandG)?(ml/min) 29.03 26.62 ??AST/SGOT?(Unit/L) 15 13 ??ALT/SGPT?(Unit/L) 17 16 ??ALKALINE?PHOSPHATASE?(Unit/L) 119?H 122?H ??BILIRUBIN,?TOTAL?(mg/dL) 0.2?L 0.2?L ??PROTEIN?TOTAL?(gm/dl) 7.2 7.1 ??ALBUMIN,?SERUM?(gm/dl) 4.2 4.2 ??GLOBULIN?(gm/dl) 3.0 2.9 ??ALBUMIN/GLOBULIN?RATIO 1.4 1.4 ??CALCIUM,?SERUM?(mg/dL) 10.5 10.1 ??CALCIUM?SERUM?(CORRECTED)?(mg/dL) 10.5?H 10.1 ASSESSMENT/PLAN:?Anthony Smith Assessment/Plan? 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 Patient is 74 yr old male with squamous cell cancer of skin and melanoma in situ Unresectable Non healing wounds s/p radiation in the past Patient is on cemplimab as first line systemic therapy every 3 weeks Continue cemiplimab for now as patient is definitely having response to it Transfuse to keep hemoglobin above 7 As patient's tumor is likely motivating to sarcoma , I will refer patient to tertiary level center Referral placed anemia Improved and stable Plan: - Continue to monitor hemoglobin levels - Assess need for further transfusions as needed Bone Health Concerns Assessment: Patient has bone-related issues, possibly related to cancer metastases or treatment effects. Consideration for medication to decrease calcium levels, pending dental clearance. Plan: - Refer patient to dentist for clearance - Once dental clearance obtained, consider initiating medication to lower calcium levels (pending insurance approval) - Advise patient to increase water intake ORDERS: Order # Description [id number] 2 Units PRBC [id number] Refer To: + Surgery [id number] Follow Up Appointment MD [id number] CBC + Comprehensive Metabolic Panel [id number] Lab Appointment [id number] Comprehensive Metabolic Panel - 12 + CBC with Auto Diff [id number] RETURN TO CLINIC: I reviewed the diagnosis, prognosis, and recommended treatment/procedure options with the patient (and/or their legal licensing representative), including the potential benefits, risks, side effects and alternative therapies. We also discussed the option of no treatment and the possibility of clinical trial participation, if applicable. All questions were addressed, and they demonstrated understanding. They provided informed consent to proceed with the proposed plan of care. BILLING AND COMPLIANCE: I reviewed external records from providers outside my specialty as summarized above. I spent a total of 50 minutes on this patient?s care on the day of their visit excluding time spent related to any billed procedures. This time includes time spent with the patient as well as time spent documenting in the medical record, reviewing patients records and tests, obtaining history, placing orders, communicating with other healthcare professionals, counseling the patient, family or caregiver, and/or care coordination for the diagnoses above. Electronically Signed by: Lloyd Smith MD T: 2:10 AM CC: William?Hermelinda?, Rodger?Rosa? PCP: Zaid Sanchez Referring: Zaid Sanchez This document was completed utilizing speech recognition software. Grammatical errors, random word insertions, pronoun errors, and incomplete sentences are an occasional consequence of this system due to software limitations, ambient noise, and hardware issues. Any formal questions or concerns about the content, text or information contained within the body of this dictation should be directly addressed to the provider for clarification.
== END 2025-02-07 23:59 | disposition home or self-care (01) ==
LOC: SCTC 14:45
PROVIDERS: PCP Internal Medicine; Referring Provider Internal Medicine; Visit Provider Internal Medicine Hematology & Oncology
DX: Z51.11 Encounter for antineoplastic chemotherapy (principal); C44.42 Squamous cell carcinoma of skin of scalp and neck; D64.9 Anemia, unspecified; M89.9 Disorder of bone, unspecified
CPT/HCPCS: 36430; 86850; 86900; 86901; 86923; 96413; 99212; J3490; J9119; P9016; G0463

== ENCOUNTER → 2025-01-24 | Outpatient (CLI) | payer OTHER, SELFPAY | END | disposition home or self-care (01) | LOC: SWHD 12:36 | PROVIDERS: PCP Internal Medicine; Referring Provider Internal Medicine; Visit Provider Physician Assistant | DX: S01.90XA Unspecified open wound of unspecified part of head, initial encounter (principal); X58.XXXA Exposure to other specified factors, initial encounter; D48.5 Neoplasm of uncertain behavior of skin; C76.0 Malignant neoplasm of head, face and neck; C49.0 Malignant neoplasm of connective and soft tissue of head, face and neck; Z87.891 Personal history of nicotine dependence | CPT/HCPCS: 99213; G0463 ==

== ENCOUNTER → 2025-01-27 | Outpatient (CLI) | payer OTHER, SELFPAY ==
[2025-01-27 12:18] LABS: Basophils # (Auto) 0.0 Thou/mm3 (0.0-0.2); Basophils % (Auto) 0 % (0-2.5); Eosinophils # (Auto) 0.2 Thou/mm3 (0.0-0.5); Eosinophils % (Auto) 2 % (0-10); Hematocrit 25.4 % (41.0-53.0); Immature Granulocytes Auto 0.06 Thou/mm3 (0.00-0.00); Lymphocytes # (Auto) 1.2 Thou/mm3 (1.0-4.8); Lymphocytes % (Auto) 12 % (10-50); Mean Corpuscular HGB Conc 32.3 g/dl (31.0-37.0); Mean Corpuscular Hemoglobin 27.5 pg (25.0-35.0); Mean Corpuscular Volume 85 fL (80-100); Monocytes # (Auto) 0.8 Thou/mm3 (0.0-0.8); Monocytes % (Auto) 8 % (0-12); Neutrophils # (Auto) 7.8 Thou/mm3 (1.8-7.7); Neutrophils % (Auto) 77 % (37-80); Nucleated Red Blood Cell # 0.00 Thou/mm3 (0.00-0.00); Nucleated Red Blood Cell % 0 /100 WBC (0); Platelet Count 345 Thou/mm3 (140-440); RDW Standard Deviation 41.1 fL (35.1-43.9); Red Blood Count 2.98 Miln/mm3 (4.50-5.90); White Blood Count 10.1 Thou/mm3 (3.8-10.6)
[2025-01-27 12:25] LABS: Hemoglobin 8.2 g/dL (13.5-16.0)
[2025-01-27 12:34] LABS: Alanine Aminotransferase 16 U/L (10-49); Albumin, Serum 4.2 gm/dL (3.4-4.8); Albumin/Globulin Ratio 1.4 (1.2-2.2); Alkaline Phosphatase 122 U/L (46-116); Anion Gap 12 (7-16); Aspartate Amino Transferase 13 U/L (0-34); BUN/Creatinine Ratio 12 Ratio (12-20); Bilirubin,Total 0.2 mg/dL (0.3-1.2); Blood Urea Nitrogen 27 mg/dL (9-23); Calcium 10.1 mg/dL (8.3-10.6); Calcium (Corrected) 10.1 mg/dL (8.5-10.1); Carbon Dioxide 23.4 mMol/L (20.0-31.0); Chloride 103 mMol/L (98-107); Creatinine (Component) 2.2 mg/dL (0.6-1.3); Globulin 2.9 gm/dL (2.3-3.5); Glucose 126 mg/dL (74-106); Osmolality,Calculated 282 (275-295); Potassium 4.8 mMol/L (3.4-5.1); Sodium 138 mMol/L (136-145); Thyroid Stimulating Hormone 3.26 uIU/mL (0.55-4.78); Total Protein 7.1 gm/dL (5.7-8.2); eGFR 30 See Note
== END | disposition home or self-care (01) ==
LOC: SCTO 11:11
PROVIDERS: PCP Internal Medicine; Referring Provider Internal Medicine Hematology & Oncology; Visit Provider Internal Medicine Hematology & Oncology
DX: C44.90 Unspecified malignant neoplasm of skin, unspecified (principal)
CPT/HCPCS: 36415; 80053; 84443; 85025

== ENCOUNTER → 2025-01-29 | Outpatient (CLI) | payer OTHER, SELFPAY | END | disposition home or self-care (01) | LOC: SWHD 13:36 | PROVIDERS: PCP Internal Medicine; Referring Provider Internal Medicine; Visit Provider Student in an Organized Health Care Education/Training Program | DX: S01.90XA Unspecified open wound of unspecified part of head, initial encounter (principal); X58.XXXA Exposure to other specified factors, initial encounter; D48.5 Neoplasm of uncertain behavior of skin; C76.0 Malignant neoplasm of head, face and neck; C49.0 Malignant neoplasm of connective and soft tissue of head, face and neck; Z87.891 Personal history of nicotine dependence | CPT/HCPCS: 99213; G0463 ==

== ENCOUNTER → 2025-01-31 | Outpatient (CLI) | payer OTHER, SELFPAY | END | disposition home or self-care (01) | LOC: SWHD 12:34 | PROVIDERS: PCP Internal Medicine; Referring Provider Internal Medicine; Visit Provider Student in an Organized Health Care Education/Training Program | DX: S01.90XA Unspecified open wound of unspecified part of head, initial encounter (principal); X58.XXXA Exposure to other specified factors, initial encounter; D48.5 Neoplasm of uncertain behavior of skin; C76.0 Malignant neoplasm of head, face and neck; C49.0 Malignant neoplasm of connective and soft tissue of head, face and neck; Z87.891 Personal history of nicotine dependence | CPT/HCPCS: 99213; G0463 ==

== ENCOUNTER → 2025-02-03 | Outpatient (CLI) | payer OTHER, SELFPAY ==
[2025-02-03 14:48] LABS: Basophils # (Auto) 0.1 Thou/mm3 (0.0-0.2); Basophils % (Auto) 0 % (0-2.5); Eosinophils # (Auto) 0.2 Thou/mm3 (0.0-0.5); Eosinophils % (Auto) 1 % (0-10); Hematocrit 27.1 % (41.0-53.0); Immature Granulocytes Auto 0.06 Thou/mm3 (0.00-0.00); Lymphocytes # (Auto) 1.9 Thou/mm3 (1.0-4.8); Lymphocytes % (Auto) 14 % (10-50); Mean Corpuscular HGB Conc 32.1 g/dl (31.0-37.0); Mean Corpuscular Hemoglobin 27.3 pg (25.0-35.0); Mean Corpuscular Volume 85 fL (80-100); Monocytes # (Auto) 1.2 Thou/mm3 (0.0-0.8); Monocytes % (Auto) 9 % (0-12); Neutrophils # (Auto) 9.8 Thou/mm3 (1.8-7.7); Neutrophils % (Auto) 74 % (37-80); Nucleated Red Blood Cell # 0.00 Thou/mm3 (0.00-0.00); Nucleated Red Blood Cell % 0 /100 WBC (0); Platelet Count 422 Thou/mm3 (140-440); RDW Standard Deviation 41.7 fL (35.1-43.9); Red Blood Count 3.19 Miln/mm3 (4.50-5.90); White Blood Count 13.2 Thou/mm3 (3.8-10.6)
[2025-02-03 15:09] LABS: Alanine Aminotransferase 20 U/L (10-49); Albumin, Serum 4.6 gm/dL (3.4-4.8); Albumin/Globulin Ratio 1.4 (1.2-2.2); Alkaline Phosphatase 142 U/L (46-116); Anion Gap 12 (7-16); Aspartate Amino Transferase 15 U/L (0-34); BUN/Creatinine Ratio 16 Ratio (12-20); Bilirubin,Total 0.3 mg/dL (0.3-1.2); Blood Urea Nitrogen 36 mg/dL (9-23); Calcium 10.8 mg/dL (8.3-10.6); Calcium (Corrected) 10.8 mg/dL (8.5-10.1); Carbon Dioxide 26.1 mMol/L (20.0-31.0); Chloride 98 mMol/L (98-107); Creatinine (Component) 2.2 mg/dL (0.6-1.3); Globulin 3.4 gm/dL (2.3-3.5); Glucose 132 mg/dL (74-106); Osmolality,Calculated 282 (275-295); Potassium 4.5 mMol/L (3.4-5.1); Sodium 136 mMol/L (136-145); Thyroid Stimulating Hormone 2.44 uIU/mL (0.55-4.78); Total Protein 8.0 gm/dL (5.7-8.2); eGFR 30 See Note
[2025-02-03 15:24] LABS: Hemoglobin 8.7 g/dL (13.5-16.0)
== END | disposition home or self-care (01) ==
LOC: SCTO 13:22
PROVIDERS: PCP Internal Medicine; Referring Provider Internal Medicine Hematology & Oncology; Visit Provider Internal Medicine Hematology & Oncology
DX: C44.90 Unspecified malignant neoplasm of skin, unspecified (principal)
CPT/HCPCS: 36415; 80053; 84443; 85025

== ENCOUNTER → 2025-02-05 | Outpatient (CLI) | payer OTHER, SELFPAY | END | disposition home or self-care (01) | LOC: SWHD 13:52 | PROVIDERS: PCP Internal Medicine; Referring Provider Internal Medicine; Visit Provider Student in an Organized Health Care Education/Training Program | DX: S01.90XA Unspecified open wound of unspecified part of head, initial encounter (principal); X58.XXXA Exposure to other specified factors, initial encounter; D48.5 Neoplasm of uncertain behavior of skin; C76.0 Malignant neoplasm of head, face and neck; C49.0 Malignant neoplasm of connective and soft tissue of head, face and neck; Z87.891 Personal history of nicotine dependence | CPT/HCPCS: 99213; G0463 ==

== ENCOUNTER → 2025-02-07 | Outpatient (CLI) | payer OTHER, SELFPAY | END | disposition home or self-care (01) | LOC: SWHD 12:40 | PROVIDERS: PCP Internal Medicine; Referring Provider Internal Medicine; Visit Provider Surgery | DX: S01.90XA Unspecified open wound of unspecified part of head, initial encounter (principal); X58.XXXA Exposure to other specified factors, initial encounter; D48.5 Neoplasm of uncertain behavior of skin; C76.0 Malignant neoplasm of head, face and neck; C49.0 Malignant neoplasm of connective and soft tissue of head, face and neck; Z87.891 Personal history of nicotine dependence | CPT/HCPCS: 99213; G0463 ==

== ENCOUNTER → 2025-02-10 | Outpatient (CLI) | payer OTHER, SELFPAY ==
[2025-02-10 12:08] LABS: Basophils # (Auto) 0.1 Thou/mm3 (0.0-0.2); Basophils % (Auto) 1 % (0-2.5); Eosinophils # (Auto) 0.2 Thou/mm3 (0.0-0.5); Eosinophils % (Auto) 2 % (0-10); Hematocrit 24.9 % (41.0-53.0); Immature Granulocytes Auto 0.06 Thou/mm3 (0.00-0.00); Lymphocytes # (Auto) 1.7 Thou/mm3 (1.0-4.8); Lymphocytes % (Auto) 13 % (10-50); Mean Corpuscular HGB Conc 31.3 g/dl (31.0-37.0); Mean Corpuscular Hemoglobin 26.8 pg (25.0-35.0); Mean Corpuscular Volume 86 fL (80-100); Monocytes # (Auto) 1.3 Thou/mm3 (0.0-0.8); Monocytes % (Auto) 10 % (0-12); Neutrophils # (Auto) 9.2 Thou/mm3 (1.8-7.7); Neutrophils % (Auto) 74 % (37-80); Nucleated Red Blood Cell # 0.00 Thou/mm3 (0.00-0.00); Nucleated Red Blood Cell % 0 /100 WBC (0); Platelet Count 374 Thou/mm3 (140-440); RDW Standard Deviation 43.2 fL (35.1-43.9); Red Blood Count 2.91 Miln/mm3 (4.50-5.90); White Blood Count 12.4 Thou/mm3 (3.8-10.6)
[2025-02-10 12:24] LABS: Alanine Aminotransferase 15 U/L (10-49); Albumin, Serum 4.3 gm/dL (3.4-4.8); Albumin/Globulin Ratio 1.4 (1.2-2.2); Alkaline Phosphatase 116 U/L (46-116); Anion Gap 11 (7-16); Aspartate Amino Transferase < 8 U/L (0-34); BUN/Creatinine Ratio 18 Ratio (12-20); Bilirubin,Total 0.2 mg/dL (0.3-1.2); Blood Urea Nitrogen 43 mg/dL (9-23); Calcium 10.4 mg/dL (8.3-10.6); Calcium (Corrected) 10.4 mg/dL (8.5-10.1); Carbon Dioxide 25.3 mMol/L (20.0-31.0); Chloride 99 mMol/L (98-107); Creatinine (Component) 2.4 mg/dL (0.6-1.3); Globulin 3.1 gm/dL (2.3-3.5); Glucose 125 mg/dL (74-106); Osmolality,Calculated 281 (275-295); Potassium 4.6 mMol/L (3.4-5.1); Sodium 135 mMol/L (136-145); Thyroid Stimulating Hormone 1.94 uIU/mL (0.55-4.78); Total Protein 7.4 gm/dL (5.7-8.2); eGFR 27 See Note
[2025-02-10 12:31] LABS: Hemoglobin 7.8 g/dL (13.5-16.0)
== END | disposition home or self-care (01) ==
LOC: SCTO 10:48
PROVIDERS: PCP Internal Medicine; Referring Provider Internal Medicine Hematology & Oncology; Visit Provider Internal Medicine Hematology & Oncology
DX: C44.90 Unspecified malignant neoplasm of skin, unspecified (principal)
CPT/HCPCS: 36415; 80053; 84443; 85025

== ENCOUNTER → 2025-02-12 | Outpatient (CLI) | payer OTHER, SELFPAY | END | disposition home or self-care (01) | LOC: SWHD 13:55 | PROVIDERS: PCP Internal Medicine; Referring Provider Internal Medicine; Visit Provider Student in an Organized Health Care Education/Training Program | DX: S01.90XA Unspecified open wound of unspecified part of head, initial encounter (principal); X58.XXXA Exposure to other specified factors, initial encounter; D48.5 Neoplasm of uncertain behavior of skin; C76.0 Malignant neoplasm of head, face and neck; C49.0 Malignant neoplasm of connective and soft tissue of head, face and neck; Z87.891 Personal history of nicotine dependence | CPT/HCPCS: 99213; G0463 ==

== ENCOUNTER → 2025-02-14 | Outpatient (CLI) | payer OTHER, SELFPAY | END | disposition home or self-care (01) | LOC: SWHD 12:52 | PROVIDERS: PCP Internal Medicine; Referring Provider Internal Medicine; Visit Provider Physician Assistant | DX: S01.90XA Unspecified open wound of unspecified part of head, initial encounter (principal); X58.XXXA Exposure to other specified factors, initial encounter; D48.5 Neoplasm of uncertain behavior of skin; C76.0 Malignant neoplasm of head, face and neck; C49.0 Malignant neoplasm of connective and soft tissue of head, face and neck; Z87.891 Personal history of nicotine dependence | CPT/HCPCS: 99213; A9270; G0463 ==

== ENCOUNTER → 2025-02-17 | Outpatient (CLI) | payer OTHER, MEDICAID, SELFPAY ==
[2025-02-17 14:05] LABS: Basophils # (Auto) 0.0 Thou/mm3 (0.0-0.2); Basophils % (Auto) 0 % (0-2.5); Eosinophils # (Auto) 0.1 Thou/mm3 (0.0-0.5); Eosinophils % (Auto) 1 % (0-10); Hematocrit 24.4 % (41.0-53.0); Immature Granulocytes Auto 0.08 Thou/mm3 (0.00-0.00); Lymphocytes # (Auto) 1.7 Thou/mm3 (1.0-4.8); Lymphocytes % (Auto) 14 % (10-50); Mean Corpuscular HGB Conc 32.8 g/dl (31.0-37.0); Mean Corpuscular Hemoglobin 27.5 pg (25.0-35.0); Mean Corpuscular Volume 84 fL (80-100); Monocytes # (Auto) 0.9 Thou/mm3 (0.0-0.8); Monocytes % (Auto) 7 % (0-12); Neutrophils # (Auto) 9.0 Thou/mm3 (1.8-7.7); Neutrophils % (Auto) 77 % (37-80); Nucleated Red Blood Cell # 0.00 Thou/mm3 (0.00-0.00); Nucleated Red Blood Cell % 0 /100 WBC (0); Platelet Count 322 Thou/mm3 (140-440); RDW Standard Deviation 41.2 fL (35.1-43.9); Red Blood Count 2.91 Miln/mm3 (4.50-5.90); White Blood Count 11.7 Thou/mm3 (3.8-10.6)
[2025-02-17 14:14] LABS: Alanine Aminotransferase 20 U/L (10-49); Albumin, Serum 4.1 gm/dL (3.4-4.8); Albumin/Globulin Ratio 1.6 (1.2-2.2); Alkaline Phosphatase 116 U/L (46-116); Anion Gap 7 (7-16); Aspartate Amino Transferase 15 U/L (0-34); BUN/Creatinine Ratio 17 Ratio (12-20); Bilirubin,Total 0.2 mg/dL (0.3-1.2); Blood Urea Nitrogen 41 mg/dL (9-23); Calcium 9.7 mg/dL (8.3-10.6); Calcium (Corrected) 9.7 mg/dL (8.5-10.1); Carbon Dioxide 29.3 mMol/L (20.0-31.0); Chloride 101 mMol/L (98-107); Creatinine (Component) 2.4 mg/dL (0.6-1.3); Free T4 (Free Thyroxine) 1.02 ng/dL (0.89-1.76); Globulin 2.6 gm/dL (2.3-3.5); Glucose 86 mg/dL (74-106); Osmolality,Calculated 282 (275-295); Potassium 4.8 mMol/L (3.4-5.1); Sodium 137 mMol/L (136-145); Thyroid Stimulating Hormone 2.06 uIU/mL (0.55-4.78); Total Protein 6.7 gm/dL (5.7-8.2); eGFR 27 See Note
[2025-02-17 14:22] LABS: Hemoglobin 8.0 g/dL (13.5-16.0)
== END | disposition home or self-care (01) ==
LOC: SCTO 13:20
PROVIDERS: PCP Internal Medicine; Referring Provider Internal Medicine Hematology & Oncology; Visit Provider Internal Medicine Hematology & Oncology
DX: C44.90 Unspecified malignant neoplasm of skin, unspecified (principal)
CPT/HCPCS: 36415; 80053; 84439; 84443; 85025

== ENCOUNTER → 2025-02-19 | Outpatient (CLI) | payer OTHER, SELFPAY | END | disposition home or self-care (01) | LOC: SWHD 13:34 | PROVIDERS: PCP Internal Medicine; Referring Provider Internal Medicine; Visit Provider Student in an Organized Health Care Education/Training Program | DX: S01.90XA Unspecified open wound of unspecified part of head, initial encounter (principal); X58.XXXA Exposure to other specified factors, initial encounter; D48.5 Neoplasm of uncertain behavior of skin; C76.0 Malignant neoplasm of head, face and neck; C49.0 Malignant neoplasm of connective and soft tissue of head, face and neck; Z87.891 Personal history of nicotine dependence | CPT/HCPCS: 99213; G0463 ==

== ENCOUNTER → 2025-02-21 | Outpatient (CLI) | payer OTHER, SELFPAY | END | disposition home or self-care (01) | LOC: SWHD 12:46 | PROVIDERS: PCP Internal Medicine; Referring Provider Internal Medicine; Visit Provider Surgery | DX: S01.90XA Unspecified open wound of unspecified part of head, initial encounter (principal); X58.XXXA Exposure to other specified factors, initial encounter; D48.5 Neoplasm of uncertain behavior of skin; C76.0 Malignant neoplasm of head, face and neck; C49.0 Malignant neoplasm of connective and soft tissue of head, face and neck; Z87.891 Personal history of nicotine dependence | CPT/HCPCS: 99213; A9270; G0463 ==

== ENCOUNTER → 2025-02-24 | Outpatient (CLI) | payer OTHER, MEDICAID, SELFPAY ==
[2025-02-24 11:23] LABS: Basophils # (Auto) 0.1 Thou/mm3 (0.0-0.2); Basophils % (Auto) 0 % (0-2.5); Eosinophils # (Auto) 0.2 Thou/mm3 (0.0-0.5); Eosinophils % (Auto) 2 % (0-10); Hematocrit 24.7 % (41.0-53.0); Immature Granulocytes Auto 0.07 Thou/mm3 (0.00-0.00); Lymphocytes # (Auto) 1.4 Thou/mm3 (1.0-4.8); Lymphocytes % (Auto) 12 % (10-50); Mean Corpuscular HGB Conc 31.6 g/dl (31.0-37.0); Mean Corpuscular Hemoglobin 26.6 pg (25.0-35.0); Mean Corpuscular Volume 84 fL (80-100); Monocytes # (Auto) 0.9 Thou/mm3 (0.0-0.8); Monocytes % (Auto) 8 % (0-12); Neutrophils # (Auto) 9.0 Thou/mm3 (1.8-7.7); Neutrophils % (Auto) 77 % (37-80); Nucleated Red Blood Cell # 0.00 Thou/mm3 (0.00-0.00); Nucleated Red Blood Cell % 0 /100 WBC (0); Platelet Count 341 Thou/mm3 (140-440); RDW Standard Deviation 43.1 fL (35.1-43.9); Red Blood Count 2.93 Miln/mm3 (4.50-5.90); White Blood Count 11.7 Thou/mm3 (3.8-10.6)
[2025-02-24 11:25] LABS: Hemoglobin 7.8 g/dL (13.5-16.0)
[2025-02-24 11:48] LABS: Alanine Aminotransferase 12 U/L (10-49); Albumin, Serum 4.2 gm/dL (3.4-4.8); Albumin/Globulin Ratio 1.6 (1.2-2.2); Alkaline Phosphatase 117 U/L (46-116); Anion Gap 11 (7-16); Aspartate Amino Transferase < 10 U/L (0-34); BUN/Creatinine Ratio 15 Ratio (12-20); Bilirubin,Total 0.2 mg/dL (0.3-1.2); Blood Urea Nitrogen 32 mg/dL (9-23); Calcium 10.1 mg/dL (8.3-10.6); Calcium (Corrected) 10.1 mg/dL (8.5-10.1); Carbon Dioxide 25.5 mMol/L (20.0-31.0); Chloride 104 mMol/L (98-107); Creatinine (Component) 2.2 mg/dL (0.6-1.3); Free T4 (Free Thyroxine) 1.05 ng/dL (0.89-1.76); Globulin 2.6 gm/dL (2.3-3.5); Glucose 83 mg/dL (74-106); Osmolality,Calculated 285 (275-295); Potassium 4.6 mMol/L (3.4-5.1); Sodium 140 mMol/L (136-145); Thyroid Stimulating Hormone 2.41 uIU/mL (0.55-4.78); Total Protein 6.8 gm/dL (5.7-8.2); eGFR 30 See Note
== END | disposition home or self-care (01) ==
LOC: SCTO 10:48
PROVIDERS: PCP Internal Medicine; Referring Provider Internal Medicine Hematology & Oncology; Visit Provider Internal Medicine Hematology & Oncology
DX: C44.90 Unspecified malignant neoplasm of skin, unspecified (principal)
CPT/HCPCS: 36415; 80053; 84439; 84443; 85025

== ENCOUNTER → 2025-02-26 | Outpatient (CLI) | payer OTHER, MEDICAID, SELFPAY | END | disposition home or self-care (01) | LOC: SWHD 13:58 | PROVIDERS: PCP Internal Medicine; Referring Provider Internal Medicine; Visit Provider Student in an Organized Health Care Education/Training Program | DX: S01.90XA Unspecified open wound of unspecified part of head, initial encounter (principal); X58.XXXA Exposure to other specified factors, initial encounter; D48.5 Neoplasm of uncertain behavior of skin; C76.0 Malignant neoplasm of head, face and neck; C49.0 Malignant neoplasm of connective and soft tissue of head, face and neck; Z87.891 Personal history of nicotine dependence | CPT/HCPCS: 99213; G0463 ==

== ENCOUNTER → 2025-02-28 | Outpatient (CLI) | payer OTHER, SELFPAY | END | disposition home or self-care (01) | LOC: SWHD 12:45 | PROVIDERS: PCP Internal Medicine; Referring Provider Internal Medicine; Visit Provider Surgery | DX: S01.90XA Unspecified open wound of unspecified part of head, initial encounter (principal); X58.XXXA Exposure to other specified factors, initial encounter; D48.5 Neoplasm of uncertain behavior of skin; C76.0 Malignant neoplasm of head, face and neck; C49.0 Malignant neoplasm of connective and soft tissue of head, face and neck; Z87.891 Personal history of nicotine dependence | CPT/HCPCS: 99213; G0463 ==

== ENCOUNTER → 2025-03-03 | Outpatient (CLI) | payer OTHER, SELFPAY ==
[2025-03-03 12:01] LABS: Basophils # (Auto) 0.0 Thou/mm3 (0.0-0.2); Basophils % (Auto) 0 % (0-2.5); Eosinophils # (Auto) 0.2 Thou/mm3 (0.0-0.5); Eosinophils % (Auto) 1 % (0-10); Hematocrit 26.7 % (41.0-53.0); Immature Granulocytes Auto 0.06 Thou/mm3 (0.00-0.00); Lymphocytes # (Auto) 1.5 Thou/mm3 (1.0-4.8); Lymphocytes % (Auto) 12 % (10-50); Mean Corpuscular HGB Conc 31.5 g/dl (31.0-37.0); Mean Corpuscular Hemoglobin 26.4 pg (25.0-35.0); Mean Corpuscular Volume 84 fL (80-100); Monocytes # (Auto) 1.1 Thou/mm3 (0.0-0.8); Monocytes % (Auto) 9 % (0-12); Neutrophils # (Auto) 9.8 Thou/mm3 (1.8-7.7); Neutrophils % (Auto) 78 % (37-80); Nucleated Red Blood Cell # 0.00 Thou/mm3 (0.00-0.00); Nucleated Red Blood Cell % 0 /100 WBC (0); Platelet Count 322 Thou/mm3 (140-440); RDW Standard Deviation 43.8 fL (35.1-43.9); Red Blood Count 3.18 Miln/mm3 (4.50-5.90); White Blood Count 12.6 Thou/mm3 (3.8-10.6)
[2025-03-03 12:04] LABS: Hemoglobin 8.4 g/dL (13.5-16.0)
[2025-03-03 12:14] LABS: Alanine Aminotransferase 20 U/L (10-49); Albumin, Serum 4.1 gm/dL (3.4-4.8); Albumin/Globulin Ratio 1.4 (1.2-2.2); Alkaline Phosphatase 122 U/L (46-116); Anion Gap 10 (7-16); Aspartate Amino Transferase 17 U/L (0-34); BUN/Creatinine Ratio 18 Ratio (12-20); Bilirubin,Total 0.3 mg/dL (0.3-1.2); Blood Urea Nitrogen 42 mg/dL (9-23); Calcium 9.9 mg/dL (8.3-10.6); Calcium (Corrected) 9.9 mg/dL (8.5-10.1); Carbon Dioxide 23.3 mMol/L (20.0-31.0); Chloride 104 mMol/L (98-107); Creatinine (Component) 2.4 mg/dL (0.6-1.3); Free T4 (Free Thyroxine) 0.99 ng/dL (0.89-1.76); Globulin 2.9 gm/dL (2.3-3.5); Glucose 128 mg/dL (74-106); Osmolality,Calculated 286 (275-295); Potassium 5.2 mMol/L (3.4-5.1); Sodium 137 mMol/L (136-145); Thyroid Stimulating Hormone 2.70 uIU/mL (0.55-4.78); Total Protein 7.0 gm/dL (5.7-8.2); eGFR 27 See Note
== END | disposition home or self-care (01) ==
LOC: SCTO 10:55
PROVIDERS: PCP Internal Medicine; Referring Provider Internal Medicine Hematology & Oncology; Visit Provider Internal Medicine Hematology & Oncology
DX: C44.90 Unspecified malignant neoplasm of skin, unspecified (principal)
CPT/HCPCS: 36415; 80053; 84439; 84443; 85025

== ENCOUNTER 2025-03-04 08:39 | Outpatient (RCR) | payer OTHER, MEDICAID, SELFPAY ==
--- NOTE | 2025-03-02 23:13 | CTCFLWUP_ITS ---
Patient: MOLLY RANDALL : 1950 Page 2 of 2 FOLLOW UP NOTE DATE OF SERVICE: 02/24/2025 NAME: MOLLY RANDALL ACCOUNT: [id number] : 1950 AGE: 75 INTERVAL HISTORY: Summary --Mr. Antony Lou, a patient with more pleomorphic dermal sarcoma, here for follow-up. Patient says that his tumor has reduced in size. Patient was noted to have necrotic tissue. Patient has been on Cemiplimab and tolerating well. Would like to go back to [facility] for further evaluation. 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 Patient also diagnosed with melanoma in a March 2024 and was advised to follow-up with oncology. Patient was treated with radiation in the past for squamous cancer. Patient now have unhealing wounds. Patient is on cemiplimab OTHER MEDICAL HISTORY/CONDITIONS: HYPERTENSION DIABETES TYPE 2 HIGH CHOLESTEROL SKIN CANCER HX CKD (2020) CATARACT EYE SURGERY RIGHT EYE [facility] SURGERY -SCALP/ SKIN TRANSPLANT FAMILY HISTORY: Father:?DENIES Mother:?DENIES Sibling:?DENIES Children:?DENIES Cancer History:?HX SQUAMOUS CELL CANCER SCALP,FACE SOCIAL HISTORY: Occupational?History:?[employer]IRED [employer] Education?Level:?Completed something less than 8th grade Marital?Status:?Single Tobacco?Pack?per?Day:?1 Tobacco?Use?Years:?15 Tobacco Use:?STOPPED SMOKING 40 YEARS AGO ETOH?Use:?STOPPED?DRINKING?40?YEARS?AGO Drug?Note:?DENIES MEDICATIONS: 1. amlodipine - 10 mg 1 tab Daily 2. Colace - 100 mg 1 Capsule Daily 3. furosemide - 40 mg 1 tab Daily 4. glimepiride - 4 mg Daily 5. lovastatin - 40 mg Twice a Day 6. oxybutynin chloride - 5 mg 1 tab In the evening 7. Pyridium - 100 mg 1 tab Twice a Day 8. sertraline - 50 mg 1 tab In the evening 9. tamsulosin - 0.4 mg 1 Capsule In the evening 10. traZODone - 50 mg 1 tab In the evening 11. Trulicity - 0.75 mg/0.5 mL 1 Shot Weekly Medications Last Reconciled by Mayela Zaman MD on 02/24/2025 ALLERGIES: No Known Drug Allergies REVIEW OF SYSTEMS: A complete 14-point review of systems was performed and is negative except as noted in interval history. PHYSICAL EXAMINATION: VITAL SIGNS: Temperature?99.8, B/P?129/71, Oxygen?Saturation?98% Weight?142?lbs (Change?since?02/11/25:?3.2?lbs) PAIN: 0 - No pain ECOG Performance Status: 2 - Symptomatic; ambulatory; capable of self-care; >50% of waking hrs. not in bed GENERAL APPEARANCE: Appears well, in no apparent distress, appropriately interactive. HEENT: Normocephalic, no temporal wasting, normal conjunctiva, no scleral icterus, normal hearing, lips without lesions, neck normal range of motion. Big lesion on his head which is covered with dressing and foul-smelling CARDIOVASCULAR: Not assessed. PULMONARY: Normal respiratory effort, no respiratory distress or use of accessory muscles, speaking in full sentences, no tachypnea. EXTREMITIES: No pedal edema or cyanosis. SKIN: Normal skin appearance. NEUROLOGIC: Alert and oriented x4. PSHYCHIATRIC: Appropriate affect, mood normal, behavior normal, intact thought and speech. LABORATORY DATA: I have personally reviewed and interpreted each of the patient?s relevant lab tests, abnormal findings are below: Date 02/17/25 02/24/25 ??WHITE?BLOOD?COUNT?(Thou/mm3) 11.7?H 11.7?H ??RED?BLOOD?COUNT?(Miln/mm3) 2.91?L 2.93?L ??HEMOGLOBIN?(gm/dl) 8.0?L 7.8?L ??HEMATOCRIT?(%) 24.4?L 24.7?L ??PLATELET?COUNT?(Thou/mm3) 322 341 ??NEUTROPHILS?%,?AUTO?(%) 77 77 ??LYMPH?%,?AUTO?(%) 14 12 ??NEUTROPHILS,?AUTO?(Thou/mm3) 9.0?H 9.0?H ??GLUCOSE,RANDOM?(mg/dL) 86 83 ??BLOOD?UREA?NITROGEN?(mg/dL) 41?H 32?H ??CREATININE?(mg/dL) 2.40?H 2.20?H ??SODIUM?(mmol/L) 137 140 ??POTASSIUM?(mmol/L) 4.8 4.6 ??CHLORIDE?(mmol/L) 101 104 ??CrCl?(CandG)?(ml/min) 23.32 25.44 ??AST/SGOT?(Unit/L) 15 <?10 ??ALT/SGPT?(Unit/L) 20 12 ??ALKALINE?PHOSPHATASE?(Unit/L) 116 117?H ??BILIRUBIN,?TOTAL?(mg/dL) 0.2?L 0.2?L ??PROTEIN?TOTAL?(gm/dl) 6.7 6.8 ??ALBUMIN,?SERUM?(gm/dl) 4.1 4.2 ??GLOBULIN?(gm/dl) 2.6 2.6 ??ALBUMIN/GLOBULIN?RATIO 1.6 1.6 ??CALCIUM,?SERUM?(mg/dL) 9.7 10.1 ??CALCIUM?SERUM?(CORRECTED)?(mg/dL) 9.7 10.1 ASSESSMENT/PLAN: 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 Patient is 74 yr old male with squamous cell cancer of skin and melanoma in situ Unresectable Non healing wounds s/p radiation in the past Patient is on cemplimab as first line systemic therapy every 3 weeks Continue cemiplimab for now as patient is definitely having response to it Transfuse to keep hemoglobin above 7 Referral placed to [facility] for patient to follow-up with experts Continue current therapy Will get CT scan of head to see any response to treatment anemia Improved and stable Plan: - Continue to monitor hemoglobin levels - Assess need for further transfusions as needed Bone Health Concerns Assessment: Patient has bone-related issues, possibly related to cancer metastases or treatment effects. Consideration for medication to decrease calcium levels, pending dental clearance. Plan: - Refer patient to dentist for clearance - Once dental clearance obtained, consider initiating medication to lower calcium levels (pending insurance approval) - Advise patient to increase water intake ORDERS: Order # Description [id number] Comprehensive Metabolic Panel - 12 + CBC with Auto Diff [id number] Follow Up Appointment [id number] CBC + Comprehensive Metabolic Panel [id number] Lab Appointment [id number] Follow Up Appointment [id number] CBC + Comprehensive Metabolic Panel [id number] Lab Appointment [id number] Follow Up Appointment [id number] CBC + Comprehensive Metabolic Panel [id number] Lab Appointment [id number] Follow Up Appointment [id number] CBC + Comprehensive Metabolic Panel [id number] Lab Appointment [id number] Follow Up Appointment [id number] CBC + Comprehensive Metabolic Panel [id number] Lab Appointment [id number] Follow Up Appointment [id number] CBC + Comprehensive Metabolic Panel [id number] Lab Appointment [id number] Follow Up Appointment [id number] CBC + Comprehensive Metabolic Panel [id number] Lab Appointment [id number] Follow Up Appointment [id number] CBC + Comprehensive Metabolic Panel [id number] Lab Appointment [id number] Follow Up Appointment [id number] CBC + Comprehensive Metabolic Panel [id number] Lab Appointment [id number] Follow Up Appointment [id number] CBC + Comprehensive Metabolic Panel [id number] Lab Appointment [id number] Follow Up Appointment [id number] CBC + Comprehensive Metabolic Panel [id number] Lab Appointment [id number] Follow Up Appointment [id number] CBC + Comprehensive Metabolic Panel [id number] Lab Appointment [id number] Follow Up Appointment [id number] CBC + Comprehensive Metabolic Panel [id number] Lab Appointment [id number] Follow Up Appointment [id number] CBC + Comprehensive Metabolic Panel [id number] Lab Appointment [id number] Follow Up Appointment [id number] CBC + Comprehensive Metabolic Panel [id number] Lab Appointment [id number] Follow Up Appointment RETURN TO CLINIC: I reviewed the diagnosis, prognosis, and recommended treatment/procedure options with the patient (and/or their legal sales service representative), including the potential benefits, risks, side effects and alternative therapies. We also discussed the option of no treatment and the possibility of clinical trial participation, if applicable. All questions were addressed, and they demonstrated understanding. They provided informed consent to proceed with the proposed plan of care. BILLING AND COMPLIANCE: I reviewed external records from providers outside my specialty as summarized above. I spent a total of 50 minutes on this patient?s care on the day of their visit excluding time spent related to any billed procedures. This time includes time spent with the patient as well as time spent documenting in the medical record, reviewing patients records and tests, obtaining history, placing orders, communicating with other healthcare professionals, counseling the patient, family or caregiver, and/or care coordination for the diagnoses above. Electronically Signed by: Lloyd Smith MD T: 11:11 PM CC: William?Hermelinda,?, Rodger?Rosa? PCP: Zaid Sanchez Referring: Zaid Sanchez This document was completed utilizing speech recognition software. Grammatical errors, random word insertions, pronoun errors, and incomplete sentences are an occasional consequence of this system due to software limitations, ambient noise, and hardware issues. Any formal questions or concerns about the content, text or information contained within the body of this dictation should be directly addressed to the provider for clarification.
== END 2025-03-09 23:59 | disposition home or self-care (01) ==
LOC: SCTC 08:39
PROVIDERS: PCP Internal Medicine; Referring Provider Internal Medicine; Visit Provider Internal Medicine Hematology & Oncology
DX: Z51.11 Encounter for antineoplastic chemotherapy (principal); C44.42 Squamous cell carcinoma of skin of scalp and neck; D64.9 Anemia, unspecified
CPT/HCPCS: 36430; 85025; 86850; 86900; 86901; 86923; 96413; 99212; J3490; J7040; J9119; P9016; G0463

== ENCOUNTER → 2025-03-05 | Outpatient (CLI) | payer OTHER, SELFPAY | END | disposition home or self-care (01) | LOC: SWHD 13:17 | PROVIDERS: PCP Internal Medicine; Referring Provider Internal Medicine; Visit Provider Student in an Organized Health Care Education/Training Program | DX: S01.90XA Unspecified open wound of unspecified part of head, initial encounter (principal); X58.XXXA Exposure to other specified factors, initial encounter; D48.5 Neoplasm of uncertain behavior of skin; C76.0 Malignant neoplasm of head, face and neck; C49.0 Malignant neoplasm of connective and soft tissue of head, face and neck; Z87.891 Personal history of nicotine dependence | CPT/HCPCS: 99213; G0463 ==

== ENCOUNTER → 2025-03-07 | Outpatient (CLI) | payer OTHER, SELFPAY | END | disposition home or self-care (01) | LOC: SWHD 08:53 | PROVIDERS: PCP Internal Medicine; Referring Provider Internal Medicine; Visit Provider Student in an Organized Health Care Education/Training Program | DX: S01.90XA Unspecified open wound of unspecified part of head, initial encounter (principal); X58.XXXA Exposure to other specified factors, initial encounter; D48.5 Neoplasm of uncertain behavior of skin; C76.0 Malignant neoplasm of head, face and neck; C49.0 Malignant neoplasm of connective and soft tissue of head, face and neck; Z87.891 Personal history of nicotine dependence | CPT/HCPCS: 99213; G0463 ==

== ENCOUNTER → 2025-03-11 | Outpatient (CLI) | payer OTHER, MEDICAID, SELFPAY ==
[2025-03-11 12:28] LABS: Basophils # (Auto) 0.1 Thou/mm3 (0.0-0.2); Basophils % (Auto) 0 % (0-2.5); Eosinophils # (Auto) 0.3 Thou/mm3 (0.0-0.5); Eosinophils % (Auto) 3 % (0-10); Hematocrit 28.1 % (41.0-53.0); Immature Granulocytes Auto 0.07 Thou/mm3 (0.00-0.00); Lymphocytes # (Auto) 1.6 Thou/mm3 (1.0-4.8); Lymphocytes % (Auto) 13 % (10-50); Mean Corpuscular HGB Conc 31.0 g/dl (31.0-37.0); Mean Corpuscular Hemoglobin 25.8 pg (25.0-35.0); Mean Corpuscular Volume 83 fL (80-100); Monocytes # (Auto) 0.9 Thou/mm3 (0.0-0.8); Monocytes % (Auto) 7 % (0-12); Neutrophils # (Auto) 9.6 Thou/mm3 (1.8-7.7); Neutrophils % (Auto) 77 % (37-80); Nucleated Red Blood Cell # 0.00 Thou/mm3 (0.00-0.00); Nucleated Red Blood Cell % 0 /100 WBC (0); Platelet Count 382 Thou/mm3 (140-440); RDW Standard Deviation 43.6 fL (35.1-43.9); Red Blood Count 3.37 Miln/mm3 (4.50-5.90); White Blood Count 12.5 Thou/mm3 (3.8-10.6)
[2025-03-11 12:45] LABS: Hemoglobin 8.7 g/dL (13.5-16.0)
[2025-03-11 13:20] LABS: Alanine Aminotransferase 22 U/L (10-49); Albumin, Serum 4.3 gm/dL (3.4-4.8); Albumin/Globulin Ratio 1.3 (1.2-2.2); Alkaline Phosphatase 140 U/L (46-116); Anion Gap 10 (7-16); Aspartate Amino Transferase 18 U/L (0-34); BUN/Creatinine Ratio 16 Ratio (12-20); Bilirubin,Total 0.3 mg/dL (0.3-1.2); Blood Urea Nitrogen 36 mg/dL (9-23); Calcium 10.1 mg/dL (8.3-10.6); Calcium (Corrected) 10.1 mg/dL (8.5-10.1); Carbon Dioxide 22.7 mMol/L (20.0-31.0); Chloride 104 mMol/L (98-107); Creatinine (Component) 2.2 mg/dL (0.6-1.3); Free T4 (Free Thyroxine) 1.06 ng/dL (0.89-1.76); Globulin 3.3 gm/dL (2.3-3.5); Glucose 117 mg/dL (74-106); Osmolality,Calculated 283 (275-295); Potassium 4.7 mMol/L (3.4-5.1); Sodium 137 mMol/L (136-145); Thyroid Stimulating Hormone 2.56 uIU/mL (0.55-4.78); Total Protein 7.6 gm/dL (5.7-8.2); eGFR 30 See Note
== END | disposition home or self-care (01) ==
PROVIDERS: PCP Internal Medicine; Referring Provider Internal Medicine Hematology & Oncology; Visit Provider Internal Medicine Hematology & Oncology
DX: C44.90 Unspecified malignant neoplasm of skin, unspecified (principal)
CPT/HCPCS: 36415; 80053; 84439; 84443; 85025

== ENCOUNTER → 2025-03-12 | Outpatient (CLI) | payer OTHER, SELFPAY | END | disposition home or self-care (01) | LOC: SWHD 13:51 | PROVIDERS: PCP Internal Medicine; Referring Provider Internal Medicine; Visit Provider Student in an Organized Health Care Education/Training Program | DX: S01.90XA Unspecified open wound of unspecified part of head, initial encounter (principal); X58.XXXA Exposure to other specified factors, initial encounter; D48.5 Neoplasm of uncertain behavior of skin; C76.0 Malignant neoplasm of head, face and neck; C49.0 Malignant neoplasm of connective and soft tissue of head, face and neck; Z87.891 Personal history of nicotine dependence | CPT/HCPCS: 99213; G0463 ==

== ENCOUNTER → 2025-03-14 | Outpatient (CLI) | payer OTHER, SELFPAY | END | disposition home or self-care (01) | LOC: SWHD 12:57 | PROVIDERS: PCP Internal Medicine; Referring Provider Internal Medicine; Visit Provider Surgery | DX: S01.90XA Unspecified open wound of unspecified part of head, initial encounter (principal); X58.XXXA Exposure to other specified factors, initial encounter; D48.5 Neoplasm of uncertain behavior of skin; C76.0 Malignant neoplasm of head, face and neck; C49.0 Malignant neoplasm of connective and soft tissue of head, face and neck; Z87.891 Personal history of nicotine dependence | CPT/HCPCS: 99213; G0463 ==

== ENCOUNTER → 2025-03-17 | Outpatient (CLI) | payer OTHER, SELFPAY ==
[2025-03-17 18:17] LABS: Basophils # (Auto) 0.1 Thou/mm3 (0.0-0.2); Basophils % (Auto) 0 % (0-2.5); Eosinophils # (Auto) 0.2 Thou/mm3 (0.0-0.5); Eosinophils % (Auto) 1 % (0-10); Hematocrit 26.2 % (41.0-53.0); Immature Granulocytes Auto 0.11 Thou/mm3 (0.00-0.00); Lymphocytes # (Auto) 1.6 Thou/mm3 (1.0-4.8); Lymphocytes % (Auto) 10 % (10-50); Mean Corpuscular HGB Conc 30.2 g/dl (31.0-37.0); Mean Corpuscular Hemoglobin 24.7 pg (25.0-35.0); Mean Corpuscular Volume 82 fL (80-100); Monocytes # (Auto) 1.3 Thou/mm3 (0.0-0.8); Monocytes % (Auto) 8 % (0-12); Neutrophils # (Auto) 12.9 Thou/mm3 (1.8-7.7); Neutrophils % (Auto) 80 % (37-80); Nucleated Red Blood Cell # 0.00 Thou/mm3 (0.00-0.00); Nucleated Red Blood Cell % 0 /100 WBC (0); Platelet Count 412 Thou/mm3 (140-440); RDW Standard Deviation 42.9 fL (35.1-43.9); Red Blood Count 3.20 Miln/mm3 (4.50-5.90); White Blood Count 16.1 Thou/mm3 (3.8-10.6)
[2025-03-17 18:19] LABS: Hemoglobin 7.9 g/dL (13.5-16.0)
[2025-03-17 18:43] LABS: Alanine Aminotransferase 22 U/L (10-49); Albumin, Serum 4.2 gm/dL (3.4-4.8); Albumin/Globulin Ratio 1.2 (1.2-2.2); Alkaline Phosphatase 133 U/L (46-116); Anion Gap 11 (7-16); Aspartate Amino Transferase 17 U/L (0-34); BUN/Creatinine Ratio 13 Ratio (12-20); Bilirubin,Total 0.3 mg/dL (0.3-1.2); Blood Urea Nitrogen 29 mg/dL (9-23); Calcium 10.2 mg/dL (8.3-10.6); Calcium (Corrected) 10.2 mg/dL (8.5-10.1); Carbon Dioxide 23.8 mMol/L (20.0-31.0); Chloride 98 mMol/L (98-107); Creatinine (Component) 2.2 mg/dL (0.6-1.3); Free T4 (Free Thyroxine) 1.09 ng/dL (0.89-1.76); Globulin 3.4 gm/dL (2.3-3.5); Glucose 138 mg/dL (74-106); Osmolality,Calculated 274 (275-295); Potassium 4.7 mMol/L (3.4-5.1); Sodium 133 mMol/L (136-145); Thyroid Stimulating Hormone 2.18 uIU/mL (0.55-4.78); Total Protein 7.6 gm/dL (5.7-8.2); eGFR 30 See Note
== END | disposition home or self-care (01) ==
LOC: SCTO 14:47
PROVIDERS: PCP Internal Medicine; Referring Provider Internal Medicine Hematology & Oncology; Visit Provider Internal Medicine Hematology & Oncology
DX: C44.90 Unspecified malignant neoplasm of skin, unspecified (principal)
CPT/HCPCS: 36415; 80053; 84439; 84443; 85025

== ENCOUNTER → 2025-03-17 | Outpatient (CLI) | payer OTHER, SELFPAY ==
--- NOTE | 2025-03-17 11:39 | XR_ITS ---
Examination: CT brain head without contrast. 2-D sagittal coronal reconstructions Date and time of exam: March, 1153 hours INDICATIONS: Large left frontal lobe tumor, external to the left frontal lobe intracranial portion 21 mm in thickness with extracranial component portion 7 x 5.3 cm on January 06, 2025 CTDI: vol (mGy): 46.2 DLP: (mGycm): 1212 Technique: Multiple CT axial sections of the brain have been obtained, 5 mm slice thickness. Contrast has not been administered. 2-D sagittal, coronal reconstructions have been obtained Low dose protocols were performed. One or more of the following dose reduction techniques were used; automated exposure control, adjustment of the mA and/or KV according to patient size, use of iterative reconstruction technique. Findings: Large left frontal scalp tumor mass extending intracranial The intracranial portion measures 19 mm in thickness the extracranial scalp portion has increased in size since the prior study, measuring 11 x 7 cm The ventricles are not enlarged No acute hemorrhage Fourth ventricle is midline IMPRESSION: The intracranial portion of the scalp mass is similar in thickness The frontal scalp tumor mass is larger, 11 x 7 cm compared to 7 x 5.3 cm on January 06, 2025
== END | disposition home or self-care (01) ==
PROVIDERS: PCP Internal Medicine; Referring Provider Internal Medicine Hematology & Oncology; Visit Provider Internal Medicine Hematology & Oncology
DX: R22.0 Localized swelling, mass and lump, head (principal); C44.90 Unspecified malignant neoplasm of skin, unspecified
CPT/HCPCS: 70450

== ENCOUNTER → 2025-03-19 | Outpatient (CLI) | payer OTHER, SELFPAY | END | disposition home or self-care (01) | LOC: SWHD 13:43 | PROVIDERS: PCP Internal Medicine; Referring Provider Internal Medicine; Visit Provider Student in an Organized Health Care Education/Training Program | DX: S01.90XA Unspecified open wound of unspecified part of head, initial encounter (principal); D48.5 Neoplasm of uncertain behavior of skin; C76.0 Malignant neoplasm of head, face and neck; C49.0 Malignant neoplasm of connective and soft tissue of head, face and neck; Z87.891 Personal history of nicotine dependence | CPT/HCPCS: 99213; G0463 ==

== ENCOUNTER → 2025-03-21 | Outpatient (CLI) | payer OTHER, SELFPAY | END | disposition home or self-care (01) | LOC: SWHD 12:39 | PROVIDERS: PCP Internal Medicine; Referring Provider Internal Medicine; Visit Provider Student in an Organized Health Care Education/Training Program | DX: S01.90XA Unspecified open wound of unspecified part of head, initial encounter (principal); X58.XXXA Exposure to other specified factors, initial encounter; D48.5 Neoplasm of uncertain behavior of skin; C76.0 Malignant neoplasm of head, face and neck; C49.0 Malignant neoplasm of connective and soft tissue of head, face and neck; Z87.891 Personal history of nicotine dependence; I10 Essential (primary) hypertension | CPT/HCPCS: 99213; G0463 ==

== ENCOUNTER → 2025-03-24 | Outpatient (CLI) | payer OTHER, MEDICAID, SELFPAY ==
[2025-03-24 12:07] LABS: Basophils # (Auto) 0.0 Thou/mm3 (0.0-0.2); Basophils % (Auto) 0 % (0-2.5); Eosinophils # (Auto) 0.2 Thou/mm3 (0.0-0.5); Eosinophils % (Auto) 2 % (0-10); Hematocrit 24.4 % (41.0-53.0); Immature Granulocytes Auto 0.08 Thou/mm3 (0.00-0.00); Lymphocytes # (Auto) 1.9 Thou/mm3 (1.0-4.8); Lymphocytes % (Auto) 13 % (10-50); Mean Corpuscular HGB Conc 31.6 g/dl (31.0-37.0); Mean Corpuscular Hemoglobin 25.2 pg (25.0-35.0); Mean Corpuscular Volume 80 fL (80-100); Monocytes # (Auto) 1.0 Thou/mm3 (0.0-0.8); Monocytes % (Auto) 7 % (0-12); Neutrophils # (Auto) 10.7 Thou/mm3 (1.8-7.7); Neutrophils % (Auto) 77 % (37-80); Nucleated Red Blood Cell # 0.00 Thou/mm3 (0.00-0.00); Nucleated Red Blood Cell % 0 /100 WBC (0); Platelet Count 382 Thou/mm3 (140-440); RDW Standard Deviation 42.5 fL (35.1-43.9); Red Blood Count 3.06 Miln/mm3 (4.50-5.90); White Blood Count 13.9 Thou/mm3 (3.8-10.6)
[2025-03-24 12:20] LABS: Hemoglobin 7.7 g/dL (13.5-16.0)
[2025-03-24 12:46] LABS: Alanine Aminotransferase 13 U/L (10-49); Albumin, Serum 3.9 gm/dL (3.4-4.8); Albumin/Globulin Ratio 1.3 (1.2-2.2); Alkaline Phosphatase 128 U/L (46-116); Anion Gap 8 (7-16); Aspartate Amino Transferase 12 U/L (0-34); BUN/Creatinine Ratio 22 Ratio (12-20); Bilirubin,Total < 0.2 mg/dL (0.3-1.2); Blood Urea Nitrogen 43 mg/dL (9-23); Calcium 9.8 mg/dL (8.3-10.6); Calcium (Corrected) 9.9 mg/dL (8.5-10.1); Carbon Dioxide 28.7 mMol/L (20.0-31.0); Chloride 100 mMol/L (98-107); Creatinine (Component) 2.0 mg/dL (0.6-1.3); Globulin 3.0 gm/dL (2.3-3.5); Glucose 141 mg/dL (74-106); Osmolality,Calculated 286 (275-295); Potassium 5.0 mMol/L (3.4-5.1); Sodium 137 mMol/L (136-145); Total Protein 6.9 gm/dL (5.7-8.2); eGFR 34 See Note
== END | disposition home or self-care (01) ==
LOC: SCTO 11:26
PROVIDERS: PCP Internal Medicine; Referring Provider Internal Medicine Hematology & Oncology; Visit Provider Internal Medicine Hematology & Oncology
DX: C44.90 Unspecified malignant neoplasm of skin, unspecified (principal)
CPT/HCPCS: 36415; 80053; 85025

== ENCOUNTER 2025-03-25 08:40 | Outpatient (RCR) | payer OTHER, MEDICAID, SELFPAY ==
[2025-03-25 10:37] LABS: Free T4 (Free Thyroxine) 1.06 ng/dL (0.89-1.76); Thyroid Stimulating Hormone 2.44 uIU/mL (0.55-4.78)
== END 2025-04-09 23:59 | disposition home or self-care (01) ==
LOC: SCTC 08:40
PROVIDERS: PCP Internal Medicine; Referring Provider Internal Medicine; Visit Provider Internal Medicine Hematology & Oncology
DX: Z51.11 Encounter for antineoplastic chemotherapy (principal); C44.529 Squamous cell carcinoma of skin of other part of trunk; D64.9 Anemia, unspecified
CPT/HCPCS: 36415; 36430; 84439; 84443; 86850; 86900; 86901; 86923; 96413; J3490; J7040; J9119; P9016

== ENCOUNTER → 2025-03-26 | Outpatient (CLI) | payer OTHER, SELFPAY | END | disposition home or self-care (01) | LOC: SWHD 13:36 | PROVIDERS: PCP Internal Medicine; Referring Provider Internal Medicine; Visit Provider Student in an Organized Health Care Education/Training Program | DX: S01.90XA Unspecified open wound of unspecified part of head, initial encounter (principal); X58.XXXA Exposure to other specified factors, initial encounter; D48.5 Neoplasm of uncertain behavior of skin; I10 Essential (primary) hypertension; C76.0 Malignant neoplasm of head, face and neck; C49.0 Malignant neoplasm of connective and soft tissue of head, face and neck; Z87.891 Personal history of nicotine dependence | CPT/HCPCS: 99213; G0463 ==

== ENCOUNTER → 2025-03-28 | Outpatient (CLI) | payer OTHER, SELFPAY | END | disposition home or self-care (01) | LOC: SWHD 12:50 | PROVIDERS: PCP Internal Medicine; Referring Provider Internal Medicine; Visit Provider Surgery | DX: S01.90XA Unspecified open wound of unspecified part of head, initial encounter (principal); X58.XXXA Exposure to other specified factors, initial encounter; D48.5 Neoplasm of uncertain behavior of skin; C76.0 Malignant neoplasm of head, face and neck; C49.0 Malignant neoplasm of connective and soft tissue of head, face and neck; Z87.891 Personal history of nicotine dependence; I10 Essential (primary) hypertension | CPT/HCPCS: 99213; G0463 ==

== ENCOUNTER → 2025-03-31 | Outpatient (CLI) | payer OTHER, SELFPAY ==
[2025-03-31 13:18] LABS: Basophils # (Auto) 0.1 Thou/mm3 (0.0-0.2); Basophils % (Auto) 0 % (0-2.5); Eosinophils # (Auto) 0.2 Thou/mm3 (0.0-0.5); Eosinophils % (Auto) 1 % (0-10); Hematocrit 28.1 % (41.0-53.0); Hemoglobin 8.9 g/dL (13.5-16.0); Immature Granulocytes Auto 0.10 Thou/mm3 (0.00-0.00); Lymphocytes # (Auto) 2.0 Thou/mm3 (1.0-4.8); Lymphocytes % (Auto) 13 % (10-50); Mean Corpuscular HGB Conc 31.7 g/dl (31.0-37.0); Mean Corpuscular Hemoglobin 25.4 pg (25.0-35.0); Mean Corpuscular Volume 80 fL (80-100); Monocytes # (Auto) 1.1 Thou/mm3 (0.0-0.8); Monocytes % (Auto) 8 % (0-12); Neutrophils # (Auto) 11.4 Thou/mm3 (1.8-7.7); Neutrophils % (Auto) 77 % (37-80); Nucleated Red Blood Cell # 0.00 Thou/mm3 (0.00-0.00); Nucleated Red Blood Cell % 0 /100 WBC (0); Platelet Count 376 Thou/mm3 (140-440); RDW Standard Deviation 46.3 fL (35.1-43.9); Red Blood Count 3.50 Miln/mm3 (4.50-5.90); White Blood Count 14.8 Thou/mm3 (3.8-10.6)
[2025-03-31 13:33] LABS: Alanine Aminotransferase 15 U/L (10-49); Albumin, Serum 3.7 gm/dL (3.4-4.8); Albumin/Globulin Ratio 1.1 (1.2-2.2); Alkaline Phosphatase 130 U/L (46-116); Anion Gap 10 (7-16); Aspartate Amino Transferase 10 U/L (0-34); BUN/Creatinine Ratio 18 Ratio (12-20); Bilirubin,Total 0.3 mg/dL (0.3-1.2); Blood Urea Nitrogen 36 mg/dL (9-23); Calcium 10.0 mg/dL (8.3-10.6); Calcium (Corrected) 10.2 mg/dL (8.5-10.1); Carbon Dioxide 25.5 mMol/L (20.0-31.0); Chloride 100 mMol/L (98-107); Creatinine (Component) 2.0 mg/dL (0.6-1.3); Globulin 3.4 gm/dL (2.3-3.5); Glucose 106 mg/dL (74-106); Osmolality,Calculated 278 (275-295); Potassium 5.2 mMol/L (3.4-5.1); Sodium 135 mMol/L (136-145); Total Protein 7.1 gm/dL (5.7-8.2); eGFR 34 See Note
== END | disposition home or self-care (01) ==
LOC: SCTO 12:38
PROVIDERS: PCP Internal Medicine; Referring Provider Internal Medicine Hematology & Oncology; Visit Provider Internal Medicine Hematology & Oncology
DX: C44.90 Unspecified malignant neoplasm of skin, unspecified (principal)
CPT/HCPCS: 36415; 80053; 85025

== ENCOUNTER → 2025-04-02 | Outpatient (CLI) | payer OTHER, SELFPAY | END | disposition home or self-care (01) | LOC: SWHD 09:58 | PROVIDERS: PCP Internal Medicine; Referring Provider Internal Medicine; Visit Provider Surgery | DX: S01.90XA Unspecified open wound of unspecified part of head, initial encounter (principal); X58.XXXA Exposure to other specified factors, initial encounter; D48.5 Neoplasm of uncertain behavior of skin; C76.0 Malignant neoplasm of head, face and neck; C49.0 Malignant neoplasm of connective and soft tissue of head, face and neck; Z87.891 Personal history of nicotine dependence; I10 Essential (primary) hypertension | CPT/HCPCS: 99213; G0463 ==

== ENCOUNTER → 2025-04-04 | Outpatient (CLI) | payer OTHER, SELFPAY | END | disposition home or self-care (01) | LOC: SWHD 13:07 | PROVIDERS: PCP Internal Medicine; Referring Provider Internal Medicine; Visit Provider Surgery | DX: S01.90XA Unspecified open wound of unspecified part of head, initial encounter (principal); X58.XXXA Exposure to other specified factors, initial encounter; D48.5 Neoplasm of uncertain behavior of skin; C76.0 Malignant neoplasm of head, face and neck; C49.0 Malignant neoplasm of connective and soft tissue of head, face and neck; Z87.891 Personal history of nicotine dependence; I10 Essential (primary) hypertension | CPT/HCPCS: 99213; G0463 ==

== ENCOUNTER → 2025-04-07 | Outpatient (CLI) | payer OTHER, SELFPAY ==
[2025-04-07 14:31] LABS: Basophils # (Auto) 0.1 Thou/mm3 (0.0-0.2); Basophils % (Auto) 0 % (0-2.5); Eosinophils # (Auto) 0.2 Thou/mm3 (0.0-0.5); Eosinophils % (Auto) 1 % (0-10); Hematocrit 30.0 % (41.0-53.0); Hemoglobin 9.4 g/dL (13.5-16.0); Immature Granulocytes Auto 0.09 Thou/mm3 (0.00-0.00); Lymphocytes # (Auto) 1.7 Thou/mm3 (1.0-4.8); Lymphocytes % (Auto) 11 % (10-50); Mean Corpuscular HGB Conc 31.3 g/dl (31.0-37.0); Mean Corpuscular Hemoglobin 25.6 pg (25.0-35.0); Mean Corpuscular Volume 82 fL (80-100); Monocytes # (Auto) 1.0 Thou/mm3 (0.0-0.8); Monocytes % (Auto) 7 % (0-12); Neutrophils # (Auto) 12.3 Thou/mm3 (1.8-7.7); Neutrophils % (Auto) 80 % (37-80); Nucleated Red Blood Cell # 0.00 Thou/mm3 (0.00-0.00); Nucleated Red Blood Cell % 0 /100 WBC (0); Platelet Count 418 Thou/mm3 (140-440); RDW Standard Deviation 47.8 fL (35.1-43.9); Red Blood Count 3.67 Miln/mm3 (4.50-5.90); White Blood Count 15.4 Thou/mm3 (3.8-10.6)
[2025-04-07 14:43] LABS: Alanine Aminotransferase 18 U/L (10-49); Albumin, Serum 4.2 gm/dL (3.4-4.8); Albumin/Globulin Ratio 1.3 (1.2-2.2); Alkaline Phosphatase 136 U/L (46-116); Anion Gap 11 (7-16); Aspartate Amino Transferase 15 U/L (0-34); BUN/Creatinine Ratio 20 Ratio (12-20); Bilirubin,Total 0.3 mg/dL (0.3-1.2); Blood Urea Nitrogen 38 mg/dL (9-23); Calcium 10.1 mg/dL (8.3-10.6); Calcium (Corrected) 10.1 mg/dL (8.5-10.1); Carbon Dioxide 24.4 mMol/L (20.0-31.0); Chloride 102 mMol/L (98-107); Creatinine (Component) 1.9 mg/dL (0.6-1.3); Globulin 3.3 gm/dL (2.3-3.5); Glucose 128 mg/dL (74-106); Osmolality,Calculated 284 (275-295); Potassium 5.1 mMol/L (3.4-5.1); Sodium 137 mMol/L (136-145); Total Protein 7.5 gm/dL (5.7-8.2); eGFR 36 See Note
== END | disposition home or self-care (01) ==
LOC: SCTO 13:35
PROVIDERS: PCP Internal Medicine; Referring Provider Internal Medicine Hematology & Oncology; Visit Provider Internal Medicine Hematology & Oncology
DX: C44.90 Unspecified malignant neoplasm of skin, unspecified (principal)
CPT/HCPCS: 36415; 80053; 85025

== ENCOUNTER → 2025-04-09 | Outpatient (CLI) | payer OTHER, SELFPAY | END | disposition home or self-care (01) | LOC: SWHD 11:20 | PROVIDERS: PCP Internal Medicine; Referring Provider Internal Medicine; Visit Provider Student in an Organized Health Care Education/Training Program | DX: S01.90XA Unspecified open wound of unspecified part of head, initial encounter (principal); X58.XXXA Exposure to other specified factors, initial encounter; D48.5 Neoplasm of uncertain behavior of skin; C76.0 Malignant neoplasm of head, face and neck; C49.0 Malignant neoplasm of connective and soft tissue of head, face and neck; Z87.891 Personal history of nicotine dependence; I10 Essential (primary) hypertension | CPT/HCPCS: 99213; G0463 ==